=== PATIENT | female | born 1960 | race Caucasian/White ===

== ENCOUNTER 2019-05-01 23:54 | Emergency (ER) | payer OTHER, SELFPAY ==
[2019-05-02 00:03] VITALS: BP 135/71; PULSE 84; RESP 14; TEMP 37; O2SAT 99
--- NOTE | 2019-05-02 01:21 | ED.HA ---
HPI - Headache General Chief Complaint: Headache Stated Complaint: headache Time Seen by Provider: 05/02/19 01:19 Source: patient and RN notes reviewed Mode of arrival: other Limitations: no limitations History of Present Illness HPI Narrative: Pt is a 58 y/o female who presents to the ED with c/o a squeezing temporal headache that began at 4 PM yesterday, but has not improved. Pt states that she took her medication as prescribed today. Pt states that she lost her pet today. Pt states that she cried a lot. Pt notes that her temporal artery is popping out, but the artery feels the same on both sides. Pt reports a cough and chronic BLE weakness, but denies a fever, sore throat, congestion, rhinorrhea, and BLE numbness. 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: headache Onset (ago): hour(s) Location: right, left and temporal Quality & Timing: squeezing Relieving factors: nothing Context: other (recent pet loss) Associated symptoms: weakness (chronic BLE) and cough Treatments prior to arrival: other (ASA 81 mg) Related Data Home Medications Medication Instructions Recorded Confirmed cholecalciferol (vitamin D3) 4,000 4,000 unit PO DAILY 02/06/19 02/28/19 unit tablet diclofenac sodium 75 mg 75 mg PO BID 02/06/19 02/28/19 tablet,delayed release ezetimibe 10 mg tablet 10 mg PO DAILY 02/06/19 02/28/19 flu vacc qs 2018- (6 mos up) 60 vial IM 02/06/19 02/28/19 mcg (15 mcg x 4)/0.5 mL IM susp gabapentin 100 mg capsule 100 mg PO BID PRN 02/06/19 02/28/19 loratadine 10 mg capsule 10 mg PO DAILY 02/06/19 02/28/19 meclizine 25 mg tablet 25 mg PO QID PRN tablet 02/06/19 02/28/19 methocarbamol 750 mg tablet 750 mg PO DAILY tablet 02/06/19 02/28/19 pregabalin 50 mg capsule 50 mg PO DAILY cap 02/06/19 02/28/19 Allergies Allergy/AdvReac Type Severity Reaction Status Date / Time progesterone Allergy Unknown shortness Verified 02/28/19 13:24 of breath Review of Systems Review of Systems: All systems reviewed & are unremarkable except as noted in HPI and below Constitutional: Constitutional: Denies fever(s) ENT: Denies sore throat and Denies other (rhinorrhea, congestion) Respiratory: Respiratory: Reports cough Neurologic: Reports headache(s) (temporal), Denies numbness (BLE) and Reports weakness (chronic BLE) PMFSH Past Medical History Medical History Chronic midline low back pain with bilateral sciatica Fibromyalgia Mixed hyperlipidemia Osteoporosis Primary osteoarthritis, unspecified site Surgical History Surgical History History of back surgery Family History Family History (Updated 11/07/17 @ 09:02 by DOCTOR UNKNOWN) Father Hypertension Cerebrovascular accident Other Family history of coronary artery disease Family history of elevated blood lipids Social History Social History Smoking status: Never smoker Alcohol intake: never Exam Const: General: cooperative, no acute distress and alert Nutritional Appearance: well nourished Orientation/consciousness: patient oriented x3 Limitations: no limitations HENMT: Mouth: Yes lip normal and Yes moist mucous membranes Resp: Effort & Inspection: normal respiratory effort Auscultation: clear to auscultation bilaterally Cardio: Rate: regular rate Rhythm: regular rhythm GI: GI Palp: Yes Soft to palpation and No Tenderness to palpation present (GI) Auscultation: normal bowel sounds Skin: General skin exam: normal color Neuro: General: patient oriented x3 Cognition (Neuro): normal cognition Speech: normal speech Extrem: General: normal to inspection, full ROM and no clubbing, cyanosis or edema Psych: Mental Status: mental status grossly normal Affect: normal affect Attitude: cooperative Course Course Emergency Course: Patient with normal sed rate.
[2019-05-02 01:23] VITALS: BP 131/76; PULSE 63; RESP 16; TEMP 36.6; O2SAT 100
[2019-05-02] MEDS: KETOROLAC 30 MG/ML VIAL (*BKC) IV PUSH (01:46)
[2019-05-02 01:51] LABS: Basophils Absolute Auto 0.1 K/mm3 (0.0-0.1); Eosinophils Absolute Auto 0.1 K/mm3 (0-0.3); Eosinophils Percent Auto 1.5 % (0-4.4); Hematocrit 39.5 % (37.0-47.0); Immature Granulocyte Absolute 0.02 K/mm3 (0.00-0.031); Immature Granulocyte Percent A 0.3 % (0-0.5); Lymphocytes Absolute Auto 2.57 K/mm3 (0.9-3.2); Lymphocytes Percent Auto 42.4 % (18.3-44.2); Mean Corpuscular HGB Conc 32.9 g/dl (32-36); Mean Corpuscular Hemoglobin 31.3 pg (26-34); Mean Platelet Volume 9.5 fl (7.4-10.4); Monocytes Absolute Auto 0.5 K/mm3 (0.1-0.6); Monocytes Percent Auto 8.3 % (2.6-8.5); Neutrophils Absolute Auto 2.8 K/mm3 (1.3-6.7); Neutrophils Percent Auto 46.5 % (45.5-73.1); Platelet Count Result 279 k/mm3 (150-375); Red Blood Count 4.16 M/mm3 (4.2-5.4); Red Cell Distribution Width 11.6 % (11.5-14.5); White Blood Count 6.1 K/mm3 (4.5-10.0)
[2019-05-02 02:03] LABS: Blood Urea Nitrogen 11 mg/dL (7-17); Calcium 9.6 mg/dL (8.4-10.2); Carbon Dioxide 30 mmol/L (22-30); Chloride 99 mmol/L (98-107); Estimated CRCL calculation 66 ml/min; Estimated Glomerular Filt Rate > 60; Glucose 90 mg/dL (65-105); Potassium 3.9 mmol/L (3.4-5.0); Sodium 140 mmol/L (137-145)
[2019-05-02 02:16] VITALS: TEMP 36.6
[2019-05-02 02:19] LABS: Erythrocyte Sedimentation Rate 19 mm/hr (0-20)
[2019-05-02 03:14] VITALS: BP 118/83; PULSE 58; RESP 16; TEMP 36.4; O2SAT 100
== END 2019-05-02 03:18 | disposition home or self-care (01) ==
PROVIDERS: Emergency Provider Emergency Medicine; PCP Family Medicine
DX: G44.209 Tension-type headache, unspecified, not intractable (principal); M54.42 Lumbago with sciatica, left side; M54.41 Lumbago with sciatica, right side; M79.7 Fibromyalgia; E78.2 Mixed hyperlipidemia; M81.0 Age-related osteoporosis without current pathological fracture
CPT/HCPCS: 36415; 80048; 85025; 85652; 96374; 99284; J1885

== ENCOUNTER 2019-07-04 13:55 | Emergency (ER) | payer OTHER, SELFPAY ==
--- NOTE | ~2019-07-04 | XR_ITS ---
EXAMINATION: XR ankle LT min 3V DATE: 07/04/2019 14:20 INDICATION: Left ankle pain TECHNIQUE: Anteroposterior, lateral, mortise, and additional oblique view of the ankle were obtained. COMPARISON: None. FINDINGS: There is mild soft tissue swelling of the ankle near the lateral malleolus. No fracture, di slocation, or subluxation is present. IMPRESSION: 1. Soft tissue swelling without acute osseous abnormality. Reviewed, dictated and finalized at location A.
[2019-07-04 14:07] VITALS: BP 136/91; PULSE 74; RESP 16; TEMP 36.8; O2SAT 98
--- NOTE | 2019-07-04 14:07 | PC.NURSE ---
1407- pt taken from triage to xray
--- NOTE | 2019-07-04 14:13 | ED.LOWEXIN ---
HPI - Extremity Injury (Lower) General Chief Complaint: Extremity Injury, Lower Stated Complaint: Fall Left ankle pain Time Seen by Provider: 07/04/19 14:13 Source: patient and RN notes reviewed History of Present Illness HPI Narrative: Patient is a 58-year-old female that presents the urgent care with complaints of left ankle pain. Patient states that she was sitting crosslegged on the couch Monday and stood up on her foot in which fell asleep . Therefore patient states that she twisted the left ankle and fell. Patient denies hitting her head or any loss of consciousness. Denies any other acute complaints or injuries due to the fall. Patient does take chronic medication for chronic fibromyalgia pain. Patient states she has been taking her prescription medication as prescribed. No other acute complaints. Patient read the plan of care. Related Data Home Medications Medication Instructions Recorded Confirmed diclofenac potassium 75 mg PO DAILY 07/04/19 07/04/19 ergocalciferol (vitamin D2) 1 mcg WEEKLY 07/04/19 07/04/19 [Vitamin D2] fenofibrate nanocrystallized 145 mg PO DAILY 07/04/19 07/04/19 methocarbamol [Robaxin-750] 1,125 mg PO DAILY 07/04/19 07/04/19 omeprazole magnesium [Prilosec OTC] 40 mg PO DAILY 07/04/19 07/04/19 pregabalin [Lyrica] 50 mg PO DAILY 07/04/19 07/04/19 Allergies Allergy/AdvReac Type Severity Reaction Status Date / Time progesterone Allergy Unknown shortness Verified 02/28/19 13:24 of breath Review of Systems Review of Systems: Narrative: CONSTITUTIONAL: Denies fever, chills, or sweats. EYES: Denies visual changes, redness, or discharge. ENT: Denies rhinorrhea, congestion, sore throat, or otalgia. CARDIOVASCULAR: Denies chest pain, palpitations, or edema. RESPIRATORY: Denies cough or dyspnea. GASTROINTESTINAL: Denies abdominal pain, nausea, vomiting, or diarrhea. GENITOURINARY: Denies dysuria or hematuria. SKIN: Denies rash or itching. MUSCULOSKELETAL: Reports of left ankle pain radiating to the heel and lateral left foot NEUROLOGIC: Denies headache, numbness, or weakness. All other systems reviewed are negative, except as documented in HPI. [facility] Family History Family History (Updated 11/07/17 @ 09:02 by DOCTOR UNKNOWN) Father Hypertension Cerebrovascular accident Other Family history of coronary artery disease Family history of elevated blood lipids Social History Social History Smoking status: Never smoker Alcohol intake: never Gender identity (if verbalized by the patient): Female Comments At the time of my signature, I reviewed and agree with the nursing past medical, surgical, social, and family history. There is no relevant family history pertinent to the patient complaint. Exam Narrative: Exam Narrative: GENERAL: This is a well-nourished, well-developed patient, in no apparent distress. HEAD: normocephalic, atraumatic. EYES: PERRL. Sclera clear/white. Vision is grossly intact. EARS: External ears normal NOSE: External nose normal with no obvious nasal discharge THROAT: Mucous membranes moist NECK: Neck supple CARDIOVASCULAR: Regular rate and rhythm without murmurs, gallops, or rubs. RESPIRATORY: Clear to auscultation. Breath sounds equal bilaterally. No wheezes, rales, or rhonchi. SKIN: warm, intact with no suspicious lesions or rash, good texture and turgor. NEURO: awake, alert, and oriented to person, place and time. There were no obvious focal neurologic abnormalities. EXTREMITIES: mild to moderate edema to later left malleolous with moderate tenderness and eccoymosis; moderates tenderness with edema to the later left foot; postive strong left pedal pulse with capillary refill less than 2 seconds; ROM limited due to pain, difficultly with weight bearing Course Vital Signs Vital signs: Vital Signs Temperature 98.3 F 07/04/19 14:07 Pulse Rate 74 07/04/19 14:07 Respiratory Rate 16
== END 2019-07-04 14:43 | disposition home or self-care (01) ==
PROVIDERS: Emergency Provider Nurse Practitioner Family; PCP Nurse Practitioner Family
DX: S93.402A Sprain of unspecified ligament of left ankle, initial encounter (principal); S96.912A Strain of unspecified muscle and tendon at ankle and foot level, left foot, initial encounter; X50.9XXA Other and unspecified overexertion or strenuous movements or postures, initial encounter; M79.7 Fibromyalgia; I34.1 Nonrheumatic mitral (valve) prolapse; G62.9 Polyneuropathy, unspecified
CPT/HCPCS: 73610; 99213; G0463

== ENCOUNTER 2019-11-15 13:00 | Outpatient (CLI) | payer OTHER, SELFPAY ==
--- NOTE | ~2019-11-15 | US_ITS ---
EXAMINATION: US carotid duplex BI DATE: 11/15/2019 13:39 INDICATION: Other specified symptoms and signs involving the circulatory system. TECHNIQUE: Grayscale, color Doppler, and pulsed Doppler images of the cervical carotid arteries were obtained. The degree of vessel stenosis is placed in one of the following categories: normal, <50%, 5 0-69%, >=70% but less than near-occlusion, near-occlusion, or total occlusion. Note that percent sten osis relative to normal distal artery lumen diameter is indirectly measured from velocity measurement s as described by Diego, et al. Radiology 2003; [id number]. COMPARISON: None. FINDINGS: RIGHT: The right common carotid artery (CCA) peak systolic velocity (PSV) is 90 cm/s. The right internal car otid artery (ICA) PSV is 105 cm/s. The right ICA end-diastolic velocity (EDV) is 37 cm/s. The right I CA/CCA PSV ratio is 1.2. Grayscale and color Doppler images yield an estimate of <50% diameter reduct ion from plaque in the ICA. There is antegrade flow in the right vertebral artery. LEFT: The left CCA PSV is 96 cm/s. The left ICA PSV is 77 cm/s. The left ICA EDV is 38 cm/s. The left ICA/C CA PSV ratio is 0.8. Grayscale and color Doppler images yield an estimate of <50% diameter reduction from plaque in the ICA. There is antegrade flow in the left vertebral artery. IMPRESSION: 1. <50% stenosis in the right internal carotid artery. 2. <50% stenosis in the left internal carotid artery. Reviewed, dictated and finalized at location B.
== END 2019-11-15 13:01 | disposition home or self-care (01) ==
LOC: ANHIMG 13:07
PROVIDERS: PCP Nurse Practitioner Family; Visit Provider Internal Medicine Cardiovascular Disease
DX: I65.23 Occlusion and stenosis of bilateral carotid arteries (principal)
CPT/HCPCS: 93880

== ENCOUNTER 2020-05-19 14:36 | Outpatient (CLI) | payer OTHER, SELFPAY ==
[2020-05-19 15:35] LABS: Basophils Absolute Auto 0.1 K/mm3 (0.0-0.1); Basophils Percent Auto 1.3 % (0.2-1.2); Eosinophils Absolute Auto 0.1 K/mm3 (0-0.3); Eosinophils Percent Auto 1.3 % (0-4.4); Hematocrit 37.8 % (37.0-47.0); Hemoglobin 12.6 g/dL (12.0-15.0); Immature Granulocyte Absolute 0.01 K/mm3 (0.00-0.031); Immature Granulocyte Percent A 0.2 % (0-0.5); Lymphocytes Absolute Auto 1.95 K/mm3 (0.9-3.2); Lymphocytes Percent Auto 43.3 % (18.3-44.2); Mean Corpuscular HGB Conc 33.3 g/dl (32-36); Mean Corpuscular Volume 95.9 fl (80-100); Mean Platelet Volume 9.3 fl (7.4-10.4); Monocytes Absolute Auto 0.3 K/mm3 (0.1-0.6); Monocytes Percent Auto 6.7 % (2.6-8.5); Neutrophils Absolute Auto 2.1 K/mm3 (1.3-6.7); Neutrophils Percent Auto 47.2 % (45.5-73.1); Platelet Count Result 266 k/mm3 (150-375); Red Blood Count 3.94 M/mm3 (4.2-5.4); Red Cell Distribution Width 11.5 % (11.5-14.5); White Blood Count 4.5 K/mm3 (4.5-10.0)
[2020-05-19 15:38] LABS: Add Urine Microscopic? YES; Appearance Urine Clear (Clear); Bilirubin Urine Negative (Negative); Blood Urine Negative (Negative); Color Urine Yellow (Yellow); Glucose Urine UA Negative (Negative); Ketones Urine Negative (Negative); Leukocyte Esterase Ur Negative LEU/UL (Negative); Mucus Urine Rare /lpf; Nitrate Urine Negative (Negative); Protein Urine Negative (Negative); RBC Urine 0-2 /hpf (0-2); Specific Grav Ur 1.021 (1.001-1.035); Squamous Epithelial Cell Urine Rare /hpf (Few); Urobilinogen Urine Negative mg/dL (<2.0); WBC Urine 0-3 /hpf
[2020-05-19 15:49] LABS: Alanine Aminotransferase 15 U/L (4-35); Albumin Level 4.2 g/dL (3.5-5.1); Alkaline Phosphatase 43 U/L (38-126); Anion Gap 3 mmol/L (8-16); Aspartate Amino Transferase 26 U/L (14-36); Bilirubin,Total 0.4 mg/dL (0.2-1.3); Blood Urea Nitrogen 11 mg/dL (7-17); CRP < 0.5 mg/dL (<1.0); Calcium 9.2 mg/dL (8.4-10.2); Carbon Dioxide 30 mmol/L (22-30); Chloride 107 mmol/L (98-107); Creatine Kinase 56 U/L (30-135); Estimated Glomerular Filt Rate > 60; Glucose 91 mg/dL (65-105); Potassium 3.7 mmol/L (3.4-5.0); Sodium 140 mmol/L (137-145)
[2020-05-19 16:08] LABS: Erythrocyte Sedimentation Rate 17 mm/hr (0-20)
[2020-05-19 16:42] LABS: Vitamin D 25 Hydroxy 33.3 ng/mL
[2020-05-23 00:45] LABS: Aldolase 4.3 U/L (<=8.1)
== END 2020-05-19 14:37 | disposition home or self-care (01) ==
PROVIDERS: PCP Nurse Practitioner Family; Visit Provider Internal Medicine Rheumatology
DX: M25.571 Pain in right ankle and joints of right foot (principal); M25.572 Pain in left ankle and joints of left foot; Z51.81 Encounter for therapeutic drug level monitoring; R79.89 Other specified abnormal findings of blood chemistry; Z79.899 Other long term (current) drug therapy
CPT/HCPCS: 36415; 80053; 81001; 82085; 82306; 82550; 84182; 85025; 85652; 86140; 86235

== ENCOUNTER 2020-05-28 13:27 | Outpatient (CLI) | payer OTHER, SELFPAY | END 2020-05-28 13:28 | disposition home or self-care (01) | LOC: ANHCOVIDVC 13:27 | PROVIDERS: PCP Nurse Practitioner Family | DX: Z23 Encounter for immunization (principal) | CPT/HCPCS: 0001A; 91300 ==

== ENCOUNTER 2020-06-18 13:22 | Outpatient (CLI) | payer OTHER, SELFPAY | END 2020-06-18 13:23 | disposition home or self-care (01) | LOC: ANHCOVIDVC 13:22 | PROVIDERS: PCP Nurse Practitioner Family | DX: Z23 Encounter for immunization (principal) | CPT/HCPCS: 0002A; 91300 ==

== ENCOUNTER 2020-08-05 14:49 | Outpatient (CLI) | payer OTHER, SELFPAY ==
--- NOTE | ~2020-08-05 | XR_ITS ---
XR_CERV2-3V_CR DATE: 08/05/2020 15:38 INDICATION: Pain between scapulas. Left hand pain. Head tingling. TECHNIQUE: AP, open-mouth, lateral, swimmer views COMPARISON: 01/06/2017 cervical spine FINDINGS: Osteopenia. C1 and C2 are normally aligned and the odontoid process is intact. No fracture or dislocation or lock ed facet. There is anterior fusion at C5-6. There is severe degenerative disease at C6-7. There is levoscoliosis of the upper thoracic spine. IMPRESSION: Status post anterior fusion at C5-6 Severe degenerative disc disease at C6-7 Osteopenia Reviewed, dictated and finalized at Location A. Reviewed, dictated and finalized at location B.
--- NOTE | ~2020-08-05 | XR_ITS ---
XR lumbar spine 2-3V DATE: 08/05/2020 15:39 INDICATION: Bilateral leg pain, numbness, tingling TECHNIQUE: AP, lateral, coned lateral lumbosacral views COMPARISON: 12/2015 MRI lumbar spine FINDINGS: There is diffuse osteopenia. There is 22 degrees rotatory levoscoliosis of the lower thoracic and lumbar spine measured from T12 t o L3. There is severe degenerative disc disease at L1-2, particularly on the right and moderately prominent degenerative disease at L2-3. No fracture or bone destruction is evident. No spondylolisthesis. The included lower thoracic and lum bar pedicles appear intact. The sacroiliac joints appear normal. IMPRESSION: 22 degrees rotatory levoscoliosis from T12 to L3 Degenerative disc disease involving particularly L1-2 and L2-3 Osteopenia Reviewed, dictated and finalized at location B.
== END 2020-08-05 14:50 | disposition home or self-care (01) ==
PROVIDERS: PCP Family Medicine; Visit Provider Family Medicine
DX: M51.36 Other intervertebral disc degeneration, lumbar region (principal); M85.88 Other specified disorders of bone density and structure, other site; M50.323 Other cervical disc degeneration at C6-C7 level; Z98.1 Arthrodesis status
CPT/HCPCS: 72040; 72100

== ENCOUNTER 2020-08-11 09:04 | Outpatient (CLI) | payer OTHER, SELFPAY ==
--- NOTE | 2020-08-26 13:25 | WPDHOMESLEEP ---
Sleep Study - Home Unattended Date of Study: 08/11/20 Ordering Provider: Krishna Marino DO Interpreting Provider: Julissa Douglas MD Home Sleep Study Type: Apnea Link Air Height: 1.65 m Weight: 63.503 kg Body Mass Index: 23.3 Neck Circumference (inches): 11 [place]: 4 Reason for Sleep Study wakes up feeling tired, fatigued throughout the day Sleep History Sarah Quintana is a 59 year old female who has non refreshing sleep, wakes up feeling tired and she feels that she is dragging throughout the day. She has seen a shaft mechanic and a neurologist. She rarely awakens from sleep feeling short of breath. She occasionally awakens at night coughing. She occasionally snores loudly enough that others complain about it. She occasionally has trouble sleeping with a cold. She rarely wakes up gasping for breath at night. In the distant past she woke up gasping for breath and went to the emergency department. She does not have breathing problems at night observed by others. She does not sweat excessively at night. She frequently notices her heart pounding or beating irregularly night. She rarely falls asleep during the day after a big dinner. She does not fall asleep involuntarily or while driving. She does not have loss of muscle tone with strong emotion. She does not have daytime difficulties due to her excessive sleepiness. She does not feel paralyzed on waking or falling asleep. She rarely has vivid dreamlike scenes upon awakening or falling asleep. She frequently feels afraid to go to sleep. She rarely has nightmares. She rarely remembers her dreams. She does not have racing thoughts. She frequently has anxiety and muscular tension. She does not notice parts of her body jerking. She does not kick at night she does not have crawling or aching feelings in her legs. She constantly has leg pain at night. She does not have morning jaw pain. Her dentist tells her that she has evidence that she grinds her teeth or clenches her teeth at night. She constantly has bothered by pain during the day, constantly awakened by pain at night and constantly wakes up feeling stiff in the morning. She frequently wakes up with sore achy muscles as well as pain in the neck and spine. she has headaches and pain in her neck, palpitations at night, fatigue, and concentration difficulties. Normal bedtime is never the same, and she has not set bedtime. It takes her between 15 and 20 minutes to go to sleep. She typically wakes up 1 or 2 times at night, will read the Bible and do housework. She stays awake on average 30 minutes. Her weekend schedule is also variable. She estimates getting 6-7 hours of sleep some nights. She does not take naps in the afternoon or evening. Short naps are not refreshing. She is drowsy after waking for 3 hours or longer. She feels better in the evening compared other times of day. Habits: No significant smoking history. Caffeine 3 cups a day. No alcohol or recreational drugs. [facility] Past Medical History Medical History Chronic midline low back pain with bilateral sciatica Chronic neck and back pain Fibromyalgia Mixed hyperlipidemia Osteoporosis Primary osteoarthritis, unspecified site Surgical History Surgical History History of cervical spinal surgery 2004 Family History Family History Father Hypertension Cerebrovascular accident Other Family history of coronary artery disease Family history of elevated blood lipids Social History Social History Smoking status: Never smoker Alcohol intake: never Gender identity (if verbalized by the patient): Female Medications Home Medications Medication Instructions Recorded Confirmed Type pregabalin [Lyrica] 50 mg PO DAILY 07/04/19 05
[2020-08-26 13:27] VITALS: BMI 23.3
== END 2020-08-12 09:47 | disposition home or self-care (01) ==
LOC: ANHCSM 09:04
PROVIDERS: PCP Family Medicine; Visit Provider Internal Medicine Cardiovascular Disease
DX: G47.10 Hypersomnia, unspecified (principal); Z72.821 Inadequate sleep hygiene
CPT/HCPCS: 95806

== ENCOUNTER 2021-01-07 11:00 | Outpatient (RCR) | payer OTHER, SELFPAY ==
--- NOTE | 2020-10-09 16:33 | PTOPEVAL ---
Thank you for referring Sarah Quintana to [facility].? The patient is scheduled to be seen for therapy? 2 x/week for 8 weeks. Please review, sign, date and return this plan of care HERMELINDO. I agree with and certify that the following plan of care is medically necessary. Referring Physician Date Attending Provider: Yesica Bennett, RANGE MECHANIC-BC Diagnosis lumbar radiculopathy Onset chronic Additional Evaluation Detail She had prior aquatic therapy She performs HEP of stationary ball balancing, local pool at [facility], isometrics She had a left ankle injury . she walks on the grass and rocks then 1 step to enter house. x-ray 22 degrees rotatory levoscoliosis from T12 to L3 Degenerative disc disease involving particularly L1-2 and L2-3 Osteopenia Subjective Information She has been using her wc more Query Text:As Reported By Patient/ due to increased back pain. Family She was pushing her her manual wc on the sidewalks or using the wc as a walker. She is able to manually propel the wc 1 block. She is able to walk behind it for ~1 block. She uses a scooter in the stores. She had a progression of her symptoms, but is unsure of reason. She c/o leg and buttock pain, pain from rib cage to feet region. c/o dull pain posterior knee region. She is limited with riding in a car, performing daily task due to pain, standing, and sleeping. Denies incontentence or numbness of saddle region. C/o difficulty catching her breathing. Pain Assessment Leg(s) Reported Pain Level 6 Pain Description Aching,Numbness,Radiating, Tingling Pain Radiation Left Leg,Right Leg Pain Frequency Chronic,Continuous Lowest Pain Intensity
--- NOTE | 2021-01-07 11:56 | PCPTNOTE ---
Admitting Provider: Attending Provider: Yesica Bennett, BELT CUTTER-BC Patient:Sarah Quintana Date of :1960 Discharge Summary Patient had her initial visit was on 10/09/2020 she had a total of 13 visits consisting of land and aquatic therapy. She demonstrates improved tolerance with daily task, walking, and sitting ability. She has returned to the fitness center for indep performance of aquatic exercises. She is also indep with a land home program. She has achieved maximal potential with skilled therapy services with goals partially met. Will DC skilled therapy services at this time. Thank you for referring this patient to [facility]. Please review, sign, date and return this discharge summary HERMELINDO. I have been updated about the patient's current status and I agree with discharge from the above service at this time. Referring Physician Date
== END 2021-01-07 23:59 | disposition home or self-care (01) ==
LOC: ANHPT 11:00
PROVIDERS: PCP Family Medicine; Visit Provider Nurse Practitioner Family
DX: M54.16 Radiculopathy, lumbar region (principal); M54.5 Low back pain
CPT/HCPCS: 97110; 97113; 97116; 97163; 97530

== ENCOUNTER 2021-02-09 13:09 | Outpatient (CLI) | payer OTHER, SELFPAY ==
--- NOTE | ~2021-02-09 | XR_ITS ---
XR hip BI 2V w AP pelvis 02/09/2021 13:37 Indication: Bilateral hip pain Procedure: AP pelvis and 2 views each hip Comparison: No prior studies for comparison. Findings: The hips are symmetric. No significant degenerative change. No fracture or traumatic malali gnment. Sacral foramen are symmetric. Impression: 1: No significant bone or joint abnormality. Reviewed, dictated and finalized at location A. ANICAL TECHNOLOGIST Impression: 1: No significant bone or joint abnormality.
== END 2021-02-09 13:10 | disposition home or self-care (01) ==
LOC: ANHIMG 13:16
PROVIDERS: PCP Family Medicine; Visit Provider Family Medicine
DX: G89.29 Other chronic pain (principal); M25.551 Pain in right hip; M25.552 Pain in left hip
CPT/HCPCS: 73521

== ENCOUNTER 2021-06-14 13:23 | Outpatient (CLI) | payer OTHER, SELFPAY ==
--- NOTE | ~2021-06-14 | MR_ITS ---
. EXAMINATION: MR lumbar spine wo con DATE: 06/14/2021 14:54 INDICATION: Lumbago. Lumbar radiculopathy. TECHNIQUE: Magnetic resonance imaging (MRI) of the lumbar spine was performed without intravenous con trast. Sequences included sagittal T2-weighted FSE, sagittal and coronal T2-weighted FS FSE, sagittal T1-weighted FSE, and axial T2-weighted FSE. COMPARISON: Lumbar spine MRI 12/22/2015 FINDINGS: There is 23 degrees levoscoliosis of lumbar spine. There is 3 mm retrolisthesis of L1 on L2 . Vertebral body heights are normal. There is severely decreased disc height at L1-L2, moderately dec reased disc height at L2-L3, mildly decreased disc height at L3-L4 and L4-L5, and moderately decrease d disc height at L5-S1. The distal spinal cord signal intensity is normal. The conus medullaris is at L1. The following disc levels are specifically discussed: L1-L2: The disc is bulging. There is mild bilateral facet joint osteoarthritis. There is moderate rig ht and mild left neural foraminal stenosis. There is mild central canal stenosis. L2-L3: The disc is bulging. There is mild bilateral facet joint osteoarthritis. There is mild bilater al neural foraminal stenosis. There is mild central canal stenosis. L3-L4: The disc is bulging. There is moderate right and mild left facet joint osteoarthritis. There i s mild bilateral neural foraminal stenosis. There is mild central canal stenosis. L4-L5: The disc is bulging and has an annular fissure. There is moderate bilateral facet joint osteoa rthritis. There is mild bilateral neural foraminal stenosis. There is mild central canal stenosis. L5-S1: The disc is bulging and has an annular fissure. There is severe bilateral facet joint osteoart hritis. There is mild bilateral neural foraminal stenosis. There is mild central canal stenosis. IMPRESSION: 1. Severe lumbar spondylosis, worsened from 12/22/2015. 2. Lumbar levoscoliosis. Reviewed, dictated and finalized at location A.
--- NOTE | ~2021-06-14 | MR_ITS ---
EXAMINATION: MR cervical spine wo/w con DATE: 06/14/2021 14:54 INDICATION: Neck pain. TECHNIQUE: Magnetic resonance imaging (MRI) of the cervical spine was performed without and with 13 m L MultiHance intravenous contrast. Sequences included sagittal and axial T2-weighted FSE, sagittal T2 -weighted FS FSE, and sagittal and axial T1-weighted FSE. Postcontrast sequences included sagittal an d axial T1-weighted FS FSE. COMPARISON: Cervical spine MRI 12/22/2015 FINDINGS: Bone alignment is normal. There are changes of anterior fusion procedure at C5-C6 with disc ectomy and healed interbody bone graft. Vertebral body heights are normal. There is mildly decreased disc height at C4-C5 and severely decreased disc height at C6-C7 with endplate remodeling. The follow ing disc levels are specifically discussed: C2-C3: The disc does not extend beyond the endplate margin. There is mild right uncovertebral joint o steoarthritis. There is mild right facet joint osteoarthritis. There is mild right neural foraminal s tenosis. There is no central canal stenosis. C3-C4: The disc does not extend beyond the endplate margin. There is mild bilateral uncovertebral inocencio nt osteoarthritis. There is mild right and severe left facet joint osteoarthritis. There is mild left neural foraminal stenosis. There is no central canal stenosis. C4-C5: The disc does not extend beyond the endplate margin. There is mild bilateral uncovertebral inocencio nt osteoarthritis. There is severe bilateral facet joint osteoarthritis. There is mild bilateral neur al foraminal stenosis. There is no central canal stenosis. C5-C6: There is mild left uncovertebral joint hypertrophy. There is no facet joint osteoarthritis. Th ere is mild left neural foraminal stenosis. There is no central canal stenosis. C6-C7: The disc is bulging. There is severe bilateral uncovertebral joint osteoarthritis. There is mi ld bilateral facet joint osteoarthritis. There is mild right and moderate left neural foraminal steno sis. There is mild central canal stenosis. C7-T1: The disc does not extend beyond the endplate margin. There is no uncovertebral joint osteoarth ritis. There is mild right and severe left facet joint osteoarthritis. There is no neural foraminal s tenosis. There is no central canal stenosis. IMPRESSION: 1. Severe cervical spondylosis, stable from 12/22/2015. 2. Anterior fusion at C5-C6. Reviewed, dictated and finalized at location A.
== END 2021-06-14 13:24 | disposition home or self-care (01) ==
LOC: ANHIMG 13:26
PROVIDERS: PCP Family Medicine; Visit Provider Nurse Practitioner Family
DX: M47.22 Other spondylosis with radiculopathy, cervical region (principal); Z98.1 Arthrodesis status; M47.26 Other spondylosis with radiculopathy, lumbar region
CPT/HCPCS: 72148; 72156; A9577

== ENCOUNTER 2021-09-29 13:21 | Outpatient (CLI) | payer OTHER, SELFPAY ==
--- NOTE | ~2021-09-29 | CT_ITS ---
EXAMINATION: CT abdomen pelvis w con DATE: 09/29/2021 14:13 INDICATION: Abdominal pain and bloating. Lower back pain. TECHNIQUE: Computed tomography (CT) of the abdomen and pelvis was performed with 100 CC Omnipaque 300 intravenous contrast. Automated exposure control and iterative reconstruction technique were employe d. Exam dose: 325.11 mGy-cm total exam DLP. COMPARISON: 01/12/2018 complete abdominal ultrasound examination FINDINGS: Prominent left lower lobe calcified pulmonary granuloma. No infiltrate or consolidation or suspicious mass lesion is noted at the lung bases. Heart size is normal. No pericardial or pleural ef fusion. 5.7 mm left hepatic cyst. Gallbladder is present and appears unremarkable. No bile duct or pancreatic duct dilatation. No pancreatic mass lesion or calcification. Normal splenic size. Normal morphology of the adrenal glands. No renal mass lesion or urinary tract calculus or hydronephrosis. The urinary bladder is unremarkable . Retroverted uterus. Bilateral prominent adnexal vessels, left greater than right, suggesting pelvic congestion syndrome. Minimal sigmoid: Diverticulosis; no evidence of diverticulitis. No bowel obstruction or intraperitone al free air is detected. No evidence of appendicitis. Small fat-containing umbilical hernia. Scoliosis. Multilevel degenerative disc disease, most severe at L1-2 and L5-S1. No suspicious osteolytic or osteosclerotic lesions are noted. IMPRESSION: Small left hepatic cyst Bilateral pelvic congestion syndrome, left greater than right Minimal left colon diverticulosis; no evidence of diverticulitis Scoliosis and multilevel degenerative disc disease of the lumbar spine Reviewed, dictated and finalized at Location [facility]. Reviewed, dictated and finalized at location A.
== END 2021-09-29 13:22 | disposition home or self-care (01) ==
PROVIDERS: PCP Family Medicine; Visit Provider Nurse Practitioner
DX: R10.9 Unspecified abdominal pain (principal); K42.9 Umbilical hernia without obstruction or gangrene; M41.9 Scoliosis, unspecified; K76.89 Other specified diseases of liver; M47.817 Spondylosis without myelopathy or radiculopathy, lumbosacral region; K57.30 Diverticulosis of large intestine without perforation or abscess without bleeding; N85.4 Malposition of uterus
CPT/HCPCS: 74177; Q9967

== ENCOUNTER 2021-12-21 12:21 | Outpatient (CLI) | payer OTHER, SELFPAY ==
--- NOTE | ~2021-12-21 | US_ITS ---
EXAMINATION: US pelvic complete w TV DATE: 12/21/2021 13:11 INDICATION: Pelvic pain with pelvic fullness Comparison:Ultrasound dated 07/19/2005 TECHNIQUE: Multiple transabdominal and endovaginal sonographic images of the pelvis performed. FINDINGS: The uterus measures 6.3 x 5.2 x 3.5 cm. There is a uterine fibroid measuring 2.6 x 2.1 x 2. 1 cm. There is a nabothian cysts. The endometrial complex measures 1.4 mm. The ovaries are not visualized. There are prominent parametrial vessels, suspicious for pelvic conges tion syndrome. There is no free fluid in the pelvis. There are no abnormal masses seen on either side. IMPRESSION: 1. Uterine fibroid measuring 2.6 cm maximum dimension. 2: Prominent parametrial vessels, suspicious for pelvic congestion syndrome. Reviewed, dictated and finalized at location A.
== END 2021-12-21 12:22 | disposition home or self-care (01) ==
LOC: ANHIMG 12:25
PROVIDERS: PCP Family Medicine; Visit Provider Family Medicine
DX: N94.89 Other specified conditions associated with female genital organs and menstrual cycle (principal); R10.2 Pelvic and perineal pain; D25.9 Leiomyoma of uterus, unspecified
CPT/HCPCS: 76830; 76856

== ENCOUNTER 2022-01-26 00:55 | Day surgery (SDC) | payer OTHER, SELFPAY ==
[2022-01-20 14:11] VITALS: BMI 23.8
[2022-01-26 11:45] VITALS: BP 101/78; PULSE 65; RESP 18; TEMP 36.5; O2SAT 100; BMI 22.6
[2022-01-26] MEDS: LACTATED RINGERS 1,000 ML 150 ML IV CONT (12:17)
--- NOTE | 2022-01-26 12:38 | PM.HPGS ---
History of Present Illness History of Present Illness Consent: Risks, benefits, and alternatives have been discussed and questions answered. Patient agrees to proceed with procedure. Chief complaint: abd pain, bloating; francisco screen, hx of colon polyps Narrative: Sarah Quintana is a 61 year old female with bloating and abdominal discomfort, recent ultrasound showed Prominent parametrial vessels, suspicious for pelvic congestion syndrome. Last colonoscopy with polyp. Review of Systems Constitutional: Constitutional: Denies headache(s) and Denies weakness Eyes: Eyes: Denies blurry vision ENT: Reports Normal hearing present, Denies headache(s) and Denies neck pain Cardiovascular: Cardiovascular: Denies chest pain and Denies dyspnea Respiratory: Respiratory: Denies dyspnea Gastrointestinal: Gastrointestinal: Reports no additional gastrointestinal complaints Genitourinary: Genitourinary: Denies dysuria Musculoskeletal: Musculoskeletal: Denies neck pain Integumentary/Breasts: Skin/Breast: Denies dry skin Neurologic: Reports Normal hearing present, Denies headache(s) and Denies weakness Psychiatric: Psychiatric: Denies anxiety Endocrine: Endocrine: Denies change in body appearance Hematologic/Lymphatic: Hematologic/Lymphatic: Denies easy bleeding Allergic/Immunologic: Allergic/Immunologic: Denies urticaria PMFSH Past Medical History Medical History (Updated 01/26/22 @ 12:39 by Manny Ramirez MD) Adenomatous colon polyp Bloating Chronic hip pain, bilateral Chronic neck and back pain Fibromyalgia Mixed hyperlipidemia Osteoporosis Pelvic congestion syndrome Primary osteoarthritis, unspecified site Suprapubic discomfort Surgical History Surgical History History of cervical spinal surgery 2004 Family History Family History Father Hypertension Cerebrovascular accident Other Family history of coronary artery disease Family history of elevated blood lipids Social History Social History Smoking status: Never smoker Alcohol intake: never Substance use: never Substance use type: does not use Lack of Transportation: No Lack of Food: Never True Current Housing: I Have Housing Concerned About Future Housing: Decline to Answer Difficulty Paying Gas/Electric Bills: No Difficulty Paying for Meds: No Currently Unemployed: No Education: Decline to Answer Difficulty w/ Childcare or Family Care: No Living arrangements: with family Gender identity (if verbalized by the patient): Female Spiritual care concerns: No Meds Home Medications and Allergies Home Medications Medication Instructions Recorded Confirmed Type loratadine 10 mg tablet (Claritin) 10 mg PO DAILY 07/02/20 01/26/22 History pregabalin 50 mg capsule (Lyrica) 50 mg PO DAILY #90 caps 09/07/21 01/26/22 Rx gabapentin 100 mg capsule See Rx Instructions .Route 11/15/21 01/26/22 Rx .COMPLEX #30 caps methocarbamol 750 mg tablet 1,125 mg PO .QD #90 ea 11/15/21 01/26/22 Rx rosuvastatin 40 mg tablet 40 mg PO DAILY #90 tabs 12/17/21 01/26/22 Rx famotidine 40 mg tablet See Rx Instructions .Route 12/20/21 01/26/22 Rx .COMPLEX #60 tabs diclofenac sodium 75 mg 75 mg PO BID #60 ea 01/06/22 01/26/22 Rx tablet,delayed release Allergies Allergy/AdvReac Type Severity Reaction Status Date / Time progesterone Allergy Unknown shortness Verified 01/26/22 11:44 of breath Vital Signs Vital Signs - 24 hr 01/26/22 11:45 Temperature 97.7 F Pulse Rate 65 Respiratory Rate 18 Blood Pressure 101/78 Pulse Oximetry 100 Oxygen Delivery Room Air Exam Const: General: comfortable and no acute distress HENMT: Face/Nose/Sinus: Normal nares present Eyes: General: appearance normal, both eyes and all related structures Neck: Neck: no JVD Resp:
--- NOTE | 2022-01-26 12:39 | WPDANESEPPF ---
Anes - Initial Pre Proc Eval Procedure: Operation Date: 01/26/22 13:00 Proposed Procedures p Esophagogastroduodenoscopy & Screening Colonscopy - Manny Ramirez MD Date/Time: 01/26/22 12:39 Surgeon: Manny Ramirez MD Pre Op Diagnosis: abd pain, bloating; francisco screen, hx of colon polyps Patient Data Age: 61 Gender: F Height: 1.65 m Weight: 61.7 kg Last Vital Signs Temp 97.7 F 01/26/22 11:45 Pulse 65 01/26/22 11:45 Resp 18 01/26/22 11:45 BP 101/78 01/26/22 11:45 Pulse Ox 100 01/26/22 11:45 O2 Del Method Room Air 01/26/22 11:45 Allergies Allergy/AdvReac Type Severity Reaction Status Date / Time progesterone Allergy Unknown shortness Verified 01/26/22 11:44 of breath Home Medications Medication Instructions Recorded Confirmed Type loratadine 10 mg tablet (Claritin) 10 mg PO DAILY 07/02/20 01/26/22 History pregabalin 50 mg capsule (Lyrica) 50 mg PO DAILY #90 caps 09/07/21 01/26/22 Rx gabapentin 100 mg capsule See Rx Instructions .Route 11/15/21 01/26/22 Rx .COMPLEX #30 caps methocarbamol 750 mg tablet 1,125 mg PO .QD #90 ea 11/15/21 01/26/22 Rx rosuvastatin 40 mg tablet 40 mg PO DAILY #90 tabs 12/17/21 01/26/22 Rx famotidine 40 mg tablet See Rx Instructions .Route 12/20/21 01/26/22 Rx .COMPLEX #60 tabs diclofenac sodium 75 mg 75 mg PO BID #60 ea 01/06/22 01/26/22 Rx tablet,delayed release Patient hx anesthesia problems: none Family hx anesthesia problems: none Results Review: All pre-operative results and documents have been reviewed as part of the pre-operative evaluation. [facility] Past Medical History Medical History (Updated 01/26/22 @ 12:39 by Manny Ramirez MD) Adenomatous colon polyp Bloating Chronic hip pain, bilateral Chronic neck and back pain Fibromyalgia Mixed hyperlipidemia Osteoporosis Pelvic congestion syndrome Primary osteoarthritis, unspecified site Suprapubic discomfort Surgical History Surgical History History of cervical spinal surgery 2004 Family History Family History Father Hypertension Cerebrovascular accident Other Family history of coronary artery disease Family history of elevated blood lipids Social History Social History Smoking status: Never smoker Alcohol intake: never Substance use: never Substance use type: does not use Lack of Transportation: No Lack of Food: Never True Current Housing: I Have Housing Concerned About Future Housing: Decline to Answer Difficulty Paying Gas/Electric Bills: No Difficulty Paying for Meds: No Currently Unemployed: No Education: Decline to Answer Difficulty w/ Childcare or Family Care: No Living arrangements: with family Gender identity (if verbalized by the patient): Female Spiritual care concerns: No Anes - Eval Final PreProcedure Day of Procedure 01/26/22 12:39 Patient weight: normal Heart: regular rate and rhythm Lungs: clear to auscultation Airway: Mallampati scale class II Neurological: alert and oriented Last oral intake: >/= 8 hours ASA classification: III Emergent: no Anesthetic plan: proceed Anesthesia type and monitoring: general GIVS and standard monitoring Results Review: All pre-operative results and documents have been reviewed as part of the pre-operative evaluation. Informed Consent: The patient's anesthetic plan and its attendant risks and benefits were discussed with the patient/family/POA. Questions were solicited and answers provided to the satisfaction of the patient/family/POA.
[2022-01-26] MEDS: BENZOCAINE (*SP) 60 ML SPRAY CAN (HURRICAINE) 1 SPRAY MUCOUS MEM (12:42)
--- NOTE | 2022-01-26 13:08 | SUR.OPER ---
EGD START 1244, END 1251 COLONOSCOPY START 1256, END 1306
[2022-01-26 13:10] VITALS: BP 102/62; PULSE 78; RESP 15; O2SAT 98
[2022-01-26 13:20] VITALS: BP 103/70; PULSE 73; RESP 24; O2SAT 100
[2022-01-26 13:30] VITALS: BP 106/76; PULSE 68; RESP 21; O2SAT 100
== END 2022-01-26 13:50 | disposition home or self-care (01) ==
PROVIDERS: PCP Family Medicine; Visit Provider Internal Medicine Gastroenterology
PROC: 0DJ08ZZ Inspection of Upper Intestinal Tract, Via Natural or Artificial Opening Endoscopic (ICD-10-PCS; CPT 43235; principal; 2022-01-26 13:00)
DX: Z12.11 Encounter for screening for malignant neoplasm of colon (principal); K64.8 Other hemorrhoids; Z86.010 Personal history of colon polyps; K44.9 Diaphragmatic hernia without obstruction or gangrene; K22.2 Esophageal obstruction; K29.70 Gastritis, unspecified, without bleeding; E78.2 Mixed hyperlipidemia; M79.7 Fibromyalgia; N94.89 Other specified conditions associated with female genital organs and menstrual cycle; M81.0 Age-related osteoporosis without current pathological fracture; M54.9 Dorsalgia, unspecified; M54.2 Cervicalgia; G89.29 Other chronic pain
CPT/HCPCS: 45378; 43239; 43249; 88305; C1726; J2704; J7120

== ENCOUNTER 2022-08-09 14:23 | Outpatient (CLI) | payer OTHER, SELFPAY ==
--- NOTE | ~2022-08-09 | MM_ITS ---
EXAMINATION: MM screening [facility] BI w [facility] HISTORY: Screening mammogram TECHNIQUE: Craniocaudal and mediolateral oblique 3-D tomosynthesis images were obtained and synthetic 2-D images were generated. CAD analysis was submitted and interpreted. COMPARISON: 01/20/2016, 08/19/2014, 08/16/2013 BREAST PARENCHYMAL COMPOSITION: The breasts are heterogeneously dense, which may obscure small masses . FINDINGS: No suspicious mass, calcification, or architectural distortion are identified in either capo ast to suggest malignancy. There has been no suspicious interval change. IMPRESSION: 1. No mammographic evidence of malignancy. 2. Recommend routine screening mammography in one year. BI-RADS Category 1: Negative Reviewed, dictated and finalized at location A.
--- NOTE | ~2022-08-09 | DEXA_ITS ---
Bone Density Report Name: WILFRED PENDLETON Age: 61 Sex: Female Ethnicity: White Date of : 1960 Indication: osteopenia; height loss;postmenopausal Referring Provider: VALORIE GALLO Study: Bone densitometry was performed. Exam Date: August 09, 2022 Accession number: [id number] Bone Density: Region BMD T-score Z-score Classification AP Spine(L1-L4) 0.873 -1.6 -0.1 Osteopenia Femoral Neck (Left) 0.501 -3.1 -1.8 Osteoporosis Total Hip (Left) 0.556 -3.2 -2.2 Osteoporosis Femoral Neck (Right) 0.624 -2.0 -0.7 Osteopenia Total Hip (Right) 0.694 -2.0 -1.1 Osteopenia Total Hip Mean 0.625 -2.6 -1.7 Osteoporosis World Health Organization criteria for BMD impression classify patients as: Normal (T-score at or above -1.0), Osteopenia (T-score between -1.0 and -2.5), or Osteoporosis (T-score at or below -2.5). 10-year Fracture Risk: FRAX not reported because: Some T-score for Spine Total or Hip Total or Femoral Neck at or below -2.5 Previous Exams: Region Exam Age BMD T-score BMD Change BMD Change Date g/cm2 vs Baseline vs Previous AP Spine (L1-L4) 08/09/2022 61 0.873 -1.6 -0.023 (-2.5%) -0.023 (-2.5%) 01/20/2016 55 0.896 -1.4 Total Hip(Left) 08/09/2022 61 0.556 -3.2 -0.177 (-24.1% -0.177 (-24.1% 01/20/2016 55 0.734 -1.7 Total Hip(Right) 08/09/2022 61 0.694 -2.0 -0.042 (-5.7%) -0.042 (-5.7%) 01/20/2016 55 0.736 -1.7 *Denotes significance at 95% confidence level, LSC for AP Spine = 0.022 g/cm2, LSC for Total Hip = 0.027 g/cm2 # Denotes dissimilar scan types or analysis methods Clinical Information Provided by Patient: Has used the following medications: Vitamin D Patient maximum height was 66.5 Menopause Age: 54 No regular weight bearing exercise Drinks caffeinated beverages Onset of menses at age 16 Number of children 2 Impression: The patient has osteoporosis, based on the Left Total Hip T-score. The BMD for the Total Hip(Right) decreased, changing by -5.7% since the last DXA exam. Discussion: HIGH RISK OF FRACTURE. BONE DENSITY IS UNDESIRABLY LOW AT ONE OR MORE SKELETAL SITES, CONSISTENT WITH OSTEOPOROSIS. ALSO, BONE DENSITY IS LOWER THAN EXPECTED FOR AGE AND SEX AT ONE OR MORE SKELETAL SITES; RECOMMEND A DILIGENT SEARCH FOR SECONDARY CAUSES OF BONE LOSS. This patient's lowest T-score meets the World Health Organization's (WHO) criteria for osteoporosis at one or more sites (T-score -2.5 or below). In untreated patients,
== END 2022-08-09 14:24 | disposition home or self-care (01) ==
PROVIDERS: PCP Family Medicine; Visit Provider Nurse Practitioner
DX: Z12.31 Encounter for screening mammogram for malignant neoplasm of breast (principal); Z78.0 Asymptomatic menopausal state; M85.88 Other specified disorders of bone density and structure, other site; M81.0 Age-related osteoporosis without current pathological fracture; M85.851 Other specified disorders of bone density and structure, right thigh
CPT/HCPCS: 77063; 77067; 77080

== ENCOUNTER 2022-10-12 09:44 | Outpatient (CLI) | payer OTHER, SELFPAY ==
--- NOTE | 2022-10-12 09:54 | ECHO_ITS ---
Patient Info Name: Sarah Quintana Age: 61 years : 1960 Gender: Female Ht: 64 in Wt: 142 lbs BSA: 1.72 m2 HR: 72 bpm BP: 125 / 71 mmHg Heart Rhythm: Sinus Rhythm Technical Quality: Good Exam Date: 10/12/2022 10:01 AM Exam Location: [facility] Patient Status: Outpatient Admit Date: 10/12/2022 Staff Ordering Physician: Krishna Marino DO Vat Washer: Emilee Mendez RDCS Attending Provider: Krishna Marino DO Referring Physician: Ned EUBANKS; Exam Type: CA echo doppler color flow Study Info Indications R06.09 - Other forms of dyspnea Complete two-dimensional, color flow and Doppler transthoracic echocardiogram is performed. Summary 1. Complete two-dimensional, color flow and Doppler transthoracic echocardiogram is performed. 2. Left ventricular chamber dimension is normal. 3. Left ventricular systolic function is normal, estimated at 65-70%. 4. The left ventricular diastolic function is abnormal. 5. E/e' 10 is mildly elevated. 6. There is trace mitral valve regurgitation. 7. There is trace tricuspid valve regurgitation. 8. No pulmonary hypertension, estimated pulmonary arterial systolic pressure is 25 mmHg. 9. Normal inferior vena cava with >50% collapse upon inspiration consistent with elevated right atrial pressure, 10 mmHg. Left Ventricle E/e' 10 is mildly elevated. Left ventricular chamber dimension is normal. Left ventricular systolic function is normal, estimated at 65-70%. The left ventricular diastolic function is abnormal. Right Ventricle Right ventricular systolic function is normal and with normal TAPSE 2.4 cm. Right ventricular chamber dimension is normal. Left Atria Left atrial chamber dimension is normal. Right Atria Right atrial chamber dimension is normal. Aortic Valve The aortic valve is trileaflet. There is no aortic valve stenosis. There is no aortic valve regurgitation. Pulmonic Valve There is no pulmonic regurgitation. Mitral Valve There is no mitral valve stenosis. There is trace mitral valve regurgitation. Tricuspid Valve There is trace tricuspid valve regurgitation. No pulmonary hypertension, estimated pulmonary arterial systolic pressure is 25 mmHg. Pericardium/Pleural There is no pericardial effusion. Inferior Vena Cava Normal inferior vena cava with >50% collapse upon inspiration consistent with elevated right atrial pressure, 10 mmHg. Aorta The aortic root size at the sinus of Valsalva is normal. Left Ventricular Outflow Tract Name Value Normal LVOT 2D LVOT Diameter 2.0 cm LVOT Doppler LVOT Peak Gradient 2 mmHg LVOT Mean Gradient 1 mmHg LVOT VTI 18 cm LVOT VTI/AV VTI Ratio 0.7 LVOT Stroke Volume 57 ml LVOT CO 3.2 l/min LVOT CI 1.9 l/min/m2 Pulmonic Valve Name Value Normal RVOT Doppler
== END 2022-10-12 09:45 | disposition home or self-care (01) ==
LOC: ANHCARD 09:45
PROVIDERS: PCP Family Medicine; Visit Provider Internal Medicine Cardiovascular Disease
DX: R06.09 Other forms of dyspnea (principal); R93.1 Abnormal findings on diagnostic imaging of heart and coronary circulation
CPT/HCPCS: 93306

== ENCOUNTER 2023-01-19 17:11 | Outpatient (CLI) | payer OTHER, SELFPAY ==
--- NOTE | ~2023-01-19 | XR_ITS ---
XR wrist LT min 3V 01/19/2023 17:32 Indication: Chronic left wrist pain Procedure: 4 views left wrist Comparison: No prior studies for comparison. Findings: Mild osteoarthritis of the first carpal metacarpal and triscaphe joints. No fracture or tra umatic malalignment. No significant soft tissue abnormality. No foreign bodies. Impression: 1: Mild polyarticular osteoarthritis. Reviewed, dictated and finalized at location A. Impression: 1: Mild polyarticular osteoarthritis.
== END 2023-01-19 17:12 | disposition home or self-care (01) ==
PROVIDERS: PCP Family Medicine; Visit Provider Plastic Surgery
DX: M19.032 Primary osteoarthritis, left wrist (principal)
CPT/HCPCS: 73110

== ENCOUNTER 2023-03-08 12:31 | Outpatient (CLI) | payer OTHER, SELFPAY ==
[2023-03-08 19:52] LABS: Vitamin D 25 Hydroxy 38.8 ng/mL
[2023-03-08 19:58] LABS: Alanine Aminotransferase 22 U/L (6-35); Albumin Level 4.2 g/dL (3.5-5.1); Alkaline Phosphatase 55 U/L (38-126); Anion Gap 4 mmol/L (8-16); Aspartate Amino Transferase 39 U/L (14-36); Bilirubin,Total 0.4 mg/dL (0.2-1.3); Blood Urea Nitrogen 14 mg/dL (7-17); Calcium 9.7 mg/dL (8.4-10.2); Carbon Dioxide 33 mmol/L (22-30); Chloride 104 mmol/L (98-107); Estimated Glomerular Filt Rate > 60; Glucose 61 mg/dL (65-110); Potassium 3.9 mmol/L (3.4-5.0); Sodium 141 mmol/L (137-145)
== END 2023-03-08 12:32 | disposition home or self-care (01) ==
LOC: ANHGOSHLAB 12:33
PROVIDERS: PCP Family Medicine; Visit Provider Family Medicine
DX: E53.8 Deficiency of other specified B group vitamins (principal); E55.9 Vitamin D deficiency, unspecified
CPT/HCPCS: 36415; 80053; 82306; 82607

== ENCOUNTER 2023-03-28 12:22 | Outpatient (CLI) | payer OTHER, SELFPAY ==
--- NOTE | 2023-03-28 14:30 | NEURO_ITS ---
Impression: # Complains of numbness/tingling/pain in hands. # Normal Nerve Conduction Study # No Carpal Tunnel Syndrome or ulnar neuropathy. # Normal needle/EMG exam. Nerve Conduction Studies Anti Sensory Summary Table Stim Site NR Peak (ms) P-T Amp (?V) Site1 Site2 Delta-P (ms) Dist (cm) Chidi (m/s) Left Median Anti Sensory (2-3nd Digit) Wrist 3.1 45.3 Wrist 2-3nd Digit 3.1 14.0 45 Wrist 2.8 53.6 Wrist 2-3nd Digit 3.1 14.0 45 Right Median Anti Sensory (2-3nd Digit) Wrist 2.8 56.5 Wrist 2-3nd Digit 2.8 14.0 50 Wrist 2.8 68.5 Wrist 2-3nd Digit 2.8 14.0 50 Left Radial Anti Sensory (Base 1st Digit) Wrist 1.5 53.1 Wrist Base 1st Digit 1.5 0.0 Right Radial Anti Sensory (Base 1st Digit) Wrist 2.1 19.9 Wrist Base 1st Digit 2.1 0.0 Left Ulnar Anti Sensory (5th Digit) Wrist 2.5 54.4 Wrist 5th Digit 2.5 14.0 56 Right Ulnar Anti Sensory (5th Digit) Wrist 2.4 39.0 Wrist 5th Digit 2.4 14.0 58 Motor Summary Table Stim Site NR Onset (ms) O-P Amp (mV) Site1 Site2 Delta-0 (ms) Dist (cm) Chidi (m/s) Left Median Motor (Abd Poll Brev) Wrist 2.8 7.0 Elbow Wrist 4.7 30.0 64 Elbow 7.5 7.8 Right Median Motor (Abd Poll Brev) Wrist 2.7 9.4 Elbow Wrist 4.5 26.0 58 Elbow 7.2 7.3 Left Ulnar Motor (Abd Dig Minimi) Wrist 2.2 7.3 A Elbow Wrist 4.7 29.0 62 A Elbow 6.9 7.1 Right Ulnar Motor (Abd Dig Minimi) Wrist 2.3 7.8 A Elbow Wrist 4.7 30.0 64 A Elbow 7.0 6.9 F Wave Studies NR F-Lat (ms) L-R F-Lat (ms) Left Median (Mrkrs) (Abd Poll Brev) 24.05 0.86 Right Median (Mrkrs) (Abd Poll Brev) 24.91 0.86 Left Ulnar (Mrkrs) (Abd Dig Min) 24.02 0.53 Right Ulnar (Mrkrs) (Abd Dig Min) 24.55 0.53 EMG Side Muscle Nerve Root Ins Act Fibs Amp Dur Recrt Comment Right 1stDorInt Ulnar C8-T1 Nml Nml Nml Nml Nml Right Ext Indicis Radial (Post Int) C7-8 Nml Nml Nml Nml Nml Right Ext Digitorum Radial (Post Int) C7-8 Nml Nml Nml Nml Nml Right BrachioRad Radial C5-6 Nml Nml Nml Nml Nml Right PronatorTeres Median C6-7 Nml Nml Nml Nml Nml Right Abd Poll Brev Median C8-T1 Nml Nml Nml Nml Nml Left 1stDorInt Ulnar C8-T1 Nml Nml Nml Nml Nml Left Ext Indicis Radial (Post Int) C7-8 Nml Nml Nml Nml Nml Left Ext Digitorum Radial (Post Int) C7-8 Nml Nml Nml Nml Nml Left BrachioRad Radial C5-6 Nml Nml Nml Nml Nml Left PronatorTeres Median C6-7 Nml Nml Nml Nml Nml Left Abd Poll Brev Median C8-T1 Nml Nml Nml Nml Nml MTDD
== END 2023-03-28 12:23 | disposition home or self-care (01) ==
LOC: ANHNEURO 12:23
PROVIDERS: PCP Family Medicine; Visit Provider Plastic Surgery
DX: R20.2 Paresthesia of skin (principal)
CPT/HCPCS: 95886; 95911

== ENCOUNTER 2023-05-22 13:42 | Outpatient (CLI) | payer OTHER, SELFPAY ==
--- NOTE | ~2023-05-22 | MR_ITS ---
EXAMINATION: MR lumbar spine wo con DATE: 05/22/2023 15:16 INDICATION: Lumbar spondylosis. TECHNIQUE: Magnetic resonance imaging (MRI) of the lumbar spine was performed without intravenous con trast. Sequences included sagittal T2-weighted FSE, sagittal T2-weighted FS FSE, sagittal T1-weighted FSE, and axial T2-weighted FSE. COMPARISON: Lumbar spine MRI 06/14/2021 FINDINGS: There is 23 degrees levoscoliosis of lumbar spine. There is 3 mm retrolisthesis of L1 on L2 and 3 mm anterolisthesis of L5 on S1. Vertebral body heights are normal. There is severely decreased disc at L1-L2, moderately decreased disc height at L2-L3, mildly decreased disc height at L3-L4 and L4-L5, and moderately decreased disc height at L5-S1. The distal spinal cord signal intensity is norm al. The conus medullaris is at L1. The following disc levels are specifically discussed: L1-L2: The disc is bulging. There is severe bilateral facet joint osteoarthritis. There is moderate r ight and mild left neural foraminal stenosis. There is mild central canal stenosis. L2-L3: The disc is bulging. There is mild bilateral facet joint osteoarthritis. There is mild bilater al neural foraminal stenosis. There is mild central canal stenosis. L3-L4: The disc is bulging. There is severe right and moderate left facet joint osteoarthritis. There is mild bilateral neural foraminal stenosis. There is mild central canal stenosis. L4-L5: The disc is bulging. There is severe bilateral facet joint osteoarthritis. There is mild right and moderate left neural foraminal stenosis. There is mild central canal stenosis. L5-S1: The disc is bulging and has an annular fissure. There is severe bilateral facet joint osteoart hritis. There is mild bilateral neural foraminal stenosis. There is mild central canal stenosis. IMPRESSION: 1. Severe lumbar spondylosis, stable from 06/14/2021. 2. Lumbar levoscoliosis. Reviewed, dictated and finalized at location E. MANAGER
--- NOTE | ~2023-05-22 | MR_ITS ---
EXAMINATION: MR cervical spine wo con DATE: 05/22/2023 15:14 INDICATION: Cervical spondylosis. Neck pain. TECHNIQUE: Magnetic resonance imaging (MRI) of the cervical spine was performed without intravenous c ontrast. Sequences included sagittal T2-weighted FSE, sagittal T2-weighted FS FSE, sagittal T1-weight ed FSE, axial MERGE, and axial T2-weighted FSE. COMPARISON: Cervical spine MRI 06/14/2021 FINDINGS: Bone alignment is normal. Vertebral body heights are normal. There is interbody fusion at C 5-C6. There is mildly decreased disc height at C4-C5 and severely decreased disc height at C6-C7. The spinal cord signal intensity is normal. The following disc levels are specifically discussed: C2-C3: The disc does not extend beyond the endplate margin. There is mild right uncovertebral joint o steoarthritis. There is mild bilateral facet joint osteoarthritis. There is mild right neural foramin al stenosis. There is no central canal stenosis. C3-C4: There is a central extrusion. There is mild bilateral uncovertebral joint osteoarthritis. Ther e is moderate right and severe left facet joint osteoarthritis. There is mild left neural foraminal s tenosis. There is mild central canal stenosis. C4-C5: The disc is bulging. There is mild bilateral uncovertebral joint osteoarthritis. There is bruno re right and moderate left facet joint osteoarthritis. There is mild bilateral neural foraminal steno sis. There is mild central canal stenosis. C5-C6: There is mild bilateral uncovertebral joint hypertrophy. There is mild bilateral facet joint o steoarthritis. There is no neural foraminal stenosis. There is no central canal stenosis. C6-C7: The disc is bulging. There is severe bilateral uncovertebral joint osteoarthritis. There is se shabana bilateral facet joint osteoarthritis. There is moderate bilateral neural foraminal stenosis. The re is mild central canal stenosis. C7-T1: The disc does not extend beyond the endplate margin. There is no uncovertebral joint osteoarth ritis. There is mild right and severe left facet joint osteoarthritis. There is no neural foraminal s tenosis. There is no central canal stenosis. IMPRESSION: 1. Severe cervical spondylosis, stable from 06/14/21. 2. Anterior fusion at C5-C6. Reviewed, dictated and finalized at location E. CHUTE FOLDER
== END 2023-05-22 13:43 | disposition home or self-care (01) ==
PROVIDERS: PCP Family Medicine; Visit Provider Student in an Organized Health Care Education/Training Program
DX: M47.812 Spondylosis without myelopathy or radiculopathy, cervical region (principal); M47.816 Spondylosis without myelopathy or radiculopathy, lumbar region; Z98.1 Arthrodesis status
CPT/HCPCS: 72141; 72148

== ENCOUNTER 2023-07-28 09:27 | Outpatient (CLI) | payer OTHER, SELFPAY ==
--- NOTE | ~2023-07-28 | NM_ITS ---
EXAMINATION: NM padmaja stress w perfusion DATE: 07/28/2023 12:03 INDICATION: Chest pain TECHNIQUE: Rest images were obtained following intravenous administration of 10.7 mCi Tc99m tetrofosm in (Myoview). The patient was infused intravenously with Lexiscan (Regadenoson). Then, 33 mCi Tc99m t etrofosmin (Myoview) was administered intravenously, and stress images were obtained. Data was recons tructed into short axis and horizontal and vertical long axis SPECT images. Gated SPECT images were a lso obtained. COMPARISON: None. FINDINGS: There is no definite reversible or fixed perfusion abnormality to suggest ischemia or infar ction. There is normal left ventricular chamber size, wall motion and ejection fraction. Left ventr icular ejection fraction measures >70%. IMPRESSION: 1. Normal myocardial perfusion at rest and during stress. 2. Left ventricular ejection fraction measuring >70%. Reviewed, dictated and finalized at location A.
--- NOTE | 2023-07-28 09:48 | EST_ITS ---
Patient Info Name: Sarah Quintana Age: 62 years : 1960 Gender: Female Ht: 64 in Wt: 142 lbs BSA: 1.72 m2 HR: 53 bpm BP: 111 / 73 mmHg Exam Date: 07/28/2023 10:59 AM Exam Location: [facility] Patient Status: Outpatient Admit Date: 07/28/2023 Staff Ordering Physician: Krishna Marino DO Attending Provider: Krishna Marino DO Exercise Technologist: Emilee Mendez RDCS Exercise Physician: Krishna Marino DO Exam Type: CA stress padmaja w NM Study Info A regadenoson stress test was performed. Summary 1. 1. Negative lexiscan stress test for ischemic ST changes by ECG criteria. 2. 2. Stable hemodynamics throughout the test. 3. 3. Nuclear scan to follow and will be reported separately. Please correlate with it. 4. 4. Patient informed of the above results. Protocol: Lexiscan Stress ECG Details Stage: REST Duration (min): 1 min : 2 sec HR (bpm): 56 SBP (mmHg): 111 DBP (mmHg): 73 Stage: REST Duration (min): 6 min : 17 sec HR (bpm): 56 SBP (mmHg): 111 DBP (mmHg): 73 Stage: STAGE 1 Duration (min): 1 min : 0 sec HR (bpm): 86 SBP (mmHg): 114 DBP (mmHg): 73 Stage: RECOVERY Duration (min): 1 min : 0 sec HR (bpm): 90 SBP (mmHg): 114 DBP (mmHg): 73 Stage: RECOVERY Duration (min): 2 min : 0 sec HR (bpm): 81 SBP (mmHg): 114 DBP (mmHg): 73 Stage: RECOVERY Duration (min): 2 min : 54 sec HR (bpm): 79 SBP (mmHg): 102 DBP (mmHg): 71 Rest HR: 56 bpm Peak HR: 98 bpm Rest Sys BP: 111 mmHg Peak Sys BP: 114 mmHg Max Pred HR: 159 bpm % Max Pred HR: 62 % Target HR: 135 bpm Max RPP: 11,172 bpm*mmHg Termination Reason: Completed protocol Cardiac Symptoms: Shortness of breath Total Time: 1 min : 0 sec Rest Torrez BP: 73 mmHg Peak Torrez BP: 73 mmHg Total Dose: 0.4 mg Resting ECG Sinus bradycardia. Stress ECG No ST changes. Arrhythmias None. Report Signatures
== END 2023-07-28 09:28 | disposition home or self-care (01) ==
LOC: ANHCARD 09:29
PROVIDERS: PCP Family Medicine; Visit Provider Internal Medicine Cardiovascular Disease
DX: R07.9 Chest pain, unspecified (principal)
CPT/HCPCS: 78452; 93017; A9502; J2785

== ENCOUNTER 2023-09-26 09:49 | Outpatient (CLI) | payer OTHER, SELFPAY ==
--- NOTE | 2023-09-26 11:30 | NEURO_ITS ---
Impression: # Complains of paresthesia of upper extremities. # Normal Nerve Conduction Study. # No Carpal Tunnel Syndrome or ulnar neuropathy. # Normal needle/EMG exam. #Clinical correlation recommended. Nerve Conduction Studies Anti Sensory Summary Table Stim Site NR Peak (ms) P-T Amp (?V) Site1 Site2 Delta-P (ms) Dist (cm) Chidi (m/s) Left Median Anti Sensory (2-3nd Digit) Wrist 3.0 51.5 Wrist 2-3nd Digit 3.0 14.0 47 Wrist 3.1 57.1 Wrist 2-3nd Digit 3.0 14.0 47 Right Median Anti Sensory (2-3nd Digit) Wrist 2.8 53.4 Wrist 2-3nd Digit 2.8 14.0 50 Wrist 2.8 65.9 Wrist 2-3nd Digit 2.8 14.0 50 Left Radial Anti Sensory (Base 1st Digit) Wrist 2.0 42.1 Wrist Base 1st Digit 2.0 0.0 Right Radial Anti Sensory (Base 1st Digit) Wrist 2.3 16.5 Wrist Base 1st Digit 2.3 0.0 Left Ulnar Anti Sensory (5th Digit) Wrist 2.8 42.7 Wrist 5th Digit 2.8 14.0 50 Right Ulnar Anti Sensory (5th Digit) Wrist 2.8 22.0 Wrist 5th Digit 2.8 14.0 50 Motor Summary Table Stim Site NR Onset (ms) O-P Amp (mV) Site1 Site2 Delta-0 (ms) Dist (cm) Chidi (m/s) Left Median Motor (Abd Poll Brev) Wrist 3.0 7.5 Elbow Wrist 5.3 32.0 60 Elbow 8.3 7.5 Right Median Motor (Abd Poll Brev) Wrist 3.0 7.7 Elbow Wrist 4.3 27.0 63 Elbow 7.3 5.4 Left Ulnar Motor (Abd Dig Minimi) Wrist 2.3 7.0 A Elbow Wrist 4.9 30.0 61 A Elbow 7.2 6.9 Right Ulnar Motor (Abd Dig Minimi) Wrist 2.4 8.3 A Elbow Wrist 4.6 28.0 61 A Elbow 7.0 7.5 F Wave Studies NR F-Lat (ms) L-R F-Lat (ms) Left Median (Mrkrs) (Abd Poll Brev) 26.23 0.02 Right Median (Mrkrs) (Abd Poll Brev) 26.25 0.02 Left Ulnar (Mrkrs) (Abd Dig Min) 26.43 0.29 Right Ulnar (Mrkrs) (Abd Dig Min) 26.72 0.29 EMG Side Muscle Nerve Root Ins Act Fibs Amp Dur Recrt Comment Right 1stDorInt Ulnar C8-T1 Nml Nml Nml Nml Nml Right Ext Indicis Radial (Post Int) C7-8 Nml Nml Nml Nml Nml Right Ext Digitorum Radial (Post Int) C7-8 Nml Nml Nml Nml Nml Right BrachioRad Radial C5-6 Nml Nml Nml Nml Nml Right PronatorTeres Median C6-7 Nml Nml Nml Nml Nml Right Abd Poll Brev Median C8-T1 Nml Nml Nml Nml Nml Right ABD Dig Min Ulnar C8-T1 Nml Nml Nml Nml Nml Left 1stDorInt Ulnar C8-T1 Nml Nml Nml Nml Nml Left Ext Indicis Radial (Post Int) C7-8 Nml Nml Nml Nml Nml Left Ext Digitorum Radial (Post Int) C7-8 Nml Nml Nml Nml Nml Left BrachioRad Radial C5-6 Nml Nml Nml Nml Nml Left PronatorTeres Median C6-7 Nml Nml Nml Nml Nml Left Abd Poll Brev Median C8-T1 Nml Nml Nml Nml Nml Left ABD Dig Min Ulnar C8-T1 Nml Nml Nml Nml Nml Right Biceps Musculocut C5-6 Nml Nml Nml Nml Nml Right Triceps Radial C6-7-8 Nml Nml Nml Nml Nml Right Deltoid Axillary C5-6 Nml Nml Nml Nml Nml Left Biceps Musculocut C5-6 Nml Nml Nml Nml Nml Left Triceps Radial C6-7-8 Nml Nml Nml Nml Nml Left Deltoid Axillary C5-6 Nml Nml Nml Nml Nml MTDD
== END 2023-09-26 09:50 | disposition home or self-care (01) ==
LOC: ANHNEURO 09:51
PROVIDERS: PCP Family Medicine; Visit Provider Neurological Surgery
DX: R20.2 Paresthesia of skin (principal)
CPT/HCPCS: 95886; 95911

== ENCOUNTER 2023-09-27 10:59 | Emergency (ER) | payer OTHER, SELFPAY ==
--- NOTE | ~2023-09-27 | XR_ITS ---
XR chest 2V Ordering provider: Rosalind Odom APRN History: 62 years Female with . cough 2 weeks . Comparison: January 12, 2018 FINDINGS: MEDIASTINUM: The cardiac silhouette is not enlarged. LUNGS: No infiltrates, effusions or pneumothorax. OTHER: No free air under the diaphragm. Dextroscoliosis. Degenerative spine. IMPRESSION: No acute cardiopulmonary pathology. Reviewed, dictated and finalized at location A.
[2023-09-27 11:11] VITALS: BP 111/69; PULSE 75; RESP 16; TEMP 36.1
--- NOTE | 2023-09-27 11:11 | ED.URI ---
HPI - URI/Sore Throat General Chief Complaint: Upper Respiratory Infection Stated Complaint: L EARACHE/COUGH/SORE THROAT/RUNNY NOSE/JOHNSON Source: patient and RN notes reviewed Mode of arrival: ambulatory Limitations: no limitations History of Present Illness HPI Narrative: 62 y/o female presented for c/o left ear pain, 'terrible cough,' sore throat, post nasal drainage, neck pain (chronic), headache. Onset 2 weeks. State she was working with physical therapy for the neck pain, but had to stop due to the coughing. Cough is worse at night, causing loss of sleep. Endorses burning in chest with cough. Denies sob, wheezing, n/v/d/f/c. Pt provided list of concerns, stating she might have a coughing fit if she talks too much. Taking Flonase and tessalon perles. MD elicited complaint: cough Related Data Home Medications Medication Instructions Recorded Confirmed loratadine 10 mg tablet (Claritin) 10 mg PO DAILY 07/02/20 09/27/23 famotidine 40 mg tablet 40 mg PO DAILY 11/24/22 09/27/23 gabapentin 100 mg capsule 100 mg PO DAILY 08/22/23 09/27/23 Allergies Allergy/AdvReac Type Severity Reaction Status Date / Time progesterone Allergy Unknown shortness Verified 09/27/23 11:23 of breath alendronate sodium AdvReac Mild Itching Verified 09/27/23 11:23 prednisolone AdvReac Mild Anxiety Verified 09/27/23 11:23 Review of Systems Review of Systems: CONSTITUTIONAL: denies malaise, chills, sweats, fever EYES: Denies visual changes, redness, or discharge ENT: Reports rhinorrhea, otalgia, sore throat CARDIOVASCULAR: Denies chest pain, palpitations, edema RESPIRATORY: Reports cough, post nasal drainage. Denies dyspnea GASTROINTESTINAL: Denies abdominal pain, nausea, vomiting, diarrhea SKIN: Denies rash or itching MUSCULOSKELETAL: denies myalgia, reports neck pain NEUROLOGIC: reports headache PMFSH Past Medical History Medical History Adenomatous colon polyp Bloating Chronic hip pain, bilateral Chronic neck and back pain Fibromyalgia Mixed hyperlipidemia Osteoporosis Pelvic congestion syndrome Primary osteoarthritis, unspecified site Suprapubic discomfort Surgical History Surgical History History of cervical spinal surgery 2003 Family History Family History Father Hypertension Cerebrovascular accident Other Family history of coronary artery disease Family history of elevated blood lipids Social History Social History Social History: Caffeine- daily Smoking packs per day: 0 Smoking cigarettes per day: 0.0 Years smoked: 0 Smoking pack-years: 0.00 Smoking status: Never smoker Second hand tobacco smoke exposure: No Alcohol intake: never Substance use: never Substance use type: does not use Do You Feel Safe in your Home?: Yes Lack of Transportation: No Lack of Food: Sometimes True Current Housing: I Have Housing Concerned About Future Housing: Decline to Answer Difficulty Paying Gas/Electric Bills: No Difficulty Paying for Meds: Decline to Answer Currently Unemployed: Decline to Answer Education: Decline to Answer Difficulty w/ Childcare or Family Care: No Living arrangements: with family Gender identity (if verbalized by the patient): Female Spiritual care concerns: No Exam Narrative: GENERAL: well-appearing, no acute distress. EYES: PERRLA, conjunctivae clear ENT: Mucous membranes moist. TMs pearly june with normal light reflex bilaterally; no tragal tenderness. Oropharynx not erythematous without lesions or exudate, no drooling, no hoarseness, no trismus, uvula midline. No tripod positioning, muffled voice, soft palate or pharyngeal wall bulging NECK: Supple. No lymphadenopathy CHEST: Clear to auscultation, breath sounds equal. No wheezing, rh
== END 2023-09-27 12:10 | disposition home or self-care (01) ==
PROVIDERS: Emergency Provider Nurse Practitioner Family; PCP Family Medicine
DX: J40 Bronchitis, not specified as acute or chronic (principal); M79.7 Fibromyalgia; E78.2 Mixed hyperlipidemia; M81.0 Age-related osteoporosis without current pathological fracture; M19.90 Unspecified osteoarthritis, unspecified site
CPT/HCPCS: 71046; 99213; G0463

== ENCOUNTER 2023-10-18 12:30 | Outpatient (RCR) | payer OTHER, SELFPAY ==
--- NOTE | 2023-09-07 13:49 | PTOPEVAL1 ---
Assessment and note entered by Montrell Willson Evaluation Information Assessment Status Evaluation Diagnosis cervical spondylosis, neck pain Onset 09/07/23 Subjective Information Pt. reports that she has had neck pain for years. She has hx of undergoing cervical fusion. She describes pain in the area of the occipitals and along the cervical paraspinals. She states that she experiences daily headaches due to neck pain. she reports positioning herself to sleep is difficult due to neck pain. She states that she also gets a sensation that her throat is closing on occasion. She reports that her pain is increased with daily activities such as shopping and lifting small bags will increase her neck pain . She reports that several years ago she underwent PT for her neck. She states that she takes pain medication daily consisting of mm. relaxors, Gabapentin, and Lyrica. She reports that she has difficulty with dressing due to constant pain in her neck. She states that her goal for therapy is to decrease her neck pain. Reported Pain Level Pain Score 6: Self Report Assessment PT Clinical Summary Pt. is a 62 year old female who enters the clinic due to neck pain from severe cervical spondylosis at multiple levels. She presents with bilateral u .e. weakness, impaired postural awareness, impaired c-spine ROM and pain on this date. Continued skilled PT is indicated in order to improve these areas to allow the pt. to be able to improve ability to complete all IADL's with improved comfort and efficiency. Plan of Care Interventions Electrical Stimulation,Hot Pack/Cold Pack,Manual Therapy,Neuro Re-education,Patient/Caregiver Educati,Therapeutic Activities,Therapeutic Exercise PT Services Indicated Yes Treatment Frequency and 2x/week x 10 visits Duration These treatments will address the objective and functional deficits as defined above. The patient will be advanced safely and appropriately in order for the patient to progress towards his/her prior level of function. Additional exercises will be introduced and as well as a comprehensive home exercise program upon discharge, if needed, ?to ensure carryover of functional gains achieved in the clinic. This treatment plan has been reviewed and agreement upon by the patient.
--- NOTE | 2023-09-07 13:49 | OPREHPOC ---
Outpatient Therapy Plan of Care This is a Multidisciplinary Plan of Care that may contain components documented by all disciplines (PT, OT, and ST.) PT Problem 1 PT Problem #1 Knowledge Deficit PT Goal 1 Goal Pt. will be independent with a HEP addressing cervical mobility and postural awareness. Target Visit 2 PT Problem 2 PT Problem #2 Pain PT Goal 1 Goal Pt. will report reduction in pain levels to 5/10 at worst. Target Visit 10 PT Problem 3 PT Problem #3 Impaired Range of Motion PT Goal 1 Goal Pt. will demonstrate 75 degrees of active bilateral c-spine rotation in order to improve her visual field. PT Problem 4 PT Problem #4 Impaired Strength PT Goal 1 Goal Pt. will present with proximal u.e. strength at 4+ /5 or greater on both right and left to assist with improved ability to complete tasks such as lifting groceries. Target Visit 10 PT Problem 5 PT Problem #5 Impaired Functional Mobil PT Goal 1 Goal Pt. will present with less than 40% limitation on the NDI indicating significant overall functional improvement.
--- NOTE | 2023-09-27 10:06 | PCPTNOTE ---
Cancelled secondary to conflicting appointment.
--- NOTE | 2023-10-25 13:35 | PCPTNOTE ---
Pt called at 13:34, states her medical transport did not show up to brign her to therapy. Attempted to get another transport but was unable. Cancelled today's appt
--- NOTE | 2023-10-27 10:14 | PCPTNOTE ---
Patient Cancelled progress note secondary to in the family.
--- NOTE | 2023-11-24 13:14 | PCPTNOTE ---
Patient was a No Show for today's Progress note. Did not have a ride to therapy.
== END 2023-12-06 23:59 | disposition home or self-care (01) ==
LOC: ANHGOSHPT 12:30
PROVIDERS: PCP Family Medicine; Visit Provider Nurse Practitioner
DX: M47.812 Spondylosis without myelopathy or radiculopathy, cervical region (principal)
CPT/HCPCS: 97014; 97110; 97140; 97161; 97530; G0283

== ENCOUNTER 2023-12-08 11:15 | Outpatient (RCR) | payer OTHER, SELFPAY ==
--- NOTE | 2023-12-08 12:57 | PTOPDC ---
Assessment and note entered by Tod Morrow, PT Evaluation Information Assessment Status Discharge Diagnosis cervical spondylosis, neck pain Onset 09/07/23 Subjective Information Reports that some of her exercises have agitated her low back. She has had a lot of difficulty getting to therapy due to transportation issues. States that majority of band exercises for her shoulder have helped and don't make her sore but everything else seems to. Reported Pain Level Pain Score Moderate Pain: Berkowitz Holguin Assessment PT Clinical Summary Patient has had a lot of difficulty with arrival and attendance in therapy to this point. During sessions, decreased tolerance noted to manual intervention and direct spinal exercise. Exercise shifted to postural stabilization and shoulder strengthening with mixed results. Patient at this point is independent with periscapular strengthening for cervical posture training and will continue to work towards decreased postural strain through independent strengthening. Will be discharged to [facility] at this time. Plan of Care PT Services Indicated D/C to [facility]
== END 2023-12-14 10:39 | disposition home or self-care (01) ==
LOC: ANHGOSHPT 11:15
PROVIDERS: PCP Family Medicine; Visit Provider Nurse Practitioner
DX: M47.812 Spondylosis without myelopathy or radiculopathy, cervical region (principal)
CPT/HCPCS: 97110; 97140

== ENCOUNTER 2024-05-28 13:15 | Outpatient (RCR) | payer MEDICAID, OTHER, SELFPAY ==
--- NOTE | 2024-03-07 14:39 | PTOPEVAL1 ---
Assessment and note entered by Neal Donald, PT, DPT Evaluation Information Assessment Status Evaluation Subjective Information Pt states she is having sciatica, states it starts when the weather get cold. States her whole entire back hurts. Pt uses a walking stick when out in the community. She reports pain in the back of her buttocks into the back of her R leg. States the pain will made her nauseous. States the pain is the worse in the morning, she is very stiff, get progressively better throughout the day . Pt states she uses an electric scooter around stores, and pushes a wheelchair or wheels in a wheelchair when walking in her neighborhood. Pt lays on mat table as soon as evaluation starts. Reported Pain Level Pain Score 7: Self Report Assessment PT Clinical Summary Pt presents to therapy today for her initial evaluation with a diagnosis of low back pain. Today she demonstrates tenderness to palpation with severe activity restriction d/t reports of weakness, pain, and uncontrollable movements. Pt demonstrates jignesh LE weakness and it reportedly unable to hold testing positions. She ambulates with significant deviations, an antalgic pattern, and a significant decrease in gait speed, all placing her at an increased risk for falls. Skilled therapy services are indicated to address the deficits noted above, to manage pain, and to return to prior level of function. Plan of Care Interventions Electrical Stimulation,Gait Training,Hot Pack/Cold Pack,Manual Therapy,Neuro Re-education,Patient/ Caregiver Education,Therapeutic Activities, Therapeutic Exercise PT Services Indicated Yes Treatment Frequency and 2x/wk for 8 visits Duration These treatments will address the objective and functional deficits as defined above. The patient will be advanced safely and appropriately in order for the patient to progress towards his/her prior level of function. Additional exercises will be introduced and as well as a comprehensive home exercise program upon discharge, if needed, ?to ensure carryover of functional gains achieved in the clinic. This treatment plan has been reviewed and agreement upon by the patient.
--- NOTE | 2024-03-07 14:39 | OPREHPOC ---
Outpatient Therapy Plan of Care This is a Multidisciplinary Plan of Care that may contain components documented by all disciplines (PT, OT, and ST.) PT Problem 1 PT Problem #1 Knowledge Deficit PT Goal 1 Goal / Goal Update Pt to be IND with issued HEP Target Visit 8 PT Problem 2 PT Problem #2 Pain PT Goal 1 Goal / Goal Update 1. Pt to report back pain no greater than 4/10 in the last week PT Problem 3 PT Problem #3 Impaired Gait PT Goal 1 Goal / Goal Update 1. Pt to improve 2 min walk distance from 140ft to 250ft 2. Pt to demonstrate an equal stride length during ambulation PT Problem 4 PT Problem #4 Impaired Functional Mobility PT Goal 1 Goal / Goal Update 1. Pt to demonstrate a functional lift and carry of 10lb from ground level 2. Pt to improve hip flexion strength to 4+/5. Target Visit 10
--- NOTE | 2024-04-23 15:17 | OTOPEVAL1 ---
Assessment and note entered by Feng Haley, SAEID/Ike, CHT OT Evaluation Information 04/23/24 Assessment Status Evaluation Diagnosis Pain in left hand ICD-10 Condition Codes (OT) Pain in left hand M79.642 Subjective Information Patient has been experiencing pain in her left hand for years . She saw Dr. 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 He gave her injections to the 1st CMC joint, which provided relief, however the pain always returned. EMG has ruled out carpal tunnel syndrome. Patient reports she uses her hands a lot and has high amounts of thumb pain by the end of the day. She reports pain with cooking and dishes. She also hand washes her laundry and this is painful. Reported Pain Level Pain Score 5: Self Report Assessment OT Clinical Summary Patient referred to OT with left hand pain. 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 Today a hand based thumb spica orthosis was fabricated for the left thumb. She was instructed on active ROM exercises for the thumb as well. Continued follow up indicated for HEP progression, joint protection education, and progression of therapeutic exercise to improve functional strength of the left hand. Plan of Care Interventions Therapeutic Exercise,Manual Therapy,Neuro Re- education,Therapeutic Activities,Check Out for Orthotic/Prosthetic,Ultrasound,Paraffin OT Services Indicated Yes Treatment Frequency and 1-2x/week for 6 visits Duration These treatments will address the objective and functional deficits as defined above. The patient will be advanced safely and appropriately in order for the patient to progress towards his/her prior level of function. Additional exercises will be introduced and as well as a comprehensive home exercise program upon discharge, if needed, ?to ensure carryover of functional gains achieved in the clinic. This treatment plan has been reviewed and agreement upon by the patient.
--- NOTE | 2024-04-23 15:18 | OPREHPOC ---
Outpatient Therapy Plan of Care This is a Multidisciplinary Plan of Care that may contain components documented by all disciplines (PT, OT, and ST.) PT Problem 1 PT Problem #1 Knowledge Deficit PT Goal 1 Goal / Goal Update Pt to be IND with issued HEP Target Visit 8 PT Problem 2 PT Problem #2 Pain PT Goal 1 Goal / Goal Update 1. Pt to report back pain no greater than 4/10 in the last week PT Problem 3 PT Problem #3 Impaired Gait PT Goal 1 Goal / Goal Update 1. Pt to improve 2 min walk distance from 140ft to 250ft 2. Pt to demonstrate an equal stride length during ambulation PT Problem 4 PT Problem #4 Impaired Functional Mobility PT Goal 1 Goal / Goal Update 1. Pt to demonstrate a functional lift and carry of 10lb from ground level 2. Pt to improve hip flexion strength to 4+/5. Target Visit 10 OT Problem 1 OT Problem #1 Knowledge Deficit OT Goal 1 Goal / Goal Update Patient to be independent with instructed materials and splint wearing schedule. Target Visit 6 OT Problem 2 OT Problem #2 Pain OT Goal 1 Goal / Goal Update Patient to report reduced left thumb pain to less than 5/10 at worst . Target Visit 6 OT Problem 3 OT Problem #3 Impaired Strength OT Goal 1 Goal / Goal Update Patient to be able to progress functional strengthening of the left hand for ADLs: - Pt to be able to tolerate left job counselor/pinch strengthening with patterson putty x5 minutes without pain. Target Visit 6
--- NOTE | 2024-05-15 10:01 | PTOPDC ---
Assessment and note entered by Neal Donald, PT, DPT Evaluation Information Assessment Status Discharge - Pt Not Present Subjective Information Followed up with pt, states she does not want to continue with therapy services at this time. Assessment PT Clinical Summary Pt was evaluated on 03/07/24 and did not complete any follow up appointments. Will be discharged at this time per her request.
--- NOTE | 2024-05-28 14:09 | OTOPPROG ---
Assessment and note entered by Feng Haley, SAEID/Ike, CHT OT Progress Update 05/28/24 Diagnosis Pain in left hand ICD-10 Condition Codes (OT) Pain in left hand M79.642 Subjective Information Patient reports progress in the left hand/thumb since starting therapy. She reports improvements with her mobility/flexibility. She has been compliant with wearing her thumb spica brace with hand use and she reports it's helpful to support her thumb. She reports she is no longer having aching pain when she lays down at night. She reports improvements with being able to do the dishes and cooking. Patient reports her pain does get to 0/10 at times now. Reporting 6/10 at worst , which as improved from 9/10. Assessment OT Clinical Summary Patient referred to OT with left hand pain. 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 She has been utilizing a custom thumb spica orthotic for support and to help rest the CMC. Thumb mechanics and joint protection techniques have been reviewed. She has been working on ROM and strengthening HEP. She is making progress with reduced pain and improved functional use. She continues to have moderate amounts of pain on a daily basis, however. Continued skilled OT indicated for HEP progression , joint protection education, and progression of therapeutic exercise to improve functional strength of the left hand. Plan of Care Interventions Therapeutic Exercise,Manual Therapy,Neuro Re- education,Therapeutic Activities,Check Out for Orthotic/Prosthetic,Ultrasound,Paraffin OT Services Indicated Yes Treatment Frequency and 1-2x/week for 6 visits Duration These treatments will address the objective and functional deficits as defined above. The patient will be advanced safely and appropriately in order for the patient to progress towards his/her prior level of function. Additional exercises will be introduced and as well as a comprehensive home exercise program upon discharge, if needed, ?to ensure carryover of functional gains achieved in the clinic. This treatment plan has been reviewed and agreement upon by the patient.
--- NOTE | 2024-05-28 14:10 | OPREHPOC ---
Outpatient Therapy Plan of Care This is a Multidisciplinary Plan of Care that may contain components documented by all disciplines (PT, OT, and ST.) PT Problem 1 PT Problem #1 Knowledge Deficit PT Goal 1 Goal / Goal Update Pt to be IND with issued HEP Target Visit 8 PT Problem 2 PT Problem #2 Pain PT Goal 1 Goal / Goal Update 1. Pt to report back pain no greater than 4/10 in the last week PT Problem 3 PT Problem #3 Impaired Gait PT Goal 1 Goal / Goal Update 1. Pt to improve 2 min walk distance from 140ft to 250ft 2. Pt to demonstrate an equal stride length during ambulation PT Problem 4 PT Problem #4 Impaired Functional Mobility PT Goal 1 Goal / Goal Update 1. Pt to demonstrate a functional lift and carry of 10lb from ground level 2. Pt to improve hip flexion strength to 4+/5. Target Visit 10 OT Problem 1 OT Problem #1 Knowledge Deficit OT Goal 1 Goal / Goal Update Patient to be independent with instructed materials and splint wearing schedule. ---OT POC UPDATE 05/28/24--- Met Target Visit 6 Progress Met OT Problem 2 OT Problem #2 Pain OT Goal 1 Goal / Goal Update Patient to report reduced left thumb pain to less than 5/10 at worst . ---OT POC UPDATE 05/28/24--- progressing, reports 6/10, continue to treat pain Target Visit 12 OT Problem 3 OT Problem #3 Impaired Strength OT Goal 1 Goal / Goal Update Patient to be able to progress functional strengthening of the left hand for ADLs: - Pt to be able to tolerate left metal furniture panel coverer/pinch strengthening with patterson putty x5 minutes without pain. ---OT POC UPDATE 05/28/24--- Progressing, never has no pain; today with yellow putty she had 3/10 pain afterwards Target Visit 12
--- NOTE | 2024-06-06 13:41 | PCOTNOTE ---
This treatment is being continued on visit number [id number]. Please see documentation on both accounts to view progress. Completed interventions, outcomes, and problems have been marked as Inactive to facilitate the copying of the Care plan routine for recurring accounts.
== END 2024-06-05 23:59 | disposition home or self-care (01) ==
LOC: ANHGOSHOT 13:15
PROVIDERS: PCP Family Medicine; Visit Provider Family Medicine
DX: M54.2 Cervicalgia (principal); M54.9 Dorsalgia, unspecified; G89.29 Other chronic pain
CPT/HCPCS: 97018; 97110; 97140; 97161; 97165; L3913

== ENCOUNTER 2024-07-09 13:45 | Outpatient (RCR) | payer OTHER, SELFPAY ==
--- NOTE | 2024-06-06 13:39 | PCOTNOTE ---
The treatment documented on this account is a continuation of the treatment documented on visit number [id number]. Please see documentation on both accounts to view progress. The Plan of Care has been transitioned and updated within the new V#. I have addressed and agree with the discipline specific Problems, Interventions, and Goals for the current certification period. Completed interventions, outcomes, and problems have been marked as Inactive to facilitate the copying of the Care plan routine for recurring accounts.
--- NOTE | 2024-07-09 14:45 | OTOPDC ---
Assessment and note entered by Feng Haley, OTR/Ike, CHRIS OT D/C 07/09/24 Assessment Status Discharge Diagnosis Pain in left hand ICD-10 Condition Codes (OT) Pain in left hand M79.642 Subjective Information Patient reports progress in the left hand/thumb since starting therapy. She reports improvements with her flexibility and strength. She has been compliant with wearing her thumb spica brace with hand use and she reports it's helpful to support her thumb. She reports she is no longer having aching pain when she lays down at night that keeps her up. She reports she feels stronger when using her hand while cooking and doing the dishes. Patient reports her pain does get to 0/10 at times now. Reporting 4/10 at worst , which as improved from 9/10. Reported Pain Level Pain Score 2: Self Report Assessment OT Clinical Summary Patient referred to OT with left hand pain. 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 She has been utilizing a custom thumb spica orthotic for support and to help rest the CMC. Thumb mechanics and joint protection techniques have been reviewed. She has been working on ROM and strengthening HEP. She is making progress with reduced pain and improved functional use. Her pain has reduced to 2/10 on a regular basis with times of 0-1/10 pain. At this time OT is discharging with patient independent with all materials. Plan of Care OT Services Indicated No
== END 2024-07-09 15:47 | disposition home or self-care (01) ==
LOC: ANHGOSHOT 13:45
PROVIDERS: PCP Family Medicine; Visit Provider Family Medicine
DX: M54.2 Cervicalgia (principal); M54.9 Dorsalgia, unspecified; M79.642 Pain in left hand; G89.29 Other chronic pain
CPT/HCPCS: 97018; 97035; 97110

== ENCOUNTER 2024-08-14 16:15 | Emergency (ER) | payer OTHER, SELFPAY ==
--- OUTSIDE RECORDS SUMMARY | 2024-08-14 16:18 | XMS_ITS | Clinical Summary ---
Author Organization [facility] Address [address] [place] [address] Care Team Providers Care Stripper [employer] Boards Name Role Phone Tequila Rodriguez MD Primary Care Provider Source Comments [facility],non-owned Affiliates and Associated Physician Practices is amultiple site organization consisting of ambulatory clinics and hospital sitesin [place], [place], [place] and [place]. This disclosure is being madepursuant to the Care Everywhere program and may not contain all information available regarding this patient. Last updated 17.[facility] [employer] Allergies Active Allergy Reactions Criticality Noted Date Comments Atorvastatin Myalgias Low 01/15/2018 Progesterone 02/14/2011 Medications * Be aware that medications may not be up to date on this document. Alwaysverify current medications with the patient. diclofenac sodium (VOLTAREN) 75 MG tablet Take 1 Tab by mouth 2 times daily. 60 Tab 4 2 Active pregabalin (LYRICA) 50 MG capsule Take 1 (one) capsule by mouth Active Nerve Stimulator (TENS THERAPY PAIN RELIEF) DEVIIndications:Fib romyalgia,Degenerat ion of lumbar or lumbosacral intervertebral disc Use 1 device once daily 1 device 1 8 Active Ascorbic Acid (VITAMIN C CR) 1000 MG Take 1,000 mg by mouth once daily Active BLACK COHOSH EXTRACT PO Take by mouth once daily Active gabapentin (NEURONTIN) 100 MG capsule TAKE 1 OR 2 CAPSULES BY MOUTH DAILY DIRECTED 60 capsule 3 9 Active fenofibrate (TRICOR) 145 MG tablet Take 1 (one) tablet by mouth once daily 9 Active vitamin D, ergocalciferol, (DRISDOL) 1.25 MG (47192 UT) capsule TAKE 1 CAPSULE BY MOUTH once weekly DIRECTED 12 capsule 2 Active famotidine (PEPCID) 40 MG tablet Take 1 (one) tablet by mouth 2 times daily 2 Active methocarbamol (ROBAXIN) 750 MG tablet Take 1 (one) tablet by mouth once daily 2 Active rosuvastatin (Crestor) 40 MG tablet Take 1 (one) tablet by mouth once daily 2 Active ezetimibe (Zetia) 10 MG tablet 3 Active fluticasone propionate (Flonase) 50 MCG/ACT nasal spray SPRAY 1 SPRAY INTO EACH NOSTRIL EVERY DAY 3 Active benzonatate (Tessalon) 100 MG capsule Take 1 (one) capsule by mouth 3 times daily as needed 4 Active Magnesium Oxide -Mg Supplement 400 (240 Mg) MG 4 Active Active Problems Problem Noted Date Diagnosed Date Fibromyalgia 06/26/2017 Medication monitoring encounter 06/26/2017 Encounter for long-term (cur rent) use of high-risk medication 06/26/2017 Degeneration of lumbar or lumbosacral interverte bral disc 02/14/2011 Encounters Date Type Department Care Team Description 08/08/2024 Orders Only [facility] - Rheumatology [address] [place] [address] Reynaldo Carlos, DO from Last 3 Months Immunizations Immunization Administration Dates Next Due FLU VACCINE TRI IIV3 SPLIT IM (FLUVIRIN) 019,02/27/2015 FLU VACCINE TRI IIV3 SPLIT PF IM (FLUVIRIN) 11/2016 INFLUENZA VACCINE, QUADR. (A FLURIA, FLUZONE QUADRIVALENT; 6MO+) (IIV4) 11/12/2019,11/09/2018,02/08/2016 INFLUENZA VACCINE, QUADR. 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 Gender Identity Not on file Sexual Orientation Not on file Last Filed Vital Signs Vital Sign Reading Time Taken Comments Blood Pressure 115/76 01/30/2024 2:13 PM WARP DRESSER Pulse 60 01/30/2024 2:13 PM WARP DRESSER Temperature 36.5 C (97.7 F) 01/30/2024 2:13 PM WARP DRESSER Respiratory Rate 16 12/26/2016 1:10 PM CDT Oxygen Saturation 97% 01/30/2024 2:13 PM WARP DRESSER Inhaled Oxygen Concentration - - Weight 66.2 kg (146 lb) 01/30/2024 2:13 PM WARP DRESSER Height 163.8 cm (5' 4.5) 01/30/2024 2:13 PM WARP DRESSER Body Mass Index 24.67 01/30/2024 2:13 PM WARP DRESSER Plan of Treatment Health Maintenance Due Date Last Done Comments COLOGUARD (AGES 45-75) - COLON CA SCREENING 1961 COLON MONITORING 1961 COLONOSCOPY - COLON CA SCREENING 1961 CT COLONOGRAPHY - COLON CA SCREENING 1961 Colorectal Cancer Screening 1961 FIT - COLON CA SCREENING 1961 FLEX SIG - COLON CA SCREENING 1961 MAMMOGRAM 1961 PAP SMEAR 1961 HIV SCREENING 1976 DTAP/TDAP/TD VACCINES (1 - Tdap) 1980 PNEUMOCOCCAL VACCINE 50+ (1 of 1 - PCV) 12/09/2011 ZOSTER VACCINE (1 of 2) 12/09/2011 COVID-19 VACCINE (4 - season) 2023 05/18/2021, 06/18/2020, 05/28/2020 DEPRESSION SCREENING 03/20/2024 10/04/2022, 10/06/19 INFLUENZA VACCINE (Season Ended) 2024 11/16/2021, 11/12/2019, 11/09/2018, Additional history exists Respiratory Syncytial Virus (RSV) Vaccine Pt: or over 60 yrs (1 - 1-dose 75+ series) 2036 HEPATITIS C SCREENING Completed 06/26/2014 HEPATITIS B VACCINE Aged Out No longe r eligible based on patient's age to complete this topic HIB VACCINE Aged Out No longer eligi ble based on patient's age to complete this topic HPV VACCINE Aged Out No longer eligi ble based on patient's age to complete this topic MENINGOCOCCAL (Group B) VACCINE SHARED DECISION-MAKING Aged Out No longer eligible based on patient's age to complete this topic MENINGOCOCCAL GROUPS A/C/Y/W VACCINE Aged Out No longer eligible based on patient's age to complete this topic Procedures Procedure Name Priority Date/Time Associated Diagnosis Comments CBC W/O DIFFERENTIAL 08/08/2024 12:49 PM CDT CK BLOOD 08/08/2024 12:49 PM CDT URINALYSIS W/MICROSCOPIC NO CULTURE 08/08/2024 12:49 PM CDT ERYTHROCYTE SEDIMENTATION RATE 08/08/2024 12:49 PM CDT C-REACTIVE PROTEIN 08/08/2024 12 :49 PM CDT HEPATITIS C ANTIBODY Routine 06/26/2014 3:02 PM CDT from Last 3 Months or Most Recently Relevant to Health Maintenance Results * URINALYSIS W/MICROSCOPIC NO CULTURE (08/08/2024 12:49 PM CDT) Color UA YELLOW YELLOW [facility] Appearance CLEAR CLEAR [facility] Specific [place] UA 1.006 1.001 - 1.035 [facility] pH UA 6.0 5.0 - 8.0 [facility] Glucose UA NEGATIVE NEGATIVE [facility] Bilirubin UA NEGATIVE NEGATIVE [facility] Ketone UA NEGATIVE NEGATIVE [facility] Blood UA NEGATIVE NEGATIVE [facility] Protein UA NEGATIVE NEGATIVE [facility] Nitrite UA NEGATIVE NEGATIVE [facility] Leukocyte UA NEGATIVE NEGATIVE [facility] WBC UA NONE SEEN < OR = 5 /HPF [facility] RBC UA NONE SEEN < OR = 2 /HPF [facility] Epithelial Cell UA NONE SEEN < OR = 5 /HPF [facility] Bacteria UA NONE SEEN NONE SEEN /HPF [facility] Hyaline Casts NONE SEEN NONE SEEN /LPF [facility] Note See Below [facility] Comment: This urine was analyzed for the presence of WBC, RBC, bacteria, casts, and other formed elements. Only those elements seen were reported. Test Performed at: [email or web address] [address] RYAN SHANE MD 08/08/2024 12:4 9 PM CDT 08/08/2024 12:50 PM CDT us Reynaldo Carlos DO LAB - URINALYSIS ORDERABLES Final Result Performing Organization Address [facility] Co de Phone Number [address] [address] * C-REACTIVE PROTEIN (08/08/2024 12:49 PM CDT) C-Reactive Protein <5.0 <8.0 mg/L [facility] Comment: Test Performed at: [facility] [address] RYAN SHANE MD 08/08/2024 12:4 9 PM CDT 08/08/2024 12:50 PM CDT us Reynaldo Carlos DO LAB - CHEMISTRY ORDERABLES F inal Result Performing Organization Address [facility] Co de Phone Number [address] [address] * ERYTHROCYTE SEDIMENTATION RATE (08/08/2024 12:49 PM CDT) Erythrocyte Sedimentation Rate Westergren 5 < OR = 30 mm/h [facility] Comment: Test Performed at: [facility] [address] RYAN SHANE MD 08/08/2024 12:4 9 PM CDT 08/08/2024 12:50 PM CDT us Reynaldo Carlos DO LAB - HEMATOLOGY ORDERABLES Final Result Performing Organization Address [facility] Co de Phone Number [address] [address] * (ABNORMAL) CBC W/O DIFFERENTIAL (08/08/2024 12:49 PM CDT) Pathologist [facility] White Blood Cell Count 3.1(L) 3.8 - 10.8 Thousand/ uL [facility] RBC 4.05 3.80 - 5.10 Million/u L [facility] Hemoglobin 12.9 11.7 - 15.5 g/dL [facility] Hematocrit 40.2 35.0 - 45.0 % [facility] MCV 99.3 80.0 - 100.0 fL [facility] MCH 31.9 27.0 - 33.0 pg [facility] MCHC 32.1 32.0 - 36.0 g/dL [facility] Comment: For adults, a slight decrease in the calculated MCHC value (in the range of 30 to 32 g/dL) is most likely not clinically significant; however, it should be interpreted with caution in correlation with other red cell parameters and the patient's clinical condition. RDW 11.7 11.0 - 15.0 % [facility] Platelet Count 262 140 - 400 Thousand/ uL [facility] MPV 10.0 7.5 - 12.5 fL [facility] Comment: Test Performed at: [facility] [address] RYAN SHANE MD 08/08/2024 12:4 9 PM CDT 08/08/2024 12:50 PM CDT Reynaldo Carlos DO LAB - HEMATOLOGY ORDERABLES Final Result Performing Organization Address [facility] de Phone Number [address] [address] * CK BLOOD (08/08/2024 12:49 PM CDT) Pathologist [facility] CK 91 20 - 243 U/L [facility] Comment: Test Performed at: [facility] [address] RYAN SHANE MD 08/08/2024 12:4 9 PM CDT 08/08/2024 12:50 PM CDT Reynaldo Carlos DO LAB - CHEMISTRY ORDERABLES F inal Result Performing Organization Address City/[facility]/ZIP Co de Phone Number [address] [place] [address] * HEPATITIS C ANTIBODY (06/26/2014 3:02 PM CDT) Hepatitis C Antibody NON-REACTI VE NON-REACT MEGHNA [facility] ([facility]) Signal/Cutoff 0.01 <1.00 [facility] ([facility]) Comment: Test Performed at: [facility] [address] [place] [address] WALLACE TAYLOR DO,MPH Blood specimen (specimen) BLOOD SPECIMEN / Unknown 06/26/2014 3:02 PM CDT 06/26/2014 3:03 PM CDT Narrative [facility] ([facility]) - 06/30/2014 12:00 PM CDT Copy to patient Copy to PCP, Amy Sky, fax:[phone] us [facility] LAB - CHEMISTRY ORDERABLES Ed ited Result - Final [facility] (U) [id number] from Last 3 Months or Most Recently Relevant to Health Maintenance Insurance [facility] Care Teams [employer] Boards Relationship Specialty Start Date End Date Tequila Rodriguez MD [address] [place] [address] PCP - General 02/08/22
--- OUTSIDE RECORDS SUMMARY | 2024-08-14 16:18 | XMS_ITS | Clinical Summary ---
Author Organization [facility] Address [address] [place] [address] Care Team Providers Care Avp Name Role Phone Tequila Rodriguez MD Primary Care Provider Allergies Active Allergy Reactions Criticality Noted Date Comments Atorvastatin Other (See comments) Low 01/15/2018 Progesterone Shortness of breath High 12/23/2021 Medications loratadine 10 mg capsule Take by mouth Active famotidine (PEPCID) 40 mg tablet Take 40 mg by mouth daily Active diclofenac DR (VOLTAREN) 75 mg EC tablet Take 75 mg by mouth 2 (two) times a day Active pregabalin (LYRICA) 50 mg capsule Take 50 mg by mouth 3 (three) times a day Active hyoscyamine (LEVSIN) 0.125 mg tablet Take 0.125 mg by mouth every 4 (four) hours as needed Active rosuvastatin (CRESTOR) 40 mg tablet Take 40 mg by mouth daily Active gabapentin (NEURONTIN) 100 mg capsule Take by mouth 3 (three) times a day Active methocarbamoL (ROBAXIN) 750 mg tablet Take 750 mg by mouth 4 (four) times a day Active dicyclomine (BENTYL) 10 mg capsule Take 10 mg by mouth 4 (four) times a day before meals and nightly Active fenofibrate nanocrystallized (TRIGLIDE) 160 mg tablet Take 145 mg by mouth daily 9 Active ergocalciferol (VITAMIN D) 50,000 unit capsule TAKE 1 CAPSULE BY MOUTH once weekly DIRECTED 2 Active acetaminophen-codein e (TYLENOL with CODEINE #3) 300-30 mg per tablet TAKE 1 TABLET BY MOUTH FOUR TIMES A DAY NEEDED FOR PAIN 2 Active Active Problems Problem Noted Date Diagnosed Date Pure hypercholesterolemia 08/06/2023 Pelvic congestion 01/05/2022 Assessment & Plan (01/05/2022 3:10 PM CDT): Patient has symptoms consistent with pelvic congestion syndrome with prominent adnexal and pelvic varicosities on recent CT scan. Had a long discussion with the patient about symptoms and treatment options. Had recommended venogram with possible coil embolization. Patient wishes to discuss further with family and will call me to schedule. Chest pain 07/04/2012 Osteoarthritis 07/04/2012 Fibromyalgia 07/04/2012 Chronic pain 07/04/2012 Degeneration of lumbar or lumbosacral interverte bral disc 02/14/2011 Assessment & Plan (01/05/2022 3:09 PM CDT): Patient has chronic low back pain with radicular symptoms lower extremity that she states is noticeably different from the discomfort in the pelvis. Recommended continue compliance with current treatment plan in regards to degenerative disc disease. Immunizations Immunization Administration Dates Next Due Influenza, Quadrivalent, Spl it, Intramuscular 11/12/2019,11/09/2018,02/08/2016 Influenza, Quadrivalent, Spl it, Preservative Free, Intramuscular 11/16/2021,01/15/2018 Influenza, Trivalent, IM (MDV) 02/27/2015 Influenza, Trivalent, Preser vative Free, Intramuscular 12/26/2016 Medical History Medical History Date Comments Fibromyalgia Hyperlipidemia Osteoporosis Family History Medical History Relation Name Comments Heart attack Father Hypertension Father No Known Problems Mother Relation Name Status Comments Father Mother Social History Tobacco Use Types Packs/Day Years Used Date Smoking Tobacco: Former Personal Safety Answer Date Recorded Getting School Help Needed Not on file 02/28 Comments Unknown Sex and Gender Information Value Date Recorded Sex Assigned at Not on file 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 Gender Identity Not on file Sexual Orientation Not on file Obstetrics History Last Filed Vital Signs Vital Sign Reading Time Taken Comments Blood Pressure 126/72 12/29/2021 1:59 PM CDT Pulse 81 12/29/2021 1:59 PM CDT Temperature - - Respiratory Rate - - Oxygen Saturation 97% 07/04/2012 3:03 PM CDT Inhaled Oxygen Concentration - - Weight 63 kg (139 lb) 12/29/2021 1:59 PM CDT Height 168.9 cm (5' 6.5) 12/29/2021 1:59 PM CDT Body Mass Index 22.1 12/29/2021 1:59 PM CDT Plan of Treatment Health Maintenance Due Date Last Done Comments Breast Cancer Screening-Mammogram 1961 Cervical Cancer Screening 1961 Colon Cancer Screening-Colonoscopy 1961 Depression Screening 1961 Hepatitis C Screening 1961 DTaP/Tdap/Td Vaccine (1 - Tdap) 1972 Hepatitis B Screening 12/09/1979 Regular Well Visit/Exam 18-64 12/09/1979 Zoster Vaccine (1 of 2) 12/09/2011 Covid-19 Vaccine ( - season) 2023 05/18/2021, 06/18/2020, 05/28/2020 Influenza Vaccine (Season Ended) 2024 11/16/2021, 11/12/2019, 11/09/2018, Additional history exists Pneumococcal vaccine <65 Aged Out No longer eligible based on patient's age to complete this topic Insurance [facility] Care Teams Avp Relationship Specialty Start Date End Date Tequila Rodriguez MD PCP - General Family Practice 12/14/21
--- OUTSIDE RECORDS SUMMARY | 2024-08-14 16:18 | XMS_ITS | Referral Summary ---
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
--- OUTSIDE RECORDS SUMMARY | 2024-08-14 16:18 | XMS_ITS | Clinical Summary ---
Author Organization [facility] Address [address], [address] [address] Phone Care Team Providers Care Bag Valver Name Role Phone Pedro Byrnes MD Primary Care Provider [phone] Medications polyethylene glycol (MIRALAX) Powder Mix the entire bottle with 64 oz of a clear liquid. Use as directed by the office for colonoscopy prep. 255 g 8 Active Social History Tobacco Use Types Packs/Day Years Used Date Smoking Tobacco: Never Assessed Comments Unknown Sex and Gender Information Value Date Recorded Sex Assigned at Not on file Legal Sex Female 2:30 PM RENTAL REPRESENTATIVE Gender Identity Not on file Sexual Orientation Not on file Plan of Treatment Health Maintenance Due Date Last Done Comments Hepatitis C Virus (HCV) Screening 1961 TdaP Immunization 1961 Pap Smear 1982 Cervical Cancer Screening (CCS) 12/09/1991 HPV/Cotest 12/09/1991 Cologuard 12/09/2011 Immunochemical Fecal Occult Blood 12/09/2011 Mammogram 12/09/2011 Pneumococcal Immunization (5 0+ years) (1 of 1 - PCV) 12/09/2011 Zoster Immunization (1 of 2) 12/09/2011 Colonoscopy 08/09/2022 08/09/2017 Colorectal Cancer Screening 08/09/2022 Influenza Immunization (#1) 2023 SARS-COV-2 Immunization (1 - 2023- season) 2023 Respiratory Syncytial Virus (RSV) Immunization (Adult) (1 - 1-dose 75+ series) 2036 08/09/2017 Hepatitis B Immunization Aged Out No longer eligible based on patient's age to complete this topic Meningococcal Immunization (ACWY) Aged Out No longer eligible based on patient's age to complete this topic Pneumococcal Immunization Combined Aged Out No longer eligible based on patient's age to complete this topic Rotavirus Immunization Aged Out No lo nger eligible based on patient's age to complete this topic Procedures Procedure Name Priority Date/Time Associated Diagnosis Comments HM COLONOSCOPY Routine 08/09/2017 from Last 3 Months or Most Recently Relevant to Health Maintenance Results * HM COLONOSCOPY (08/09/2017) Nate Vargas DO PROCEDURE/MINOR SURGICAL ORDERA BLES Final Result from Last 3 Months or Most Recently Relevant to Health Maintenance Insurance MEDICA[employer] Care Teams Bag Valver Relationship Specialty Start Date End Date Pedro Byrnes MD [address] [place] [address] PCP - General Family Medicine 05/03/17
[2024-08-14 16:36] VITALS: BP 151/86; PULSE 64; RESP 16; TEMP 36.8; O2SAT 100
--- NOTE | 2024-08-14 17:35 | ED.ABDPAIN ---
HPI - Abdominal Pain General Chief Complaint: Abdominal Pain <MICAH Smith Last Filed: 08/15/24 09:35> Stated Complaint: Abdominal pain-radiates to left side of back <MICAH Smith Last Filed: 08/15/24 09:35> Time Seen by Provider: 08/14/24 17:35 <Yas Santos PA-C - Last Filed: 08/15/24 09:35> Focused HPI: This is a 63 year old female that presents to the ER for abdominal pain, back pain. Reports associated nausea. This has been ongoing over the last several weeks. She has been taking her prescribed pain medication with little relief. Reports urinary frequency. Denies fevers, vomiting, dysuria, hematuria. GENERAL: Well-appearing, well-nourished, and in no acute distress. HEAD: Normocephalic, atraumatic. CHEST: Clear to auscultation. ?No respiratory distress. HEART: Regular rate and rhythm.? NEURO: ?Alert and oriented x3. Patient screened in triage and initial orders placed.? ?Additional care and disposition to be based upon?diagnostic testing and treatment. <MICAH Smith Last Filed: 08/15/24 09:35> Related Data Home Medications: Home Medications ?Medication ?Instructions ?Recorded ?Confirmed ?Last Taken ?Type loratadine 10 mg tablet (Claritin) 10 mg PO DAILY 07/02/20 08/02/24 Unknown History famotidine 40 mg tablet 40 mg PO DAILY 12/26/23 08/02/24 Unknown History <MICAH Smith Last Filed: 08/15/24 09:35> Allergies/Adverse Reactions: Allergies Allergy/AdvReac Type Severity Reaction Status Date / Time progesterone Allergy Unknown shortness Verified 08/14/24 16:16 of breath alendronate sodium AdvReac Mild Itching Verified 08/14/24 16:16 prednisolone AdvReac Mild Anxiety Verified 08/14/24 16:16 <MICAH Smith Last Filed: 08/15/24 09:35> Review of Systems Review of Systems: All systems reviewed & are unremarkable except as noted in HPI and below <Yas Santos PA-C - Last Filed: 08/15/24 09:35> [facility] Past Medical History Medical History: Medical History (Updated 08/15/24 @ 09:35 by Yas Santos PA-C) Peripheral neuropathy GERD without esophagitis Seasonal allergies Adenomatous colon polyp Pelvic congestion syndrome Chronic hip pain, bilateral Chronic neck and back pain Fibromyalgia Mixed hyperlipidemia Osteoporosis Primary osteoarthritis, unspecified site <Yas Santos PA-C - Last Filed: 08/15/24 09:35> Surgical History Surgical History: Surgical History History of cervical spinal surgery 2003 <Yas Santos PA-C - Last Filed: 08/15/24 09:35> Family History Family History: Family History Father Hypertension Cerebrovascular accident Other Family history of coronary artery disease Family history of elevated blood lipids <Yas Santos PA-C - Last Filed: 08/15/24 09:35> Social History Social History: Social History Social History: Caffeine- daily Smoking packs per day: 0 Smoking cigarettes per day: 0.0 Years smoked: 0 Smoking pack-years: 0.00 Smoking status: Never smoker Second hand tobacco smoke exposure: No Alcohol intake: never Substance use: never Substance use type: does not use Do You Feel Safe in your Home?: Yes Lack of Transportation: No Lack of Food: Sometimes True Current Housing: I Have Housing Concerned About Future Housing: Decline to Answer Difficulty Paying Gas/Electric Bills: No Difficulty Paying for Meds: Decline to Answer Currently Unemployed: Decline to Answer Education: Decline to Answer Difficulty w/ Childcare or Family Care: No Living arrangements: with family Gender identity (if verbalized by the patient): Female Spiritual care concerns: No <Yas Santos PA-C - Last Filed: 08/15/24 09:35> Exam Narrative: APPEARANCE: No apparent distress. Head: atraumatic. EYES: EOMI, NOSE: Atraumatic NECK: Trachea midline RESPIRATORY: No increased rate of breathing clear to auscultation CARDIOVASCULAR: RRR, ABDOMINAL: Non-distended soft nontender no guarding rebound, no CVA tenderness MUSCULOSKELETAl: No obvious deformities NEURO: Alert. Moving 4/4 extremities SKIN:: Warm, dry. Normal color PSYCHIATRIC: Normal affect <Red Cordon MD - Last Filed: 08/14/24 22:09> Course Vital Signs Vital signs: Vital Signs Temperature 98.2 F 08/14/24 16:36 Pulse Rate 64 08/14/24 16:36 Respiratory Rate 16 08/14/24 16:36 Blood Pressure 151/86 H 08/14/24 16:36 Pulse Oximetry 100 08/14/24 16:36 Temperature 98.2 F 08/14/24 16:36 Pulse Rate 64 08/14/24 16:36 Respiratory Rate 16 08/14/24 16:36 Blood Pressure 151/86 H 08/14/24 16:36 Pulse Oximetry 100 08/14/24 16:36 <Yas Santos PA-C - Last Filed: 08/15/24 09:35> Vital Signs Temperature 98.2 F 08/14/24 16:36 Pulse Rate 64 08/14/24 16:36 Respiratory Rate 16 08/14/24 16:36 Blood Pressure 151/86 H 08/14/24 16:36 Pulse Oximetry 100 08/14/24 16:36 Temperature 98.2 F 08/14/24 16:36 Pulse Rate 64 08/14/24 16:36 Respiratory Rate 16 08/14/24 16:36 Blood Pressure 151/86 H 08/14/24 16:36 Pulse Oximetry 100 08/14/24 16:36 <Red Cordon MD - Last Filed: 08/14/24 22:09> MDM - Abdominal Pain MDM Narrative Medical decision making narrative: -Course: 63-year-old female presenting with 1 month of abdominal discomfort. Vital signs are stable. Her abdominal exam is benign. Laboratory studies ordered in triage were within normal limits. After evaluating the patient I offered to obtain a CT abdomen pelvis, however the patient declined stating she did not have a ride and could not wait for the results. She will follow-up with Dr. Cadet she is seen in the past for GI issues. Given return precautions Differential diagnosis: IBS, constipation, gastroenteritis, diverticulitis, appendicitis <Red Cordon MD - Last Filed: 08/14/24 22:09> Lab Data Result diagrams: 08/14/24 18:31 08/14/24 18:31 <Yas Santos PA-C - Last Filed: 08/15/24 09:35> Labs: Lab Results 08/14/24 08/14/24 Range/Units 18:27 18:31 WBC 4.3 L (4.5-10.0) K/mm3 RBC 4.17 L (4.2-5.4) M/mm3 Hgb 13.2 (12.0-15.0) g/dL Hct 39.9 (37.0-47.0) % MCV 95.7 (80-100) fl MCH 31.7 (26-34) pg MCHC 33.1 (32-36) g/dl RDW 11.8 (11.5-14.5) % Plt Count 261 (150-375) k/mm3 MPV 9.3 (7.4-10.4) fl Immature Gran % (Auto) 0.2 (0-0.5) % Neut % (Auto) 39.3 L (45.5-73.1) % Lymph % (Auto) 49.5 H (18.3-44.2) % [place] % (Auto) 8.5 (2.6-8.5) % Eos % (Auto) 1.6 (0-4.4) % Baso % (Auto) 0.9 (0.2-1.2) % Lymph # (Auto) 2.15 (0.9-3.2) K/mm3 [place] # (Auto) 0.4 (0.1-0.6) K/mm3 Eos # (Auto) 0.1 (0-0.3) K/mm3 Baso # (Auto) 0.0 (0.0-0.1) K/mm3 Abs Immat Gran (auto) 0.01 (0.00-0.031) K/mm3 Absolute Neuts (auto) 1.7 (1.3-6.7) K/mm3 Absolute Nucleated RBC 0.000 (0.0-0.012) K/mm3 Nucleated RBC % 0.0 (0.0-0.2) % Sodium 138 (137-145) mmol/L Potassium 4.7 (3.4-5.0) mmol/L Chloride 103 (98-107) mmol/L Carbon Dioxide 31 H (22-30) mmol/L Anion Gap 4 (4-12) mmol/L BUN 13 (7-17) mg/dL Creatinine 0.68 L (0.7-1.0) mg/dL Estim Creat Clear Calc 64 ml/min Estimated GFR > 60 (59 - ) Glucose 92 (65-110) mg/dL Calcium 9.9 (8.4-10.2) mg/dL Total Bilirubin 0.3 (0.2-1.3) mg/dL AST 33 (14-36) U/L ALT 22 (6-35) U/L Alkaline Phosphatase 49 (38-126) U/L Total Protein 8.0 (6.3-8.2) g/dL Albumin 4.6 (3.5-5.1) g/dL Lipase 81 (23-300) U/L Urine Color Yellow (Yellow) Urine Appearance Clear (Clear) Urine pH 7.0 (5.0-9.0) Ur Specific [place] 1.007 (1.001-1.035) Urine Protein Negative (Negative) mg/dL Urine Glucose (UA) Negative (Negative) mg/dL Urine Ketones Negative (Negative) mg/dL Ur Blood (Man) Negative (Negative) Urine Nitrate Negative (Negative) Urine Bilirubin Negative (Negative) Urine Urobilinogen 0.2 (<2.0) mg/dL Leukocyte Esterase Rfl Trace H (Negative) TAYLOR/UL Urine RBC 0-2 (0-2) /hpf Urine WBC 0-5 (0-3) /hpf Ur Squamous Epith Cells None seen (Few) /hpf Urine Bacteria None seen /hpf Urine Casts 0-2 <Yas Santos PA-C - Last Filed: 08/15/24 09:35> Lab Results 08/14/24 08/14/24 Range/Units 18:27 18:31 WBC 4.3 L (4.5-10.0) K/mm3 RBC 4.17 L (4.2-5.4) M/mm3 Hgb 13.2 (12.0-15.0) g/dL Hct 39.9 (37.0-47.0) % MCV 95.7 (80-100) fl MCH 31.7 (26-34) pg MCHC 33.1 (32-36) g/dl RDW 11.8 (11.5-14.5) % Plt Count 261 (150-375) k/mm3 MPV 9.3 (7.4-10.4) fl Immature Gran % (Auto) 0.2 (0-0.5) % Neut % (Auto) 39.3 L (45.5-73.1) % Lymph % (Auto) 49.5 H (18.3-44.2) % [place] % (Auto) 8.5 (2.6-8.5) % Eos % (Auto) 1.6 (0-4.4) % Baso % (Auto) 0.9 (0.2-1.2) % Lymph # (Auto) 2.15 (0.9-3.2) K/mm3 [place] # (Auto) 0.4 (0.1-0.6) K/mm3 Eos # (Auto) 0.1 (0-0.3) K/mm3 Baso # (Auto) 0.0 (0.0-0.1) K/mm3 Abs Immat Gran (auto) 0.01 (0.00-0.031) K/mm3 Absolute Neuts (auto) 1.7 (1.3-6.7) K/mm3 Absolute Nucleated RBC 0.000 (0.0-0.012) K/mm3 Nucleated RBC % 0.0 (0.0-0.2) % Sodium 138 (137-145) mmol/L Potassium 4.7 (3.4-5.0) mmol/L Chloride 103 (98-107) mmol/L Carbon Dioxide 31 H (22-30) mmol/L Anion Gap 4 (4-12) mmol/L BUN 13 (7-17) mg/dL Creatinine 0.68 L (0.7-1.0) mg/dL Estim Creat Clear Calc 64 ml/min Estimated GFR > 60 (59 - ) Glucose 92 (65-110) mg/dL Calcium 9.9 (8.4-10.2) mg/dL Total Bilirubin 0.3 (0.2-1.3) mg/dL AST 33 (14-36) U/L ALT 22 (6-35) U/L Alkaline Phosphatase 49 (38-126) U/L Total Protein 8.0 (6.3-8.2) g/dL Albumin 4.6 (3.5-5.1) g/dL Lipase 81 (23-300) U/L Urine Color Yellow (Yellow) Urine Appearance Clear (Clear) Urine pH 7.0 (5.0-9.0) Ur Specific [place] 1.007 (1.001-1.035) Urine Protein Negative (Negative) mg/dL Urine Glucose (UA) Negative (Negative) mg/dL Urine Ketones Negative (Negative) mg/dL Ur Blood (Man) Negative (Negative) Urine Nitrate Negative (Negative) Urine Bilirubin Negative (Negative) Urine Urobilinogen 0.2 (<2.0) mg/dL Leukocyte Esterase Rfl Trace H (Negative) TAYLOR/UL Urine RBC 0-2 (0-2) /hpf Urine WBC 0-5 (0-3) /hpf Ur Squamous Epith Cells None seen (Few) /hpf Urine Bacteria None seen /hpf Urine Casts 0-2 <Red Cordon MD - Last Filed: 08/14/24 22:09> Critical Care Time Critical Care Time Critical Care Time: No <Yas Santos PA-C - Last Filed: 08/15/24 09:35> Discharge Plan Discharge Clinical Impression: Abdominal pain Qualifiers: Abdominal location: unspecified location Qualified Code(s): R10.9 - Unspecified abdominal pain <Yas Santos PA-C - Last Filed: 08/15/24 09:35> Patient Disposition: Home <Yas Santos PA-C - Last Filed: 08/15/24 09:35> Condition: Stable <Yas Santos PA-C - Last Filed: 08/15/24 09:35> Instructions: Antibiotic Form, Abdominal Pain (ED) <Yas Santos PA-C - Last Filed: 08/15/24 09:35> Additional Instructions: You were seen in emergency department for abdominal pain. Please follow-up with Dr. Cadet for further management. If you develop any symptoms of his fevers severe abdominal pain or intractable nausea vomiting please return to the ED for re-evaluation. <Yas Santos PA-C - Last Filed: 08/15/24 09:35> Patient Language: Nepalese <Yas Santos PA-C - Last Filed: 08/15/24 09:35> Prescriptions: No Action loratadine [Claritin] 10 mg tablet 10 mg PO DAILY Caltrate 600 plus D 600 mg-20 mcg (800 unit) tablet,chewable 1 tablet PO BID Qty: 180 1RF famotidine 40 mg tablet 40 mg PO DAILY (DME) shower chair See Rx Instructions .Route .MEDSUPPLY Qty: 1 0RF Rx Instructions: As directed benzonatate 100 mg capsule 100 mg PO BID PRN (Reason: cough) Qty: 90 0RF venlafaxine [Effexor XR] 37.5 mg capsule,extended release 24hr 37.5 mg PO DAILY Qty: 60 5RF Rx Instructions: increase to 2 capsules after 2 weeks should be taken in the morning amitriptyline 25 mg tablet 25 mg PO QHS Qty: 60 6RF Rx Instructions: after 2 weeks increase to 2 tablets at bedtime pregabalin 75 mg capsule 75 mg PO TID Qty: 90 5RF Rx Instructions: 1 capsule twice a day for 2 weeks and thereafter 1 capsule in the morning and 2 capsules at bedtime rosuvastatin 40 mg tablet 40 mg PO DAILY Qty: 90 2RF ezetimibe 10 mg tablet 10 mg PO DAILY Qty: 90 2RF methocarbamol 750 mg tablet See Rx Instructions .ROUTE .COMPLEX Qty: 90 5RF Dose Instruction: TAKE ONE TABLET (750MG) BY MOUTH UP TO THREE TIMES A DAY NEEDED Rx Instructions: TAKE ONE TABLET (750MG) BY MOUTH UP TO THREE TIMES A DAY NEEDED diclofenac sodium 75 mg tablet,delayed release (DR/EC) See Rx Instructions .ROUTE .COMPLEX Qty: 60 5RF Dose Instruction: TAKE ONE TABLET (75MG) BY MOUTH TWICE A DAY Rx Instructions: TAKE ONE TABLET (75MG) BY MOUTH TWICE A DAY magnesium oxide 400 mg (241.3 mg magnesium) tablet See Rx Instructions .ROUTE .COMPLEX Qty: 90 1RF Dose Instruction: TAKE ONE TABLET (400 MG) ORALLY DAILY WITH A MEAL DIRECTED Rx Instructions: TAKE ONE TABLET (400 MG) ORALLY DAILY WITH A MEAL DIRECTED fluticasone propionate [Flonase Allergy Relief] 50 mcg/actuation spray,suspension 1 spray intranasal DAILY PRN (Reason: allergy symptoms) Qty: 16 2RF Rx Instructions: administer into each nostril <Yas Santos PA-C - Last Filed: 08/15/24 09:35> Follow-up/Referrals: Shital Rodriguez MD [Primary Care Provider] - Manny Ramirez MD [Physician] - 1 Week (Abdominal discomfort ) <Yas Santos PA-C - Last Filed: 08/15/24 09:35>
[2024-08-14 18:40] LABS: Basophils Percent Auto 0.9 % (0.2-1.2); Eosinophils Absolute Auto 0.1 K/mm3 (0-0.3); Eosinophils Percent Auto 1.6 % (0-4.4); Hematocrit 39.9 % (37.0-47.0); Hemoglobin 13.2 g/dL (12.0-15.0); Immature Granulocyte Absolute 0.01 K/mm3 (0.00-0.031); Immature Granulocyte Percent A 0.2 % (0-0.5); Lymphocytes Absolute Auto 2.15 K/mm3 (0.9-3.2); Lymphocytes Percent Auto 49.5 % (18.3-44.2); Mean Corpuscular HGB Conc 33.1 g/dl (32-36); Mean Corpuscular Hemoglobin 31.7 pg (26-34); Mean Corpuscular Volume 95.7 fl (80-100); Mean Platelet Volume 9.3 fl (7.4-10.4); Monocytes Absolute Auto 0.4 K/mm3 (0.1-0.6); Monocytes Percent Auto 8.5 % (2.6-8.5); Neutrophils Absolute Auto 1.7 K/mm3 (1.3-6.7); Neutrophils Percent Auto 39.3 % (45.5-73.1); Platelet Count Result 261 k/mm3 (150-375); Red Blood Count 4.17 M/mm3 (4.2-5.4); Red Cell Distribution Width 11.8 % (11.5-14.5); White Blood Count 4.3 K/mm3 (4.5-10.0)
[2024-08-14 18:46] LABS: Add Urine Microscopic? YES; Appearance Urine Clear (Clear); Bacteria Urine None Seen /hpf; Bilirubin Urine Negative (Negative); Blood Urine Negative (Negative); Color Urine Yellow (Yellow); Glucose Urine UA Negative (Negative); Ketones Urine Negative (Negative); Leukocyte Esterase Ur Trace LEU/UL (Negative); Nitrate Urine Negative (Negative); Non Pathogenic Casts 0-2; Protein Urine Negative (Negative); RBC Urine 0-2 /hpf (0-2); Specific Grav Ur 1.007 (1.001-1.035); Squamous Epithelial Cell Urine None Seen /hpf (Few); Urobilinogen Urine 0.2 mg/dL (<2.0); WBC Urine 0-5 /hpf (0-3)
[2024-08-14 18:49] LABS: Alanine Aminotransferase 22 U/L (6-35); Albumin Level 4.6 g/dL (3.5-5.1); Alkaline Phosphatase 49 U/L (38-126); Anion Gap 4 mmol/L (4-12); Aspartate Amino Transferase 33 U/L (14-36); Bilirubin,Total 0.3 mg/dL (0.2-1.3); Blood Urea Nitrogen 13 mg/dL (7-17); Calcium 9.9 mg/dL (8.4-10.2); Carbon Dioxide 31 mmol/L (22-30); Chloride 103 mmol/L (98-107); Estimated CRCL calculation 64 ml/min; Estimated Glomerular Filt Rate > 60; Glucose 92 mg/dL (65-110); Lipase 81 U/L (23-300); Potassium 4.7 mmol/L (3.4-5.0); Sodium 138 mmol/L (137-145)
--- OUTSIDE RECORDS SUMMARY | 2024-08-14 21:24 | XMS_ITS | Clinical Summary ---
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
--- OUTSIDE RECORDS SUMMARY | 2024-08-14 21:24 | XMS_ITS | Clinical Summary ---
Author Organization [facility] Address [address] [place] [address] Care Team Providers Care Motion Graphics Artist Name Role Phone Tequila Rodriguez MD Primary Care Provider Source Comments [facility],non-owned Affiliates and Associated Physician Practices is amultiple site organization consisting of ambulatory clinics and hospital sitesin [place], [place], [place] and [place]. This disclosure is being madepursuant to the Care Everywhere program and may not contain all information available regarding this patient. 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 Gender Identity Not on file Sexual Orientation Not on file Last Filed Vital Signs Vital Sign Reading Time Taken Comments Blood Pressure 115/76 01/30/2024 2:13 PM PROCESSING INSPECTOR Pulse 60 01/30/2024 2:13 PM PROCESSING INSPECTOR Temperature 36.5 C (97.7 F) 01/30/2024 2:13 PM PROCESSING INSPECTOR Respiratory Rate 16 12/26/2016 1:10 PM CDT Oxygen Saturation 97% 01/30/2024 2:13 PM PROCESSING INSPECTOR Inhaled Oxygen Concentration - - Weight 66.2 kg (146 lb) 01/30/2024 2:13 PM PROCESSING INSPECTOR Height 163.8 cm (5' 4.5) 01/30/2024 2:13 PM PROCESSING INSPECTOR Body Mass Index 24.67 01/30/2024 2:13 PM PROCESSING INSPECTOR Plan of Treatment Health Maintenance Due Date [...] YELLOW [facility] Appearance CLEAR CLEAR [facility] Specific [place] UA 1.006 1.001 - 1.035 [facility] pH [...] elements seen were reported. Test Performed at: [id number] [address] RYAN SHANE MD 08/08/2024 12:4 9 PM CDT 08/08/2024 12:50 PM CDT us Reynaldo Carlos DO LAB - URINALYSIS ORDERABLES Final Result Performing Organization Address [facility] Co de Phone Number [address] [address] * C-REACTIVE PROTEIN (08/08/2024 12:49 PM CDT) C-Reactive Protein <5.0 <8.0 mg/L [facility] Comment: Test Performed at: [id number] [address] RYAN SHANE MD 08/08/2024 12:4 9 PM CDT 08/08/2024 12:50 PM CDT us Reynaldo Carlos DO LAB - CHEMISTRY ORDERABLES F inal Result Performing Organization Address [facility] Co de Phone Number [address] [address] * ERYTHROCYTE SEDIMENTATION RATE (08/08/2024 12:49 PM CDT) Erythrocyte Sedimentation Rate Westergren 5 < OR = 30 mm/h [facility] Comment: Test Performed at: [id number] [address] RYAN SHANE MD 08/08/2024 12:4 9 PM CDT 08/08/2024 12:50 PM CDT us Reynaldo Carlos DO LAB - HEMATOLOGY ORDERABLES Final Result Performing Organization Address [facility] Co de Phone Number [address] [address] * (ABNORMAL) CBC W/O DIFFERENTIAL (08/08/2024 12:49 PM CDT) Pathologist [facility] White Blood Cell Count 3.1(L) 3.8 - [...] 12.5 fL [facility] Comment: Test Performed at: [id number] [address] RYAN SHANE MD 08/08/2024 12:4 9 PM CDT 08/08/2024 12:50 PM CDT Reynaldo Carlos DO LAB - HEMATOLOGY ORDERABLES Final Result Performing Organization Address [facility] de Phone Number [address] [address] * CK BLOOD (08/08/2024 12:49 PM CDT) Pathologist [facility] CK 91 20 - 243 U/L [facility] Comment: Test Performed at: [email or web address] [address] RYAN SHANE MD 08/08/2024 12:4 9 PM CDT 08/08/2024 12:50 PM CDT Reynaldo Carlos DO LAB - CHEMISTRY ORDERABLES F inal Result Performing Organization Address City/[facility]/ZIP Co de Phone Number [address] [place] [address] * HEPATITIS C ANTIBODY (06/26/2014 3:02 PM CDT) Hepatitis C Antibody NON-REACTI VE NON-REACT MEGHNA [facility] ([facility]) Signal/Cutoff 0.01 <1.00 [facility] ([facility]) Comment: Test Performed at: [facility] [address] [place] [address] WALLACE TAYLOR DO,MPH Blood specimen (specimen) BLOOD SPECIMEN / Unknown 06/26/2014 3:02 PM CDT 06/26/2014 3:03 PM CDT Narrative [facility] ([facility]) - 06/30/2014 12:00 PM CDT Copy to patient Copy to PCP, Amy Sky, fax:[phone] us [facility] LAB - CHEMISTRY ORDERABLES Ed ited Result - Final [facility] (U) [id number] from Last 3 Months or Most Recently Relevant to Health Maintenance Insurance [facility] Care Teams Motion Graphics Artist Relationship Specialty Start Date End Date Tequila Rodriguez MD [address] [place] [address] PCP - General 02/08/22
--- OUTSIDE RECORDS SUMMARY | 2024-08-14 21:24 | XMS_ITS | Referral Summary ---
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
--- OUTSIDE RECORDS SUMMARY | 2024-08-14 21:24 | XMS_ITS | Clinical Summary ---
Author Organization [facility] Address [address], [address] [address] Phone Care Team Providers Care Trial Paralegal Name Role Phone Pedro Byrnes MD Primary Care Provider [phone] Medications polyethylene glycol (MIRALAX) Powder Mix the entire bottle with 64 oz of a clear liquid. Use as directed by the office for colonoscopy prep. 255 g 8 Active Social History Tobacco Use Types Packs/Day Years Used Date Smoking Tobacco: Never Assessed Comments Unknown Sex and Gender Information Value Date Recorded Sex Assigned at Not on file Legal Sex Female 2:30 PM EXTERMINATION SUPERVISOR Gender Identity Not on file Sexual Orientation [...] Insurance [employer] [facility] [employer] Care Teams Trial Paralegal Relationship Specialty Start Date End Date Pedro Byrnes MD [address] [place] [address] PCP - General Family Medicine 05/03/17
== END 2024-08-14 22:12 | disposition home or self-care (01) ==
PROVIDERS: Physician Assistant; Emergency Provider Emergency Medicine; PCP Family Medicine
DX: R10.9 Unspecified abdominal pain (principal); K21.9 Gastro-esophageal reflux disease without esophagitis; E78.2 Mixed hyperlipidemia; M81.0 Age-related osteoporosis without current pathological fracture
CPT/HCPCS: 36415; 80053; 81001; 83690; 85025; 99283

== ENCOUNTER 2024-08-29 12:55 | Outpatient (CLI) | payer OTHER, SELFPAY ==
--- NOTE | ~2024-08-29 | CT_ITS ---
CT of the Abdomen and Pelvis: Indication: Abdominal distention Technique: 2.5 mm axial scans were obtained through the abdomen and pelvis following intravenous adm inistration of 100 cc of Omnipaque 350. Dose reduction technique was used on this scan by utilizing a utomated exposure control and iterative reconstruction technique. The dose-length product (DLP) was 3 76.74 mGy-cm. COMPARISON: 09/29/2021 Findings: Scans through the lung bases are clear. Moderate to large hiatal hernia present. The liver, spleen, pancreas, gallbladder, adrenals and kidneys are within normal limits. No evidence of aortic aneurysm. No lymphadenopathy. Suggestion of mild diffuse large bowel wall thickening. No bowel obstruction. No abscess or free air. Images through the pelvis were performed. Urinary bladder unremarkable. No pelvic mass seen. Prominen t parametrial veins are present bilaterally. No ascites. Impression: Possible diffuse infectious/inflammatory colitis. Correlate clinically. Prominent parametrial veins bilaterally raise the possibility of pelvic congestion syndrome. Correlat e clinically. Moderate to large hiatal hernia. Reviewed, dictated and finalized at [facility]. Impression: Possible diffuse infectious/inflammatory colitis. Correlate clinically. Prominent parametrial veins bilaterally raise the possibility of pelvic congest ion syndrome. Correlate clinically. Moderate to large hiatal hernia.
--- OUTSIDE RECORDS SUMMARY | 2024-08-29 13:33 | XMS_ITS | Referral Summary ---
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
--- OUTSIDE RECORDS SUMMARY | 2024-08-29 13:33 | XMS_ITS | Clinical Summary ---
Author Organization [facility] Address [address], [address] [address] Phone Care Team Providers Care Nut Sorter Name Role Phone Pedro Byrnes MD Primary Care Provider [phone] Medications polyethylene glycol (MIRALAX) Powder Mix the entire bottle with 64 oz of a clear liquid. Use as directed by the office for colonoscopy prep. 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
--- OUTSIDE RECORDS SUMMARY | 2024-08-29 13:33 | XMS_ITS | Clinical Summary ---
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
--- OUTSIDE RECORDS SUMMARY | 2024-08-29 13:34 | XMS_ITS | Clinical Summary ---
Author Organization [facility] Address [address] [place] [address] Care Team Providers Care Osha Inspector Name Role Phone Tequila Rodriguez MD Primary Care Provider Source Comments [facility],non-owned Affiliates and Associated Physician Practices is amultiple site organization consisting of ambulatory clinics and hospital sitesin [place], [place], [place] and [place]. This disclosure is being madepursuant to the Care Everywhere program and may not contain all information available regarding this patient. Last updated 17.[facility] [employer] Allergies Active Allergy Reactions Criticality Noted Date [...] Active vitamin D, ergocalciferol, (DRISDOL) 1.25 MG (17957 UT) capsule TAKE 1 CAPSULE BY MOUTH [...] Encounters Date Type Department Care Team Description 08/19/2024 Telephone [facility] - Rheumatology [address] [place] [phone] Rishi Carlos MD Follow-up 08/16/2024 Telephone [facility]ology [address] [place] [phone] Rishi Carlos MD Follow-up 08/08/2024 Orders Only [facility] [address] [place] [phone] Reynaldo Carlos, DO from Last 3 Months Immunizations Immunization Administration Dates Next Due FLU VACCINE TRI IIV3 SPLIT IM (FLUVIRIN) 019,02/27/2015 FLU VACCINE TRI IIV3 SPLIT PF IM (FLUVIRIN) 10/0 11/2016 INFLUENZA VACCINE, QUADR. 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 Gender Identity Not on file Sexual Orientation Not on file Last Filed Vital Signs Vital Sign Reading Time Taken Comments Blood Pressure 115/76 01/30/2024 2:13 PM MINT WAFER DEPOSITOR Pulse 60 01/30/2024 2:13 PM MINT WAFER DEPOSITOR Temperature 36.5 C (97.7 F) 01/30/2024 2:13 PM MINT WAFER DEPOSITOR Respiratory Rate 16 12/26/2016 1:10 PM CDT Oxygen Saturation 97% 01/30/2024 2:13 PM MINT WAFER DEPOSITOR Inhaled Oxygen Concentration - - Weight 66.2 kg (146 lb) 01/30/2024 2:13 PM MINT WAFER DEPOSITOR Height 163.8 cm (5' 4.5) 01/30/2024 2:13 PM MINT WAFER DEPOSITOR Body Mass Index 24.67 01/30/2024 2:13 PM MINT WAFER DEPOSITOR Plan of Treatment Health Maintenance Due Date Last Done Comments COLOGUARD (AGES 45-75) - COLON CA SCREENING 1960 COLON MONITORING 1960 COLONOSCOPY - COLON CA SCREENING 1960 CT COLONOGRAPHY - COLON CA SCREENING 1960 Colorectal Cancer Screening 1960 FIT - COLON CA SCREENING 1960 FLEX SIG - COLON CA SCREENING 1960 MAMMOGRAM 1960 HIV SCREENING 1976 DTAP/TDAP/TD VACCINES (1 - Tdap) 1980 PAP SMEAR 1982 PAP with HPV 12/09/1991 PNEUMOCOCCAL VACCINE 50+ (1 of 1 - PCV) 12/09/2011 ZOSTER VACCINE (1 of 2) 12/09/2011 COVID-19 VACCINE ( season) 2023 05/18/2021, 06/18/2020, 05/28/2020 DEPRESSION SCREENING [...] YELLOW [facility] Appearance CLEAR CLEAR [facility] Specific Mobile UA 1.006 1.001 - 1.035 [facility] pH [...] elements seen were reported. Test Performed at: [facility] [address] RYAN SHANE MD 08/08/2024 12:4 9 PM CDT 08/08/2024 12:50 PM CDT Reynaldo Carlos DO LAB - URINALYSIS ORDERABLES Final Result Performing Organization Address [facility] Co de Phone Number [address] [address] * C-REACTIVE PROTEIN (08/08/2024 12:49 PM CDT) C-Reactive Protein <5.0 <8.0 mg/L [facility] Comment: Test Performed at: [facility] [address] RYAN SHANE MD 08/08/2024 12:4 9 PM CDT 08/08/2024 12:50 PM CDT us Reynaldo Carlos DO LAB - CHEMISTRY ORDERABLES F inal Result Performing Organization Address [facility] Co de Phone Number [address] [address] * ERYTHROCYTE SEDIMENTATION RATE (08/08/2024 12:49 PM CDT) Erythrocyte Sedimentation Rate Westergren 5 < OR = 30 mm/h [facility] Comment: Test Performed at: [facility] [address] RYAN SHANE MD 08/08/2024 12:4 9 PM CDT 08/08/2024 12:50 PM CDT Reynaldo Carlos DO LAB - HEMATOLOGY ORDERABLES Final Result Performing Organization Address [facility] de Phone Number [address] [address] * (ABNORMAL) CBC W/O DIFFERENTIAL (08/08/2024 12:49 PM CDT) White Blood Cell Count 3.1(L) 3.8 - [...] 12.5 fL [facility] Comment: Test Performed at: [facility] [address] RYAN SHANE MD 08/08/2024 12:4 9 PM CDT 08/08/2024 12:50 PM CDT Reynaldo Carlos DO LAB - HEMATOLOGY ORDERABLES Final Result Performing Organization Address [facility] de Phone Number [address] [address] * CK BLOOD (08/08/2024 12:49 PM CDT) Pathologist [facility] CK 91 20 - 243 U/L [facility] Comment: Test Performed at: [facility] [address] [place] [address] RYAN SHANE MD 08/08/2024 12:4 9 PM CDT 08/08/2024 12:50 PM CDT Reynaldo Carlos DO LAB - CHEMISTRY ORDERABLES F inal Result Performing Organization Address [facility] Co de Phone Number [facility] [address] [place] [address] * HEPATITIS C ANTIBODY (06/26/2014 3:02 PM CDT) Hepatitis C Antibody NON-REACTI VE NON-REACT MEGHNA [facility] ([facility]) Signal/Cutoff 0.01 <1.00 [facility] ([facility]) Comment: Test Performed at: [facility] [address] [place] [address] WALLACE TAYLOR DO,MPH Blood specimen (specimen) BLOOD SPECIMEN / Unknown 06/26/2014 3:02 PM CDT 06/26/2014 3:03 PM CDT Narrative [facility] ([facility]) - 06/30/2014 12:00 PM CDT Copy to patient Copy to PCP, Amy Sky, fax:[phone] Mayra Hurt MD LAB - CHEMISTRY ORDERABLES Ed ited Result - Final Performing Organization Address [facility] Co de Phone Number [facility] (U) [address] from Last 3 Months or Most Recently Relevant to Health Maintenance [place] [address] [place] [address] [facility] Care Teams Osha Inspector Relationship Specialty Start Date End Date Tequila Rodriguez MD [address] [place] [address] PCP - General 02/08/22
== END 2024-08-29 12:56 | disposition home or self-care (01) ==
PROVIDERS: PCP Family Medicine; Visit Provider Nurse Practitioner Family
DX: I87.8 Other specified disorders of veins (principal); K44.9 Diaphragmatic hernia without obstruction or gangrene
CPT/HCPCS: 74177; Q9967

== ENCOUNTER 2024-09-06 12:46 | Outpatient (CLI) | payer OTHER, SELFPAY ==
--- NOTE | 2024-09-06 12:53 | ECHO_ITS ---
Patient Info Name: Sarah Quintana Age: 63 years : 1960 Gender: Female Ht: 64 in Wt: 143 lbs BSA: 1.72 m2 HR: 66 bpm BP: 113 / 63 mmHg Technical Quality: Good Exam Date: 09/06/2024 1:15 PM Patient Status: O Admit Date: 09/06/2024 Exam Type: CA echo doppler color flow Complete two-dimensional, color flow and Doppler transthoracic echocardiogram is performed. Supportability Engineer: Tigist León Attending Provider: Krishna Marino DO Summary 1. Complete two-dimensional, color flow and Doppler transthoracic echocardiogram is performed. 2. Left ventricular chamber dimension is normal. 3. Left ventricular systolic function is normal, estimated at 65-70. 4. The left ventricular diastolic function is normal. 5. E/e' 8 is minimally elevated. 6. There is mild mitral valve regurgitation. 7. No pulmonary hypertension, estimated pulmonary arterial systolic pressure is 24 mmHg. Left Ventricle E/e' 8 is minimally elevated. Left ventricular chamber dimension is normal. Left ventricular systolic function is normal, estimated at 65-70. The left ventricular diastolic function is normal. Right Ventricle Right ventricular chamber dimension is normal. Right ventricular systolic function is normal. Left Atria Left atrial chamber dimension is normal. Right Atria Right atrial chamber dimension is normal. Aortic Valve The aortic valve is trileaflet. There is no aortic valve stenosis. There is no aortic valve regurgitation. Pulmonic Valve There is no pulmonic regurgitation. Mitral Valve There is no mitral valve stenosis. There is mild mitral valve regurgitation. Tricuspid Valve There is no tricuspid valve regurgitation. No pulmonary hypertension, estimated pulmonary arterial systolic pressure is 24 mmHg. Pericardium/Pleural There is no pericardial effusion. Inferior Vena Cava Normal inferior vena cava with >50% collapse upon inspiration consistent with normal right atrial pressure, 5 mmHg. Aorta The aortic root size at the sinus of Valsalva is normal. Left Ventricular Outflow Tract Name Value Normal LVOT 2D LVOT Diameter 2.0 cm LVOT Doppler LVOT Peak Velocity 98 cm/s LVOT Peak Gradient 4 mmHg LVOT Mean Gradient 2 mmHg LVOT VTI 22 cm LVOT VTI/AV VTI Ratio 0.7 LVOT Stroke Volume 72 ml LVOT CO 4.8 l/min LVOT CI 2.8 l/min/m2 Pulmonic Valve Name Value Normal RVOT Doppler RVOT Peak Velocity 59 cm/s RVOT Peak Gradient 1 mmHg PV Doppler PV Peak Velocity 91 cm/s PV Peak Gradient 3 mmHg Mitral Valve Name Value Normal MV Diastolic Function MV E Peak Velocity 92 cm/s MV A Peak Velocity 58 cm/s MV E/A 1.6 MV Decel Time (PW) 177 ms Tricuspid Valve Name Value Normal TV Regurgitation Doppler TR Peak Velocity 219 cm/s TR Peak Gradient 19 mmHg Estimated PAP/RSVP RA Pressure 5 mmHg <=5 PA Systolic Pressure 24 mmHg <36 RV Systolic Pressure 24 mmHg <36 Aorta Name Value Normal Ascending Aorta Ao Root Diameter (MM) 2.6 cm Ao Root Diam Index (MM) 1.5 cm/m2 Aortic Valve Name Value Normal AV Doppler AV Peak Velocity 132 cm/s AV Peak Gradient 7 mmHg AV Mean Gradient 4 mmHg AV VTI 30 cm AV Area (Cont Eq VTI) 2.4 cm2 >=3.0 AV Area (Cont Eq Chidi) 2.4 cm2 AV DI (Chidi) 0.74 AV Regurgitation 2D LVOT Area 3.2 cm2 Ventricles Name Value Normal LV Dimensions 2D/MM IVS Diastolic Thickness (2D) 0.9 cm 0.6-1.0 IVS Diastole Thickness (MM) 0.7 cm 0.6-0.9 LVID Diastole (2D) 3.5 cm 3.8-5.2 LVID Diastole (MM) 4.3 cm 3.8-5.2 LVIW Diastolic Thickness (2D) 1.1 cm 0.6-0.9 LVIW Diastolic Thickness (MM) 0.8 cm 0.6-0.9 LVID Systole (2D) 1.8 cm 2.2-3.5 LVID Systole (MM) 2.3 cm 2.2-3.5 LVOT Diameter 2.0 cm LV Mass (2D Cubed) 98.32 g 67.00-162.00 LV Mass Index (2D Cubed) 57 g/m2 43-95 Relative Wall Thickness (2D) 0.61 <=0.42 LV Mass (MM Cubed) 96.38 g 67.00-162.00 LV Mass Index (MM Cubed) 56 g/m2 43-95 Relative Wall Thickness (MM) 0.39 LV Fractional Shortening/Ejection Fraction 2D/MM LV Fractional Shortening (2D) 48 % 27-45 LV Fractional Shortening (MM) 47 % 27-45 LV EF (MM Teichholz) 78 % LV EF (2D Teichholz) 80 % LV Diastolic Volume (4C MOD) 59 ml LV EF (4C MOD) 69 % LV Diastolic Volume (2C MOD) 58 ml LV EF (2C MOD) 72 % LV Diastolic Volume (BP MOD) 58 ml 46-106 LV Diastolic Volume Index (BP MOD) 34 ml/m2 29-61 LV Systolic Volume (BP MOD) 17 ml 14-42 LV Systolic Volume Index (BP MOD) 10 ml/m2 8-24 LV EF (BP MOD) 71 % 54-74 LV Diastolic Length (4C) 7.2 cm LV Systolic Length (4C) 5.7 cm LV Stroke Volume (4C MOD) 41 ml Atria Name Value Normal LA Dimensions LA Dimension (MM) 2.9 cm 2.7-3.8 LA Volume (4C A-L) 31 ml LA Volume (BP A-L) 38 ml RA Dimensions RA Systolic Major [place] Length (4C) 4.7 cm 2.2-2.8 RA Area (4C) 15.5 cm2 <=18.0 Report Signatures
== END 2024-09-06 12:47 | disposition home or self-care (01) ==
LOC: ANHCARD 12:48
PROVIDERS: PCP Family Medicine; Visit Provider Internal Medicine Cardiovascular Disease
DX: I34.0 Nonrheumatic mitral (valve) insufficiency (principal); R06.09 Other forms of dyspnea
CPT/HCPCS: 93306

== ENCOUNTER 2024-09-16 12:04 | Outpatient (CLI) | payer OTHER, SELFPAY ==
--- NOTE | ~2024-09-16 | XR_ITS ---
Thoracic spine: Clinical Indication: Radiculopathy AP and lateral views were performed. No fracture is seen. There is S-shaped scoliosis of the thoracolumbar spine. The intervertebral disc spaces are relatively well-preserved. Paravertebral soft tissues appear normal. Impression: S-shaped scoliosis. Reviewed, dictated and finalized at location . Impression: S-shaped scoliosis.
--- OUTSIDE RECORDS SUMMARY | 2024-09-16 12:07 | XMS_ITS | Clinical Summary ---
Author Organization [facility] Address [address], [address] [address] Phone Care Team Providers Care Jewelry Store Manager Name Role Phone Pedro Byrnes MD Primary Care Provider [phone] Medications polyethylene glycol (MIRALAX) Powder Mix the entire bottle with 64 oz of a clear liquid. Use as directed by the office for colonoscopy prep. 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
--- OUTSIDE RECORDS SUMMARY | 2024-09-16 12:07 | XMS_ITS | Clinical Summary ---
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
--- OUTSIDE RECORDS SUMMARY | 2024-09-16 12:07 | XMS_ITS | Clinical Summary ---
Author Organization [facility] Address [address] [place] [address] Care Team Providers Care Lead Manufacturing Engineer Name Role Phone Tequila Rodriguez MD Primary Care Provider Source Comments [facility],non-owned Affiliates and Associated Physician Practices is amultiple site organization consisting of ambulatory clinics and hospital sitesin [place], [place] and [place]. This disclosure is being madepursuant to the Care Everywhere program and may not contain all information available regarding this patient. Last updated 17.[facility] [employer] Allergies Active Allergy Reactions Criticality Noted Date [...] Active vitamin D, ergocalciferol, (DRISDOL) 1.25 MG (30559 UT) capsule TAKE 1 CAPSULE BY MOUTH [...] 08/19/2024 Telephone [facility] - Rheumatology [address] [place] [phone] Rishi Carlos MD Follow-up 08/16/2024 Telephone [facility] - Rheumatology [address] [place] [phone] Rishi Carlos MD Follow-up 08/08/2024 Orders Only [facility] - Rheumatology [address] [place] [phone] Reynaldo aCrlos, DO from Last 3 Months Immunizations Immunization [...] on file 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 Gender Identity Not on file Sexual Orientation Not on file Last Filed Vital Signs Vital Sign Reading Time Taken Comments Blood Pressure 115/76 01/30/2024 2:13 PM INNER TUBE TUBER MACHINE OPERATOR Pulse 60 01/30/2024 2:13 PM INNER TUBE TUBER MACHINE OPERATOR Temperature 36.5 C (97.7 F) 01/30/2024 2:13 PM INNER TUBE TUBER MACHINE OPERATOR Respiratory Rate 16 12/26/2016 1:10 PM CDT Oxygen Saturation 97% 01/30/2024 2:13 PM INNER TUBE TUBER MACHINE OPERATOR Inhaled Oxygen Concentration - - Weight 66.2 kg (146 lb) 01/30/2024 2:13 PM INNER TUBE TUBER MACHINE OPERATOR Height 163.8 cm (5' 4.5) 01/30/2024 2:13 PM INNER TUBE TUBER MACHINE OPERATOR Body Mass Index 24.67 01/30/2024 2:13 PM INNER TUBE TUBER MACHINE OPERATOR Plan of Treatment Health Maintenance Due Date [...] (1 - Tdap) 1980 PAP SMEAR 1982 PNEUMOCOCCAL VACCINE 50+ (1 of 1 - [...] YELLOW [facility] Appearance CLEAR CLEAR [facility] Specific [place]way UA 1.006 1.001 - 1.035 [facility] pH [...] elements seen were reported. Test Performed at: [facility] [address] [address] RYAN SHANE MD 08/08/2024 12:4 9 PM CDT 08/08/2024 12:50 PM CDT Reynaldo Carlos DO LAB - URINALYSIS ORDERABLES Final Result Performing Organization Address [email or web address] de Phone Number [address] [address] * C-REACTIVE PROTEIN (08/08/2024 12:49 PM CDT) C-Reactive Protein <5.0 <8.0 mg/L [facility] Comment: Test Performed at: [facility] [address] [address] RYAN SHANE MD 08/08/2024 12:4 9 PM CDT 08/08/2024 12:50 PM CDT Reynaldo Carlos DO LAB - CHEMISTRY ORDERABLES F inal Result Performing Organization Address [facility] [[email or web address]] de Phone Number [address] [address] * ERYTHROCYTE SEDIMENTATION RATE (08/08/2024 12:49 PM CDT) Erythrocyte Sedimentation Rate Westergren 5 < OR = 30 mm/h [facility] Comment: Test Performed at: [facility] [address] [address] RYAN SHANE MD 08/08/2024 12:4 9 PM CDT 08/08/2024 12:50 PM CDT Reynaldo Carlos DO LAB - HEMATOLOGY ORDERABLES Final Result Performing Organization Address [facility] [[email or web address]] de Phone Number [address] [address] * (ABNORMAL) CBC W/O DIFFERENTIAL (08/08/2024 12:49 [...] 12.5 fL [facility] Comment: Test Performed at: [facility] [address] [address] RYAN SHANE MD 08/08/2024 12:4 9 PM CDT 08/08/2024 12:50 PM CDT Reynaldo Carlos DO LAB - HEMATOLOGY ORDERABLES Final Result Performing Organization Address [facility] [[email or web address]] de Phone Number [address] [address] * CK BLOOD (08/08/2024 12:49 PM CDT) Pathologist [facility] CK 91 20 - 243 U/L [facility] Comment: Test Performed at: [facility] [address] [address] RYAN SHANE MD 08/08/2024 12:4 9 PM CDT 08/08/2024 12:50 PM CDT Reynaldo Carlos DO LAB - CHEMISTRY ORDERABLES F inal Result Performing Organization Address [facility] [[email or web address]] de Phone Number [facility] [address] [place] [address] * HEPATITIS C ANTIBODY (06/26/2014 3:02 PM CDT) Hepatitis C Antibody NON-REACTI VE NON-REACT MEGHNA [facility] ([facility]) Signal/Cutoff 0.01 <1.00 [facility] ([facility]) Comment: Test Performed at: [facility] [id number] [place] [address] WALLACE TAYLOR DO,MPH Blood specimen (specimen) BLOOD SPECIMEN / Unknown 06/26/2014 3:02 PM CDT 06/26/2014 3:03 PM CDT Narrative [facility] ([facility]) - 06/30/2014 12:00 PM CDT Copy to patient Copy to PCP, Amy Sky, fax:[phone] us Mayra Hurt MD LAB - CHEMISTRY ORDERABLES Ed ited Result - Final Performing Organization Address [facility] Co de Phone Number [facility] ([facility]) [address] from Last 3 Months or Most Recently Relevant to Health Maintenance Insurance [facility] Care Teams Lead Manufacturing Engineer Relationship Specialty Start Date End Date Tequila Rodriguez MD [address] [place] [phone] PCP - General 02/08/22
--- OUTSIDE RECORDS SUMMARY | 2024-09-16 12:07 | XMS_ITS | Referral Summary ---
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
== END 2024-09-16 12:05 | disposition home or self-care (01) ==
LOC: ANHASCIMG 12:06
PROVIDERS: PCP Family Medicine; Visit Provider Family Medicine
DX: M41.9 Scoliosis, unspecified (principal); M54.14 Radiculopathy, thoracic region
CPT/HCPCS: 72072

== ENCOUNTER 2024-10-02 10:07 | Outpatient (CLI) | payer OTHER, SELFPAY ==
--- OUTSIDE RECORDS SUMMARY | 2024-10-02 10:20 | XMS_ITS | Referral Summary ---
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 Care Teams Flatware Maker Relationship Specialty Start Date End Date Tequila Rodriguez MD PCP - General Family Practice 12/14/21
--- OUTSIDE RECORDS SUMMARY | 2024-10-02 10:20 | XMS_ITS | Clinical Summary ---
Author Organization [facility] Address [address], [address] [address] Phone Care Team Providers Care Head Sawyer Name Role Phone Pedro Byrnes MD Primary Care Provider [phone] Medications polyethylene glycol (MIRALAX) Powder Mix the entire bottle with 64 oz of a clear liquid. Use as directed by the office for colonoscopy prep. 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
--- OUTSIDE RECORDS SUMMARY | 2024-10-02 10:20 | XMS_ITS | Clinical Summary ---
Author Organization [facility] Address [address] [place] [address] Care Team Providers Care Counter Caser Name Role Phone Tequila Rodriguez MD Primary Care Provider Source Comments [facility],non-owned Affiliates and Associated Physician Practices is amultiple site organization consisting of ambulatory clinics and hospital sitesin [place], [place], [place] and [place]. This disclosure is being madepursuant to the Care Everywhere program and may not contain all information available regarding this patient. Last updated 17.[facility] [employer] Allergies Active Allergy Reactions Criticality Noted Date [...] Active vitamin D, ergocalciferol, (DRISDOL) 1.25 MG (67635 UT) capsule TAKE 1 CAPSULE BY MOUTH [...] 08/19/2024 Telephone [facility] [address] [place] [phone] Rishi Carlos MD Follow-up 08/16/2024 Telephone [facility] [address] [place] [phone] Rishi Carlos MD Follow-up 08/08/2024 Orders Only [facility] [address] [place] [phone] Reynaldo Carlos, DO from Last 3 Months [...] on file 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 Gender Identity Not on file Sexual Orientation Not on file Last Filed Vital Signs Vital Sign Reading Time Taken Comments Blood Pressure 115/76 01/30/2024 2:13 PM ANODE MACHINE OPERATOR Pulse 60 01/30/2024 2:13 PM ANODE MACHINE OPERATOR Temperature 36.5 C (97.7 F) 01/30/2024 2:13 PM ANODE MACHINE OPERATOR Respiratory Rate 16 12/26/2016 1:10 PM CDT Oxygen Saturation 97% 01/30/2024 2:13 PM ANODE MACHINE OPERATOR Inhaled Oxygen Concentration - - Weight 66.2 kg (146 lb) 01/30/2024 2:13 PM ANODE MACHINE OPERATOR Height 163.8 cm (5' 4.5) 01/30/2024 2:13 PM ANODE MACHINE OPERATOR Body Mass Index 24.67 01/30/2024 2:13 PM ANODE MACHINE OPERATOR Plan of Treatment Health Maintenance [...] DEPRESSION SCREENING 03/20/2024 10/04/2022, 10/06/19 INFLUENZA VACCINE (#1) 2024 2, 11/12/2019, 11/09/2018, Additional history exists Respiratory Syncytial [...] YELLOW [facility] Appearance CLEAR CLEAR [facility] Specific [place] UA 1.006 1.001 - 1.035 [facility] pH [...] elements seen were reported. Test Performed at: [facility] [address] RYAN SHANE MD 08/08/2024 12:4 9 PM CDT 08/08/2024 12:50 PM CDT Reynaldo Carlos DO LAB - URINALYSIS ORDERABLES Final Result Performing Organization Address [facility] de Phone Number [address] [address] * C-REACTIVE PROTEIN (08/08/2024 12:49 PM CDT) C-Reactive Protein <5.0 <8.0 mg/L [facility] Comment: Test Performed at: [facility] [address] RYAN SHANE MD 08/08/2024 12:4 9 PM CDT 08/08/2024 12:50 PM CDT Reynaldo Carlos DO LAB - CHEMISTRY ORDERABLES F inal Result Performing Organization Address [facility] de Phone Number [address] [address] * ERYTHROCYTE SEDIMENTATION RATE (08/08/2024 12:49 PM CDT) Erythrocyte Sedimentation Rate Westergren 5 < OR = 30 mm/h [facility] Comment: Test Performed at: [facility] [address] RYAN SHANE MD 08/08/2024 12:4 9 PM CDT 08/08/2024 12:50 PM CDT Reynaldo Carlos DO LAB - HEMATOLOGY ORDERABLES Final Result Performing Organization Address [facility] de Phone Number [address] [address] * (ABNORMAL) CBC W/O DIFFERENTIAL (08/08/2024 12:49 [...] 12.5 fL [facility] Comment: Test Performed at: [facility] [address] RYAN SHANE MD 08/08/2024 12:4 9 PM CDT 08/08/2024 12:50 PM CDT Reynaldo Carlos DO LAB - HEMATOLOGY ORDERABLES Final Result Performing Organization Address [facility] de Phone Number [address] [address] * CK BLOOD (08/08/2024 12:49 PM CDT) Pathologist [facility] CK 91 20 - 243 U/L [facility] Comment: Test Performed at: [facility] [address] RYAN SHANE MD 08/08/2024 12:4 9 PM CDT 08/08/2024 12:50 PM CDT Reynaldo Carlos DO LAB - CHEMISTRY ORDERABLES F inal Result Performing Organization Address [facility] de Phone Number [facility] [address] [place] [address] * HEPATITIS C ANTIBODY (06/26/2014 3:02 PM CDT) Hepatitis C Antibody NON-REACTI VE NON-REACT MEGHNA [facility] ([facility]) Signal/Cutoff 0.01 <1.00 [facility] ([facility]) Comment: Test Performed at: [facility] [id number] [place] [phone] WALLACE TAYLOR DO,MPH Blood specimen (specimen) BLOOD SPECIMEN / Unknown 06/26/2014 3:02 PM CDT 06/26/2014 3:03 PM CDT Narrative [facility] ([facility]) - 06/30/2014 12:00 PM CDT Copy to patient Copy to PCP, Amy Sky, fax:[phone] us Mayra Hurt MD LAB - CHEMISTRY ORDERABLES Ed ited Result - Final Performing Organization Address [facility] Co de Phone Number [facility] ([place]) [address] from Last 3 Months or Most Recently Relevant to Health Maintenance Insurance [facility] Care Teams Counter Caser Relationship Specialty Start Date End Date Tequila Rodriguez MD [address] [place] [phone] PCP - General 02/08/22
--- OUTSIDE RECORDS SUMMARY | 2024-10-02 10:20 | XMS_ITS | Clinical Summary ---
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
[2024-10-02 11:20] LABS: Hematocrit 38.0 % (37.0-47.0); Hemoglobin 12.7 g/dL (12.0-15.0); Mean Corpuscular HGB Conc 33.4 g/dl (32-36); Mean Corpuscular Hemoglobin 31.5 pg (26-34); Mean Corpuscular Volume 94.3 fl (80-100); Platelet Count Result 251 k/mm3 (150-375); Red Blood Count 4.03 M/mm3 (4.2-5.4); White Blood Count 3.9 K/mm3 (4.5-10.0)
[2024-10-02 11:35] LABS: Alanine Aminotransferase 22 U/L (6-35); Albumin Level 4.2 g/dL (3.5-5.1); Alkaline Phosphatase 38 U/L (38-126); Anion Gap 4 mmol/L (4-12); Aspartate Amino Transferase 38 U/L (14-36); Bilirubin,Total 0.4 mg/dL (0.2-1.3); Blood Urea Nitrogen 10 mg/dL (7-17); CRP < 0.5 mg/dL (<1.0); Calcium 9.8 mg/dL (8.4-10.2); Carbon Dioxide 29 mmol/L (22-30); Chloride 102 mmol/L (98-107); Estimated Glomerular Filt Rate > 60; Glucose 75 mg/dL (65-110); Lipase 84 U/L (23-300); Potassium 4.0 mmol/L (3.4-5.0); Sodium 135 mmol/L (137-145); Total Protein 7.2 g/dL (6.3-8.2)
== END 2024-10-02 10:08 | disposition home or self-care (01) ==
LOC: ANHLAB 10:09
PROVIDERS: PCP Family Medicine; Visit Provider Nurse Practitioner Family
DX: K52.9 Noninfective gastroenteritis and colitis, unspecified (principal); K21.9 Gastro-esophageal reflux disease without esophagitis
CPT/HCPCS: 36415; 80053; 83690; 85027; 85652; 86140

== ENCOUNTER 2024-10-21 13:12 | Outpatient (CLI) | payer OTHER, SELFPAY ==
--- OUTSIDE RECORDS SUMMARY | 2024-10-21 13:18 | XMS_ITS | Clinical Summary ---
Author Organization [facility] Address [address] [facility] [place] [address] Care Team Providers Care Thread Trimmer Name Role Phone Tequila Rodriguez MD Primary Care Provider Source Comments [facility],non-owned Affiliates and Associated Physician Practices is amultiple site organization consisting of ambulatory clinics and hospital sitesin [place], [place] and [place]. This disclosure is being madepursuant to the Care Everywhere program and may not contain all information available regarding this patient. Last updated 17.[facility] [email or web address] Allergies Active Allergy Reactions Criticality Noted Date [...] Active vitamin D, ergocalciferol, (DRISDOL) 1.25 MG (60131 UT) capsule TAKE 1 CAPSULE BY MOUTH [...] 08/19/2024 Telephone [facility] [address] [place] [phone] Rishi Carlos MD Follow-up 08/16/2024 Telephone [facility] [address] [place] [phone] Rishi Carlos MD Follow-up 08/08/2024 Orders Only [facility] [address] [place] [phone] Reynaldo Carlos, DO from Last 3 Months [...] on file Legal Sex Female 6:28 AM [facility] Gender Identity Not on file Sexual Orientation Not on file Last Filed Vital Signs Vital Sign Reading Time Taken Comments Blood Pressure 115/76 01/30/2024 2:13 PM [facility] Pulse 60 01/30/2024 2:13 PM [facility] Temperature 36.5 C (97.7 F) 01/30/2024 2:13 PM [facility] Respiratory Rate 16 12/26/2016 1:10 PM CDT Oxygen Saturation 97% 01/30/2024 2:13 PM [facility] Inhaled Oxygen Concentration - - Weight 66.2 kg (146 lb) 01/30/2024 2:13 PM [facility] Height 163.8 cm (5' 4.5) 01/30/2024 2:13 PM [facility] Body Mass Index 24.67 01/30/2024 2:13 PM [facility] Plan of Treatment Health Maintenance Due Date [...] YELLOW [facility] Appearance CLEAR CLEAR [facility] Specific [place] UA 1.006 1.001 - 1.035 [facility] pH [...] elements seen were reported. Test Performed at: [facility] [address] RYAN SHANE MD 08/08/2024 12:4 9 PM CDT 08/08/2024 12:50 PM CDT Reynaldo Carlos DO LAB - URINALYSIS ORDERABLES Final Result Performing Organization Address [facility] de Phone Number [address] [address] * C-REACTIVE PROTEIN (08/08/2024 12:49 PM CDT) C-Reactive Protein <5.0 <8.0 mg/L [facility] Comment: Test Performed at: [facility] [address] RYAN SHANE MD 08/08/2024 12:4 9 PM CDT 08/08/2024 12:50 PM CDT Reynaldo Carlos DO LAB - CHEMISTRY ORDERABLES F inal Result Performing Organization Address [facility] de Phone Number [address] [address] * ERYTHROCYTE SEDIMENTATION RATE (08/08/2024 12:49 PM CDT) Erythrocyte Sedimentation Rate Westergren 5 < OR = 30 mm/h [facility] Comment: Test Performed at: [facility] [address] RYAN SHANE MD 08/08/2024 12:4 9 PM CDT 08/08/2024 12:50 PM CDT Reynaldo Carlos DO LAB - HEMATOLOGY ORDERABLES Final Result Performing Organization Address [facility] de Phone Number [address] [address] * (ABNORMAL) CBC W/O DIFFERENTIAL (08/08/2024 12:49 [...] 12.5 fL [facility] Comment: Test Performed at: [facility] [address] RYAN SHANE MD 08/08/2024 12:4 9 PM CDT 08/08/2024 12:50 PM CDT Reynaldo Carlos DO LAB - HEMATOLOGY ORDERABLES Final Result Performing Organization Address [facility] de Phone Number [address] [address] * CK BLOOD (08/08/2024 12:49 PM CDT) Pathologist [facility] CK 91 20 - 243 U/L [facility] Comment: Test Performed at: [facility] [address] RYAN SHANE MD 08/08/2024 12:4 9 PM CDT 08/08/2024 12:50 PM CDT Reynaldo Carlos DO LAB - CHEMISTRY ORDERABLES F inal Result Performing Organization Address [facility] de Phone Number [facility] [address] [place] [address] * HEPATITIS C ANTIBODY (06/26/2014 3:02 PM CDT) Hepatitis C Antibody NON-REACTI VE NON-REACT MEGHNA [facility] ([facility]) Signal/Cutoff 0.01 <1.00 [facility] ([facility]) Comment: Test Performed at: [facility] [id number] [place] [phone] WALLACE TAYLOR DO,MPH Blood specimen (specimen) BLOOD SPECIMEN / Unknown 06/26/2014 3:02 PM CDT 06/26/2014 3:03 PM CDT Narrative [facility] ([facility]) - 06/30/2014 12:00 PM CDT Copy to patient Copy to PCP, Amy Sky, fax:[phone] us Mayra Hurt MD LAB - CHEMISTRY ORDERABLES Ed ited Result - Final Performing Organization Address [facility] Co de Phone Number [facility] ([facility]) [address] from Last 3 Months or Most Recently Relevant to Health Maintenance Insurance [facility] Care Teams Thread Trimmer Relationship Specialty Start Date End Date Tequila Rodriguez MD [address] [place] [phone] PCP - General 02/08/22
--- OUTSIDE RECORDS SUMMARY | 2024-10-21 13:18 | XMS_ITS | Clinical Summary ---
Author Organization [facility] Address [address], [address] [address] Phone Care Team Providers Care Manager Shift Name Role Phone Pedro Byrnes MD Primary Care Provider [phone] Medications polyethylene glycol (MIRALAX) Powder Mix the entire bottle with 64 oz of a clear liquid. Use as directed by the office for colonoscopy prep. 255 g 8 Active Social History Tobacco Use Types Packs/Day Years Used Date Smoking Tobacco: Never Assessed Comments Unknown Sex and Gender Information Value Date Recorded Sex Assigned at Not on file Legal Sex Female 2:30 PM LEGAL RECOVERY SPECIALIST Gender Identity Not on file Sexual Orientation Not on file Plan of Treatment Health Maintenance Due Date Last Done Comments Hepatitis C Virus (HCV) Screening 1961 TdaP Immunization 1961 Pap Smear 1982 Cervical Cancer Screening (CCS) 12/09/1991 HPV/Cotest 12/09/1991 Cologuard 2006 Immunochemical Fecal Occult Blood 2006 Pneumococcal Immunization (5 0+ years) (1 of 1 - PCV) 12/09/2011 Zoster Immunization (1 of 2) 12/09/2011 Colonoscopy 08/09/2022 08/09/2017 Colorectal Cancer Screening 08/09/2022 SARS-COV-2 Immunization ( - season) 2023 Influenza Immunization (#1) 2024 Respiratory Syncytial Virus (RSV) Immunization (Adult) (1 - 1-dose 75+ series) 2036 Hepatitis B Immunization Aged Out No longer eligible based on patient's age to complete this topic Human Papillomavirus (HPV) Immunization Aged Out No longer eligible b ased on patient's age to complete this topic [...] Insurance [employer] Care Teams Manager Shift Relationship Specialty Start Date End Date Pedro Byrnes MD [address] [place] [address] PCP - General Family Medicine 05/03/17
--- OUTSIDE RECORDS SUMMARY | 2024-10-21 13:18 | XMS_ITS | Referral Summary ---
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
--- OUTSIDE RECORDS SUMMARY | 2024-10-21 13:18 | XMS_ITS | Clinical Summary ---
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
[2024-10-23 13:09] LABS: Pancreatic Elastase, Fecal >800 (>200)
[2024-10-24 14:08] LABS: Calprotectin, Fecal 91 ug/g (0-120)
== END 2024-10-21 13:13 | disposition home or self-care (01) ==
LOC: ANHLAB 13:12
PROVIDERS: PCP Family Medicine; Visit Provider Nurse Practitioner Family
DX: K52.9 Noninfective gastroenteritis and colitis, unspecified (principal); R14.0 Abdominal distension (gaseous); K21.9 Gastro-esophageal reflux disease without esophagitis
CPT/HCPCS: 82653; 83993; 87045; 87427; 87493

== ENCOUNTER 2024-11-04 01:19 | Day surgery (SDC) | payer OTHER, SELFPAY ==
[2024-10-18 12:26] VITALS: BMI 24.4
--- OUTSIDE RECORDS SUMMARY | 2024-11-04 01:21 | XMS_ITS | Clinical Summary ---
Author Organization [facility] Address [address], [address] [address] Phone Care Team Providers Care Nuisance Wildlife Control Operator Name Role Phone Pedro Byrnes MD Primary Care Provider Medications polyethylene glycol (MIRALAX) Powder Mix the entire bottle with 64 oz of a clear liquid. Use as directed by the office for colonoscopy prep. 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
--- OUTSIDE RECORDS SUMMARY | 2024-11-04 01:21 | XMS_ITS | Clinical Summary ---
Author Organization [facility] Address [address] [place] [address] Care Team Providers Care Scouring Machine Tender Name Role Phone Tequila Rodriguez MD Primary Care Provider Source Comments [facility],non-owned Affiliates and Associated Physician Practices is amultiple site organization consisting of ambulatory clinics and hospital sitesin [place], [place], [place] and [place]. This disclosure is being madepursuant to the Care Everywhere program and may not contain all information available regarding this patient. Last updated 17.[facility] Allergies Active Allergy Reactions Criticality Noted Date [...] Active vitamin D, ergocalciferol, (DRISDOL) 1.25 MG (04109 UT) capsule TAKE 1 CAPSULE BY MOUTH [...] 08/19/2024 Telephone [facility] [address] [place] [phone] Rishi Carlos MD Follow-up 08/16/2024 Telephone [facility] [address] [place] [phone] Rishi Carlos MD Follow-up 08/08/2024 Orders Only [facility] [address] [place] [phone] Reynaldo Carlos, DO from Last 3 Months [...] on file 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 Gender Identity Not on file Sexual Orientation Not on file Last Filed Vital Signs Vital Sign Reading Time Taken Comments Blood Pressure 115/76 01/30/2024 2:13 PM GRAPHITE GRINDER Pulse 60 01/30/2024 2:13 PM GRAPHITE GRINDER Temperature 36.5 C (97.7 F) 01/30/2024 2:13 PM GRAPHITE GRINDER Respiratory Rate 16 12/26/2016 1:10 PM CDT Oxygen Saturation 97% 01/30/2024 2:13 PM GRAPHITE GRINDER Inhaled Oxygen Concentration - - Weight 66.2 kg (146 lb) 01/30/2024 2:13 PM GRAPHITE GRINDER Height 163.8 cm (5' 4.5) 01/30/2024 2:13 PM GRAPHITE GRINDER Body Mass Index 24.67 01/30/2024 2:13 PM GRAPHITE GRINDER Plan of Treatment Health Maintenance Due Date [...] YELLOW [facility] Appearance CLEAR CLEAR [facility] Specific [place] UA 1.006 1.001 - 1.035 [facility] pH [...] elements seen were reported. Test Performed at: [facility] [address] RYAN SHANE MD 08/08/2024 12:4 9 PM CDT 08/08/2024 12:50 PM CDT Reynaldo Carlos DO LAB - URINALYSIS ORDERABLES Final Result Performing Organization Address [facility] de Phone Number [address] [address] * C-REACTIVE PROTEIN (08/08/2024 12:49 PM CDT) C-Reactive Protein <5.0 <8.0 mg/L [facility] Comment: Test Performed at: [facility] [address] RYAN SHANE MD 08/08/2024 12:4 9 PM CDT 08/08/2024 12:50 PM CDT Reynaldo Carlos DO LAB - CHEMISTRY ORDERABLES F inal Result Performing Organization Address [facility] de Phone Number [address] [address] * ERYTHROCYTE SEDIMENTATION RATE (08/08/2024 12:49 PM CDT) Erythrocyte Sedimentation Rate Westergren 5 < OR = 30 mm/h [facility] Comment: Test Performed at: [facility] [address] RYAN SHANE MD 08/08/2024 12:4 9 PM CDT 08/08/2024 12:50 PM CDT Reynaldo Carlos DO LAB - HEMATOLOGY ORDERABLES Final Result Performing Organization Address [facility] de Phone Number [address] [address] * (ABNORMAL) CBC W/O DIFFERENTIAL (08/08/2024 12:49 [...] 12.5 fL [facility] Comment: Test Performed at: [facility] [address] RYAN SHANE MD 08/08/2024 12:4 9 PM CDT 08/08/2024 12:50 PM CDT Reynaldo Carlos DO LAB - HEMATOLOGY ORDERABLES Final Result Performing Organization Address [facility] de Phone Number [address] [address] * CK BLOOD (08/08/2024 12:49 PM CDT) Pathologist [facility] CK 91 20 - 243 U/L [facility] Comment: Test Performed at: [facility] [address] RYAN SHANE MD 08/08/2024 12:4 9 PM CDT 08/08/2024 12:50 PM CDT Reynaldo Carlos DO LAB - CHEMISTRY ORDERABLES F inal Result Performing Organization Address [facility] de Phone Number [facility] [address] [place] [address] * HEPATITIS C ANTIBODY (06/26/2014 3:02 PM CDT) Hepatitis C Antibody NON-REACTI VE NON-REACT MEGHNA [facility] ([facility]) Signal/Cutoff 0.01 <1.00 [facility] ([facility]) Comment: Test Performed at: [facility] [id number] [place] [id number] WALLACE TAYLOR DO,MPH Blood specimen (specimen) BLOOD SPECIMEN / Unknown 06/26/2014 3:02 PM CDT 06/26/2014 3:03 PM CDT Narrative [facility] ([facility]) - 06/30/2014 12:00 PM CDT Copy to patient Copy to PCP, Amy Sky, fax:[phone] us Mayra Hurt MD LAB - CHEMISTRY ORDERABLES Ed ited Result - Final Performing Organization Address [facility] Co de Phone Number [facility] ([facility]) [address] from Last 3 Months or Most Recently Relevant to Health Maintenance Insurance [facility] Care Teams Scouring Machine Tender Relationship Specialty Start Date End Date Tequila Rodriguez MD [address] [place] [phone] PCP - General 02/08/22
--- OUTSIDE RECORDS SUMMARY | 2024-11-04 01:21 | XMS_ITS | Clinical Summary ---
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
--- NOTE | 2024-11-04 12:50 | P.PNAN_ITS ---
Anes - Initial Pre Proc Eval Procedure: Operation Date: 11/04/24 14:15 Proposed Procedures p EGD & Diagnostic Colonoscopy - Donnie Osorio MD Date/Time: 11/04/24 12:50 Surgeon: Donnie Osorio MD Pre Op Diagnosis: Gastro-esophageal reflux disease without esophagit Patient Data Age: 63 Gender: F Height: 1.63 m Weight: 64.5 kg Allergies Allergy/AdvReac Type Severity Reaction Status Date / Time progesterone Allergy Unknown shortness Verified 10/18/24 12:19 of breath alendronate sodium AdvReac Mild Itching Verified 10/18/24 12:19 prednisolone AdvReac Mild Anxiety Verified 10/18/24 12:19 Home Medications ?Medication ?Instructions ?Recorded ?Confirmed ?Type loratadine 10 mg tablet (Claritin) 10 mg PO DAILY 07/02/20 10/18/24 History calcium 600 mg (as carbonate)-vit 1 tablet PO BID #180 tabs 11/24/22 10/18/24 Rx D3 20 mcg (800 unit) chewable tablet (Caltrate plus D) shower chair #1 ea 02/27/24 10/18/24 Rx methocarbamol 750 mg tablet See Rx Instructions .Route 05/17/24 10/18/24 Rx .COMPLEX #90 tabs amitriptyline 25 mg tablet 25 mg PO QHS #60 tabs 06/24/24 10/18/24 Rx pregabalin 75 mg capsule 75 mg PO TID #90 caps 06/24/24 10/18/24 Rx magnesium oxide 400 mg (241.3 mg See Rx Instructions .Route 06/25/24 10/18/24 Rx magnesium) tablet .COMPLEX #90 ea fluticasone propionate 50 1 spray intranasal DAILY PRN 08/08/24 10/18/24 Rx mcg/actuation nasal allergy symptoms #16 grams spray,suspension (Flonase Allergy Relief) diclofenac sodium 75 mg 75 mg PO BID 09/16/24 10/18/24 History tablet,delayed release omeprazole 20 mg capsule,delayed 20 mg PO BID 1 month #60 caps 10/02/24 10/18/24 Rx release ezetimibe 10 mg tablet See Rx Instructions .Route 10/09/24 10/18/24 Rx .COMPLEX #90 tabs rosuvastatin 40 mg tablet See Rx Instructions .Route 10/09/24 10/18/24 Rx .COMPLEX #90 tabs benzonatate 100 mg capsule 100 mg PO HS PRN cough 10/18/24 10/18/24 History ezetimibe 10 mg tablet (Zetia) 10 mg PO DAILY 10/18/24 10/18/24 History Patient hx anesthesia problems: none Family hx anesthesia problems: none Results Review: All pre-operative results and documents have been reviewed as part of the pre- operative evaluation. [facility] Past Medical History Medical History Hiatal hernia Epigastric pain Colitis Peripheral neuropathy GERD without esophagitis Seasonal allergies Adenomatous colon polyp Pelvic congestion syndrome Chronic hip pain, bilateral Chronic neck and back pain Fibromyalgia Mixed hyperlipidemia Osteoporosis Primary osteoarthritis, unspecified site Surgical History Surgical History History of cervical spinal surgery 2003 Family History Family History Father Hypertension Cerebrovascular accident Other Family history of coronary artery disease Family history of elevated blood lipids Social History Social History Social History: Caffeine- daily Smoking packs per day: 0 Smoking cigarettes per day: 0.0 Years smoked: 0 Smoking pack-years: 0.00 Smoking status: Never smoker Second hand tobacco smoke exposure: No Alcohol intake: never Substance use: never Substance use type: does not use Do You Feel Safe in your Home?: Yes Lack of Transportation: No Lack of Food: Sometimes True Current Housing: I Have Housing Concerned About Future Housing: Decline to Answer Difficulty Paying Gas/Electric Bills: No Difficulty Paying for Meds: Decline to Answer Currently Unemployed: Decline to Answer Education: Decline to Answer Difficulty w/ Childcare or Family Care: No Living arrangements: alone Gender identity (if verbalized by the patient): Female Spiritual care concerns: No Anes - Eval Final PreProcedure Day of Procedure 11/04/24 12:50 Patient weight: normal Heart: regular rate and rhythm Lungs: clear to auscultation Airway: Mallampati scale class II Neurological: alert and oriented Last oral intake: >/= 8 hours ASA classification: III Emergent: no Anesthetic plan: proceed Anesthesia type and monitoring: general GIVS and standard monitoring Results Review: All pre-operative results and documents have been reviewed as part of the pre- operative evaluation. Informed Consent: The patient's anesthetic plan and its attendant risks and benefits were discussed with the patient/family/POA. Questions were solicited and answers provided to the satisfaction of the patient/family/POA.
[2024-11-04 13:03] VITALS: BP 119/51; PULSE 63; RESP 18; TEMP 36.4; O2SAT 100
[2024-11-04] MEDS: LACTATED RINGERS 1,000 ML 150 ML IV CONT (13:07)
[2024-11-04] MEDS: SIMETHICONE ORAL SUSPENSION 20 MG/0.3 ML 30 ML BOTTLE 1.8 ML PO (13:13)
--- NOTE | 2024-11-04 13:31 | PM.IMHP ---
H&P: HPI History of Present Illness Date/Time: 11/04/24 13:31 Chief Complaint: GERD-history of colon polyps Narrative: the patient has a longstanding history of GERD, partially controlled. Her last EGD was in 2021, finding a Schatzki ring which was dilated. She currently endorses occasional dysphagia. In addition, her last colonoscopy was in January 2022, at the same time of her EGD, no polyps were found. Because of a history of polyps, she was recommended to have a colonoscopy in 5 years and she is currently with referred for EGD and colonoscopy. Review of Systems Review of Systems: All systems reviewed & are unremarkable except as noted in HPI and below PMFSH Past Medical History Medical History Hiatal hernia Epigastric pain Colitis Peripheral neuropathy GERD without esophagitis Seasonal allergies Adenomatous colon polyp Pelvic congestion syndrome Chronic hip pain, bilateral Chronic neck and back pain Fibromyalgia Mixed hyperlipidemia Osteoporosis Primary osteoarthritis, unspecified site Surgical History Surgical History History of cervical spinal surgery 2003 Family History Family History Father Hypertension Cerebrovascular accident Other Family history of coronary artery disease Family history of elevated blood lipids Social History Social History Social History: Caffeine- daily Smoking packs per day: 0 Smoking cigarettes per day: 0.0 Years smoked: 0 Smoking pack-years: 0.00 Smoking status: Never smoker Second hand tobacco smoke exposure: No Alcohol intake: never Substance use: never Substance use type: does not use Do You Feel Safe in your Home?: Yes Lack of Transportation: No Lack of Food: Sometimes True Current Housing: I Have Housing Concerned About Future Housing: Decline to Answer Difficulty Paying Gas/Electric Bills: No Difficulty Paying for Meds: Decline to Answer Currently Unemployed: Decline to Answer Education: Decline to Answer Difficulty w/ Childcare or Family Care: No Living arrangements: alone Gender identity (if verbalized by the patient): Female Spiritual care concerns: No Meds Home Medications and Allergies Home Medications ?Medication ?Instructions ?Recorded ?Confirmed ?Type loratadine 10 mg tablet (Claritin) 10 mg PO DAILY 07/02/20 11/04/24 History calcium 600 mg (as carbonate)-vit 1 tablet PO BID #180 tabs 11/24/22 11/04/24 Rx D3 20 mcg (800 unit) chewable tablet (Caltrate plus D) shower chair #1 ea 02/27/24 10/18/24 Rx methocarbamol 750 mg tablet See Rx Instructions .Route 05/17/24 11/04/24 Rx .COMPLEX #90 tabs amitriptyline 25 mg tablet 25 mg PO QHS #60 tabs 06/24/24 11/04/24 Rx pregabalin 75 mg capsule 75 mg PO TID #90 caps 06/24/24 11/04/24 Rx magnesium oxide 400 mg (241.3 mg See Rx Instructions .Route 06/25/24 11/04/24 Rx magnesium) tablet .COMPLEX #90 ea fluticasone propionate 50 1 spray intranasal DAILY PRN 08/08/24 10/18/24 Rx mcg/actuation nasal allergy symptoms #16 grams spray,suspension (Flonase Allergy Relief) diclofenac sodium 75 mg 75 mg PO BID 09/16/24 11/04/24 History tablet,delayed release omeprazole 20 mg capsule,delayed 20 mg PO BID 1 month #60 caps 10/02/24 11/04/24 Rx release ezetimibe 10 mg tablet See Rx Instructions .Route 10/09/24 11/04/24 Rx .COMPLEX #90 tabs rosuvastatin 40 mg tablet See Rx Instructions .Route 10/09/24 11/04/24 Rx .COMPLEX #90 tabs benzonatate 100 mg capsule 100 mg PO HS PRN cough 10/18/24 10/18/24 History ezetimibe 10 mg tablet (Zetia) 10 mg PO DAILY 10/18/24 11/04/24 History Allergies Allergy/AdvReac Type Severity Reaction Status Date / Time progesterone Allergy Unknown shortness Verified 11/04/24 13:01 of breath alendronate sodium AdvReac Mild Itching Verified 11/04/24 13:01 prednisolone AdvReac Mild Anxiety Verified 11/04/24 13:01 Vital Signs Vital Signs - 24 hr 11/04/24 13:03 Temperature 97.6 F Pulse Rate 63 Respiratory Rate 18 Blood Pressure 119/51 L Pulse Oximetry 100 Oxygen Delivery Room Air Exam Const: General: cooperative and healthy appearing Resp: Effort & Inspection: normal respiratory effort and able to speak in complete sentences Auscultation: clear to auscultation bilaterally Cardio: Rate: regular rate Rhythm: regular rhythm GI: Inspection: normal to inspection GI Palp: No No hepatosplenomegaly present Auscultation: normal bowel sounds Rectal Exam: deferred Skin: General skin exam: normal color Psych: Appearance: grossly normal Mental Status: mental status grossly normal Assessment and Plan Assessment and plan (1) Hiatal hernia: Code(s): K44.9 - Diaphragmatic hernia without obstruction or gangrene Status: Acute Assessment and Plan: The patient is deemed a good candidate for the procedures. Consent signed. Will proceed. (2) History of colonic polyps: Code(s): Z86.0100 - Personal history of colon polyps, unspecified Status: Acute
--- NOTE | 2024-11-04 13:52 | SUR.OPER ---
EGD end 1347 COLONOSCOPY START 1357
--- NOTE | 2024-11-04 13:59 | S_PTH ---
PATIENT: Sarah Quintana LOC: [facility] U#:[id number] AGE/SX: 63/F ROOM: RE11/04/[address]: Donnie Osorio MD : 1960 BED: DIS: 11/04/2024 SPEC #: [id number] RECD: 11/05/24 08:06 STATUS: ANN REAve #: [id number] KHAI: 11/04/24 13:[address]: Donnie Osorio DEPT: [facility] Surgical RECD BY: Alberto Khan ENTERED: 11/05/24 08:07 SP TYPE: Surgical OTHR DR: Tequila Rodriguez MD Tissues: A - Gastric Biopsy B - Gastric Biopsy Procedures: Hematoxylin and Eosin Stain Gross and Microscopic Level 4
[2024-11-04 14:08] VITALS: BP 89/47; PULSE 63; RESP 16; O2SAT 100
[2024-11-04 14:18] VITALS: BP 92/52; PULSE 63; RESP 17; O2SAT 99
[2024-11-04 14:28] VITALS: BP 115/65; PULSE 60; RESP 17; O2SAT 100
== END 2024-11-04 14:52 | disposition home or self-care (01) ==
PROVIDERS: PCP Family Medicine; Visit Provider Internal Medicine Gastroenterology
PROC: 0DJ08ZZ Inspection of Upper Intestinal Tract, Via Natural or Artificial Opening Endoscopic (ICD-10-PCS; CPT 45378; principal; 2024-11-04 14:15)
DX: Z12.11 Encounter for screening for malignant neoplasm of colon (principal); K21.9 Gastro-esophageal reflux disease without esophagitis; K64.8 Other hemorrhoids; K44.9 Diaphragmatic hernia without obstruction or gangrene; K29.30 Chronic superficial gastritis without bleeding; M79.7 Fibromyalgia; E78.2 Mixed hyperlipidemia; M81.0 Age-related osteoporosis without current pathological fracture; M19.91 Primary osteoarthritis, unspecified site; G89.29 Other chronic pain; M25.552 Pain in left hip; M25.551 Pain in right hip; Z86.0100 Personal history of colon polyps, unspecified; Z98.1 Arthrodesis status; Z82.49 Family history of ischemic heart disease and other diseases of the circulatory system
CPT/HCPCS: 43239; 45378; 88305; J2003; J2704; J7120

== ENCOUNTER 2025-01-17 15:43 | Outpatient (CLI) | payer OTHER, SELFPAY ==
--- NOTE | ~2025-01-17 | MM_ITS ---
EXAMINATION: MM screening indra BI w ciara HISTORY: Screening TECHNIQUE: Craniocaudal and mediolateral oblique 3-D tomosynthesis images were obtained and synthetic 2-D images were generated. CAD analysis was submitted and interpreted. COMPARISON: Comparison to multiple prior studies sequentially, with oldest reviewed study dated , 05/14/2010 BREAST PARENCHYMAL COMPOSITION: The breasts are heterogeneously dense, which may obscure small masses. FINDINGS: There is no evidence of suspicious mass, calcification, or architectural distortion to suggest malignancy in either breast. IMPRESSION: 1. No mammographic evidence of malignancy. 2. Recommend routine screening mammography in one year. BI-RADS Category 1: Negative Reviewed, dictated and finalized at location B. [facility]
== END 2025-01-17 15:44 | disposition home or self-care (01) ==
LOC: ANHFOHIMG 15:51
PROVIDERS: PCP Family Medicine; Visit Provider Family Medicine
DX: Z12.31 Encounter for screening mammogram for malignant neoplasm of breast (principal)
CPT/HCPCS: 77063; 77067

== ENCOUNTER 2025-02-21 16:43 | Emergency (ER) | payer OTHER, SELFPAY ==
--- NOTE | ~2025-02-21 | CT_ITS ---
EXAMINATION: CT brain wo con DATE: 02/21/2025 19:08 INDICATION: Headache TECHNIQUE: Computed tomography (CT) of the head was performed without intravenous contrast. The dose-length product was 605.33 mGy-cm. COMPARISON: MRI brain dated 05/12/2012 FINDINGS: Mild atrophy, commensurate with age. There are scattered mild periventricular and subcortical white matter changes, most likely related to small vessel ischemic disease (microangiopathy). No ventriculomegaly or midline shift. Basilar cisterns are patent. There is intracranial atherosclerosis. Paranasal sinuses and mastoids are pneumatized. No acute hemorrhage, infarction, mass or mass effect. IMPRESSION: 1. No acute intracranial abnormality. Reviewed, dictated and finalized at location I. [employer]
--- OUTSIDE RECORDS SUMMARY | 2025-02-21 16:47 | XMS_ITS | Clinical Summary ---
Author Organization [facility] Address [address] [place] [address] Care Team Providers Care Parks Recreation Director Name Role Phone Tequila Rodriguez MD Primary Care Provider Source Comments [facility],non-owned Affiliates and Associated Physician Practices is amultiple site organization consisting of ambulatory clinics and hospital sitesin [place], [place]. This disclosure is being madepursuant to the Care Everywhere program and may not contain all information available regarding this patient. 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 Gender Identity Not on file Sexual Orientation Not on file Last Filed Vital Signs Vital Sign Reading Time Taken Comments Blood Pressure 115/76 01/30/2024 2:13 PM MULTIMEDIA SERVICES COORDINATOR Pulse 60 01/30/2024 2:13 PM MULTIMEDIA SERVICES COORDINATOR Temperature 36.5 C (97.7 F) 01/30/2024 2:13 PM MULTIMEDIA SERVICES COORDINATOR Respiratory Rate 16 12/26/2016 1:10 PM CDT Oxygen Saturation 97% 01/30/2024 2:13 PM MULTIMEDIA SERVICES COORDINATOR Inhaled Oxygen Concentration - - Weight 66.2 kg (146 lb) 01/30/2024 2:13 PM MULTIMEDIA SERVICES COORDINATOR Height 163.8 cm (5' 4.5) 01/30/2024 2:13 PM MULTIMEDIA SERVICES COORDINATOR Body Mass Index 24.67 01/30/2024 2:13 PM MULTIMEDIA SERVICES COORDINATOR Plan of Treatment Health Maintenance Due Date Last Done Comments COLOGUARD (AGES 45-75) - COLON CA SCREENING 1960 COLON MONITORING 1961 COLONOSCOPY - COLON CA SCREENING 1961 CT COLONOGRAPHY - COLON CA SCREENING 1960 Colorectal Cancer Screening 1960 FIT - COLON CA SCREENING 1961 FLEX SIG - COLON CA SCREENING 1961 MAMMOGRAM 1961 HIV SCREENING 1976 DTAP/TDAP/TD VACCINES (1 - Tdap) 1980 Cervical Cancer Screening 1982 PAP SMEAR 1982 PAP with HPV 12/09/1991 PNEUMOCOCCAL VACCINE 50+ (1 of 1 - PCV) 12/09/2011 ZOSTER VACCINE (1 of 2) 12/09/2011 DEPRESSION SCREENING 03/20/2024 10/04/2022, 10/06/19 22 COVID-19 VACCINE ( - 2024- season) 2024 05/18/2021, 06/18/2020, 05/28/2020 INFLUENZA VACCINE (#1) 2024 2, 11/12/2019, 11/09/2018, [...] Procedure Name Priority Date/Time Associated Diagnosis Comments HEPATITIS C ANTIBODY Routine 06/26/2014 3:02 PM CDT from Last 3 Months or Most Recently Relevant to Health Maintenance Results * HEPATITIS C ANTIBODY (06/26/2014 3:02 PM CDT) Hepatitis C Antibody NON-REACTI VE NON-REACT [facility] Signal/Cutoff 0.01 <1.00 [facility] Comment: Test Performed at: [facility] [address] [place] [address] WALLACE TAYLOR DO,MPH Blood specimen (specimen) BLOOD SPECIMEN / Unknown 06/26/2014 3:02 PM CDT 06/26/2014 3:03 PM CDT Narrative [facility] - 06/30/2014 12:00 PM CDT Copy to patient Copy to PCP, Amy Sky, fax:[phone] [facility] - CHEMISTRY ORDERABLES Ed ited Result - Final [facility] [id number] from Last 3 Months or Most Recently Relevant to Health Maintenance Insurance [facility] SELF PAY NO INSURANCE Member Subscriber Plan / Payer (Ef fective for All Dates) Name:Sarah Pendleton Member ID:Not on file Relation to Subscriber:Not on file Name:SARAH PENDLETON Subscriber ID:Not on file (Home) Address: [address] [place] [id number] Payer ID:Not on file Group ID:Not on file Type:Self Pay Address: [place], [place] Care Teams Parks Recreation Director Relationship Specialty Start Date End Date Tequila Rodriguez MD [address] [place] [address] PCP - General 02/08/22
--- OUTSIDE RECORDS SUMMARY | 2025-02-21 16:47 | XMS_ITS | Clinical Summary ---
Author Organization [facility] Address [address], [address] [address] Phone Care Team Providers Care Hospice Liaison Name Role Phone Pedro Byrnes MD Primary Care Provider [phone] Medications polyethylene glycol (MIRALAX) Powder Mix the entire bottle with 64 oz of a clear liquid. Use as directed by the office for colonoscopy prep. 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
--- OUTSIDE RECORDS SUMMARY | 2025-02-21 16:47 | XMS_ITS | Clinical Summary ---
Author Organization [facility] [place] [facility] Address [address] [place] [address] Care Team Providers Care Inset Cutter Name Role Phone Tequila Rodriguez MD Primary Care Provider Allergies Active Allergy Reactions Criticality Noted Date Comments Atorvastatin Other (See comments) Low 01/15/2018 Progesterone Shortness of breath High 12/23/2021 Medications loratadine 10 mg capsule Take by mouth Active diclofenac DR (VOLTAREN) 75 mg EC tablet Take 75 mg by mouth 2 (two) times a day Active pregabalin (LYRICA) 50 mg capsule Take 50 mg by mouth 3 (three) times a day Active gabapentin (NEURONTIN) 100 mg capsule Take by mouth 3 (three) times a day Active methocarbamoL (ROBAXIN) 750 mg tablet Take 750 mg by mouth 4 (four) times a day Active dicyclomine (BENTYL) 10 mg capsule Take 10 mg by mouth 4 (four) times a day before meals and nightly Active ergocalciferol (VITAMIN D) 50,000 unit capsule TAKE 1 CAPSULE BY MOUTH once weekly DIRECTED 2 Active benzonatate (TESSALON) 100 mg capsule TAKE 1 CAPSULE BY MOUTH TWICE A DAY NEEDED FOR COUGH Active omeprazole (PriLOSEC) 20 mg capsule TAKE 1 CAPSULE BY MOUTH TWICE A DAY FOR 1 MONTH 5 Active amitriptyline (ELAVIL) 25 mg tablet 5 Active rosuvastatin (CRESTOR) 40 mg tabletIndication s:Familial hypercholesterol emia, unspecified type Take 1 tablet (40 mg total) by mouth daily 30 tablet 11 01/07/20 Active ezetimibe (ZETIA) 10 mg tabletIndication s:Familial hypercholesterol emia, unspecified type Take 1 tablet (10 mg total) by mouth daily 30 tablet 01/07/20 Active alirocumab 75 mg/mL pen injectorIndicati ons:hypercholest erolemia Inject 75 mg under the skin every 14 (fourteen) days 2 mL 02/06/20 Active Problems Problem Noted Date Diagnosed Date Familial hypercholesterolemia 01/02/2025 Assessment & Plan (01/03/2025 7:20 PM CDT): 64 y.o. female with dyslipidemia, including severe hypercholesterolemia (LDL-C 194 and 238 mg/dL) currently taking lipid-lowering therapies Rosuvastatin (Crestor) 40 mg/day + Ezetimibe (Zetia) 10 mg/day; most recent lipid profile reviewed. History of statin intolerance = Yes, statin myopathy or associated muscle symptoms (GARTH) 10-year risk of future ASCVD = intermediate risk (7.5-<20%) CT coronary calcium score = N/A Latest lipid panel: No results found for: POCCHOL, POCTRIG, POCHDL, POCLDL Lab Results Component Value Date CHOL 291 (H) 01/02/2025 TRIG 167 (H) 01/02/2025 HDL 66 01/02/2025 LDLCALC 194 (H) 01/02/2025 No results found for: LDLDIRECT No results found for: LIPOA No results found for: APOB Lab Results Component Value Date CRPHS 0.57 01/02/2025 LDL-C = 194(H) [ref. range: <= 129 mg/dL] - Primary hypercholesterolemia (LDL-C 160-189 mg/dL constitutes a risk enhancing factor; TG = 167(H) [ref. range: <= 149 mg/dL] - Persistently elevated, primary hypertriglyceridemia ( >=175 mg/dl) constitutes a risk enhancing factor Lp(a) = pending [ref. range: <= 75 nmol/L] - Lp(a) >= 50 mg/dL or >=125 nmol/L constitutes a risk enhancing factor ApoB = pending [ref. range: <= 90 mg/dL] - ApoB level >= 130 mg/dL corresponds to an LDL-C >=160 mg/dL and constitutes a risk enhancing factor Given severe hypercholesterolemia (LDL-C >=190 mg/dL) + first-degree relative with premature ASCVD = probable FH diagnosis Plan: 1) Repeat lipid panel at least annually; check direct LDL-C, Lp(a), ApoB, and hs-CRP as indicated 2) Weight control, exercise, diet (low saturated fat and sugar), smoking cessation (if applicable) 3) Continue statin (for both LDL-C & TG reduction) CONTINUE Rosuvastatin (Crestor) 40 mg/day + Ezetimibe (Zetia) 10 mg/day 4) Consider adding other non-statin LDL-C lowering agents (if LDL-C remains > 70 mg/dl for primary prevention, on maximally tolerated statin) Bempedoic acid (NEXLETOL) 180 mg PO daily Bempedoic acid may raise uric acid levels, use cautiously in patients with recurrent gout 5) Consider adding PCSK9 inhibitor (for Lpa reduction and/or if LDL-C remains > 70 mg/dl for primary prevention on maximally tolerated statin) Discussed high burden of therapy (ie, cost, subcutaneous injections) START Alirocumab (Praluent) 75 mg SC q 2 weeks -or - Evolocumab (Repatha) 140 mg SC q 2 weeks 6) No indications for adding other TG-lowering agents 7) Consider CT coronary artery calcium (CAC) scan, if not already assessed 8) Consider genetic testing for pathogenic variant(s) of LDLR, APOB, or PCSK9 genes Pure hypercholesterolemia 08/06/2023 Pelvic congestion 01/05/2022 Assessment [...] plan in regards to degenerative disc disease. Encounters Date Type Department Care Team Description 01/09/2025 Telephone [facility] Medicine Endocrinology Metabolism and Lipid [address] [facility] [address] [place] [address] [place] [address] Marline Jim, RN Med Management 01/03/2025 Orders Only [facility] Endocrinology Metabolism and Lipid [address] [facility] [address] [place] [address] [place] [address] Asad Harvey MD PhD 01/02/2025 8:10 PM CDT Lab [facility] ([facility]) [address] [place] [address] Familial hypercholesterolemia , unspecified type 01/02/2025 3:00 PM CDT Office Visit [facility] Endocrinology Metabolism and Lipid [address] [facility] [address] [place] [address] [place] [address] Asad Harvey MD PhD Familial hypercholesterolemia , unspecified type (Primary Dx) from Last 3 Months Immunizations Immunization Administration Dates Next Due Influenza, [...] Packs/Day Years Used Date Smoking Tobacco: Former Tobacco Cessation:Counseling Given: Not Answered Comments Unknown Sex and Gender Information Value Date Recorded Sex Assigned at Not on file 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 Gender Identity Not on file Sexual Orientation Not on file Last Filed Vital Signs Vital Sign Reading Time Taken Comments Blood Pressure 116/72 01/02/2025 2:59 PM CDT Pulse 67 01/02/2025 2:59 PM CDT Temperature 37 C (98.6 F) 01/02/2025 2:59 PM CDT Respiratory Rate - - Oxygen Saturation 97% 07/04/2012 3:03 PM CDT Inhaled Oxygen Concentration - - Weight 64.9 kg (143 lb) 01/02/2025 2:59 PM CDT Height 162.6 cm (5' 4) 01/02/2025 2:59 PM CDT Body Mass Index 24.55 01/02/2025 2:59 PM CDT Plan of Treatment Health Maintenance Due Date Last Done Comments Breast Cancer Screening-Mammogram 1961 Cervical Cancer Screening 1961 Colon Cancer Screening-Colonoscopy 1961 Depression Screening 1961 Hepatitis C Screening 1961 DTaP/Tdap/Td Vaccine (1 - Tdap) 1972 Hepatitis B Screening 12/09/1979 Regular Well Visit/Exam 18-64 12/09/1979 Zoster Vaccine (1 of 2) 12/09/2011 Covid-19 Vaccine ( season) 2024 05/18/2021, 06/18/2020, 05/28/2020 Influenza Vaccine (#1) 2024 2, 11/12/2019, 11/09/2018, Additional history exists Pneumococcal vaccine <65 Aged Out No longer eligible based on patient's age to complete this topic Procedures Procedure Name Priority Date/Time Associated Diagnosis Comments EGFR Routine 01/02/2025 4:50 PM CDT Familial hypercholesterolemi a, unspecified type LIPOPROTEIN A (LPA) Routine 01/02/2025 4 :50 PM CDT Familial hypercholesterolemi a, unspecified type APOLIPOPROTEIN B Routine 01/02/2025 4:50 PM CDT Familial hypercholesterolemi a, unspecified type CRP, HIGH SENSITIVITY Routine 01/02/2025 4:50 PM CDT Familial hypercholesterolemi a, unspecified type LIPID PANEL Routine 01/02/2025 4:50 PM CDT Familial hypercholesterolemi a, unspecified type COMPREHENSIVE METABOLIC PANEL Routine 01/02/2025 4:50 PM CDT Familial hypercholesterolemi a, unspecified type HEMOGLOBIN A1C Routine 01/02/2025 4:50 PM CDT Familial hypercholesterolemi a, unspecified type C-PEPTIDE Routine 01/02/2025 4:50 PM CDT Familial hypercholesterolemi a, unspecified type from Last 3 Months Results * eGFR (01/02/2025 4:50 PM CDT) eGFR >90 >=60 mL/min/1. 73 m2 Comment: Interpretive Data Reference Interval Normal >/= 90 mL/min/1.73m2 Mildly decreased* 60 - 89 mL/min/1.73m2 Mildly to moderately decreased 45 - 59 mL/min/1.73m2 Moderately to severely decreased 30 - 44 mL/min/1.73m2 Severely decreased 15 - 29 mL/min/1.73m2 Kidney Failure < 15 mL/min/1.73m2 *Relative to young adult level Estimated glomerular filtration rate is determined by the 2020 CKD-EPI equation recommended by the National Kidney Foundation (A Unifying Approach to GFR Estimation: Recommendations of the NKF-ASK Task Force on Reassessing the Inclusion of Race in Diagnosing Kidney Disease, JASN 2020). The CKD-EPI equation should not be used for patients with unstable renal function and has not been validated in children and those over 70. Current interpretive data was last reviewed 2021. Blood 01/02/2025 4:50 PM CDT 01/02/2025 5:36 PM CDT us Asad Harvey MD PhD LAB BLOOD ORDERABLES Fin al Result [facility] [place] [address] * (ABNORMAL) Apolipoprotein B, serum (01/02/2025 4:50 PM CDT) Apolipoprotein B 136(H) mg/dL [place] [facility] Comment: REFERENCE VALUE Desirable: <90 Above Desirable: 90-99 Borderline high: 100-119 High: 120-139 Very high: > or = 140 Test Performed by: [address] [address] Pelletizer Operator: Lucia Acevedo Ph.D.; CLIA# [id number] Blood 01/02/2025 4:50 PM CDT 01/02/2025 5:53 PM CDT Asad Harvey MD PhD LAB BLOOD ORDERABLES Fin al Result [facility] [place] [address] [facility] Lab * Lipoprotein a (LPa) (01/02/2025 4:50 PM CDT) Pathologist [facility] Lipoprotein A <7 <75 nmol/L [place] [facility] Comment: ADDITIONAL INFORMATION Please notice that Lp(a) values are reported in molar units (nmol/L). These units are recommended by professional society guidelines and expert opinion statements. Measured results and risk thresholds are higher than those generated using mass units (mg/dL). Cardiovascular risk increases starting at 75 nmol/L. Lp(a) >=125 nmol/L is considered a risk enhancing factor by the [place] [employer]. This test has been modified from the safety risk lead's instructions. Its performance characteristics were determined by [facility] in a manner consistent with CLIA requirements. This test has not been cleared or approved by the U.S. Food and Drug Administration. Test Performed by: [address] [address] Pelletizer Operator: Lucia Acevedo Ph.D.; CLIA# [id number] Blood 01/02/2025 4:50 PM CDT 01/02/2025 5:54 PM CDT Asad Harvey MD PhD LAB BLOOD ORDERABLES Fin al Result Performing Organization Address City/[facility] Co de Phone Number [facility] [place] [address] [place] [facility] * C-peptide (01/02/2025 4:50 PM CDT) Pathologist [facility] C-peptide 2.17 1.10 - 4.40 ng/mL Blood 01/02/2025 4:50 PM CDT 01/02/2025 5:19 PM CDT Asad Harvey MD PhD LAB BLOOD ORDERABLES Fin al Result Performing Organization Address [facility] [place] [address] * CRP (cardiac risk) (01/02/2025 4:50 PM CDT) [facility] hsCRP 0.57 mg/L Comment: Interpretive data Adult only - values greater than or equal to 10 mg/L are consistent with infection or inflammation. Individuals with evidence of active infection, systemic inflammatory processes, or trauma should not be tested until these conditions have abated. When using HS CRP to assess cardiovascular risk, two measurements should be taken, two weeks apart (averaging results). The CDC/AHA recommended the following HS CRP cut off points (tertiles) for CVD assessment. Adult low risk <1.0 mg/L Average risk 1.0 - 3.0 mg/L High Risk >3.0 mg/L Current interpretive data was last revised on 2017. Blood 01/02/2025 4:50 PM CDT 01/02/2025 5:19 PM CDT Asad Harvey MD PhD LAB BLOOD ORDERABLES Fin al Result Performing Organization Address [facility] de Phone Number [facility] [place] [address] * Hemoglobin A1c (01/02/2025 4:50 PM CDT) Hgb A1C 5.4 4.0 - 5.6 % Estimated Average Glucose 108 mg/dL [facility] Comment: The ADA recommends reporting an estimated Average Glucose (eAG) with all Hemoglobin A1c results using the equation derived from a study of 507 normal and diabetic adults. Minority populations were underrepresented and children were not included. (Diabetes Care 2020; 43(S1): S66-S76). The eAG is not equivalent to a fasting glucose. Blood 01/02/2025 4:50 PM CDT 01/02/2025 5:19 PM CDT Result [facility] Asad Harvey MD PhD LAB BLOOD ORDERABLES Fin al Result Performing Organization Address [facility] de Phone Number [facility] [place] [address] * (ABNORMAL) Lipid panel (01/02/2025 4:50 PM CDT) Cholesterol 291(H) 30 - 199 mg/dL Comment: Interpretive Data Ages < or = 19 years Acceptable: <170 mg/dL Borderline high: 170-199 mg/dL High: >or= 200 mg/dL Ages > or = 20 years Desirable: <200 mg/dL Borderline high: 200-239 mg/dL High: >or= 240 mg/dL Literature References: 1. Expert Panel on Integrated Guidelines for Cardiovascular Health and Risk Reduction in Children and Adolescents. Pediatrics 2011;128:S213 2. NCEP Expert Panel. Circulation 2004;110:227 Current Interpretive Data was last revised on 2017. Triglycerides 167(H) <=149 mg/dL [facility] Comment: Interpretive Data Ages < or = 9 years Acceptable: <75 mg/dL Borderline high: 75-99 mg/dL High: >or= 100 mg/dL Ages 10 to 20 years Acceptable: <90 mg/dL Borderline high: 90-129 mg/dL High: >or= 130 mg/dL Ages > or = 20 years Desirable: <150 mg/dL Borderline high: 150-199 mg/dL High: 200-499 mg/dL Very high: >or= 499 mg/dL Literature References: 1. Expert Panel on Integrated Guidelines for Cardiovascular Health and Risk Reduction in Children and Adolescents. Pediatrics 2011;128:S213 2. NCEP Expert Panel. Circulation 2004;110:227 Current Interpretive Data was last revised on 2017. HDL 66 >=40 mg/dL [facility] Comment: Interpretive Data Ages < or = 19 years Acceptable: >45 mg/dL Borderline low: 40-45 mg/dL Low: <40 mg/dL Ages > or = 20 years Desirable: >or= 60 mg/dL Low: <40 mg/dL Literature References: 1. Expert Panel on Integrated Guidelines for Cardiovascular Health and Risk Reduction in Children and Adolescents. Pediatrics 2011;128:S213 2. NCEP Expert Panel. Circulation 2004;110:227 Current Interpretive Data was last revised on 2017. LDL, calculated 194(H) <=129 mg/dL [facility] Comment: Interpretive Data Ages < or = 19 years Acceptable: <110 mg/dL Borderline high: 110-129 mg/dL High: >or= 130 mg/dL Ages > or = 20 years Optimal: <100 mg/dL Near optimal: 100-129 mg/dL Borderline high: 130-159 mg/dL High: >160 mg/dL Calculated using the Raphael LDL-C estimating equation. This equation was implemented on 2023. Prior to this date LDL-C was estimated using the Friedewald equation. Literature References: 1. Expert Panel on Integrated Guidelines for Cardiovascular Health and Risk Reduction in Children and Adolescents. Pediatrics 2011;128:S213 2. NCEP Expert Panel. Circulation 2004;110:227 3. Raphael Pichardo al. THERESA Cardiol. 2020 July 18;5(5):540-548. doi: 10.1001/jamacardio.2020.0013 Current Interpretive Data was last revised on 2023. Non-HDL Cholesterol 225 mg/dL [facility] Comment: Interpretive Data Ages < or = 19 years Acceptable: <120 mg/dL Borderline high: 120-144 mg/dL High: >145 mg/dL Ages > or = 20 years When triglycerides are >200 mg/dL, Non-HDL cholesterol is a secondary target of therapy with treatment goals that are 30 mg/dL greater than the LDL cholesterol target. Literature References: 1. Expert Panel on Integrated Guidelines for Cardiovascular Health and Risk Reduction in Children and Adolescents. Pediatrics 2011;128:S213 2. NCEP Expert Panel. Circulation 2004;110:227 Current Interpretive Data was last revised on 2017. Chol/HDL ratio 4 [facility] Blood 01/02/2025 4:50 PM CDT 01/02/2025 5:19 PM CDT Narrative [facility] - 01/02/2025 6:33 PM CDT These lab test should be done fasting. This means do not eat or drink for at least 12 hours prior to getting your blood drawn. us Asad Harvey MD PhD LAB BLOOD ORDERABLES Fin al Result [facility] [place] [address] * (ABNORMAL) Comprehensive metabolic panel (01/02/2025 4:50 PM CDT) Sodium 142 135 - 145 mmol/L Potassium, pl 3.9 3.3 - 4.9 mmol/L [facility] Chloride 100 97 - 110 mmol/L [facility] CO2 32 22 - 32 mmol/L [facility] Anion gap 10 2 - 15 mmol/L [facility] BUN 9 6 - 25 mg/dL [facility] Creatinine 0.73 0.60 - 1.10 mg/dL [facility] Glucose 111 70 - 199 mg/dL [facility] Comment: Interpretive Data Fasting glucose >/= 126 mg/dl is diagnostic for diabetes. Fasting is defined as no caloric intake for at least 8 hours. Fasting glucose between 100 mg/dl to 125 mg/dl is diagnostic of prediabetes. In a patient with classic symptoms of hyperglycemia or hyperglycemic crisis, a random glucose >/= 200 mg/dl is diagnostic for diabetes. In the absence of unequivocal hyperglycemia, results should be confirmed by repeat testing. The classification and Diagnosis of Diabetes Diabetes Care 2021; 46: S19-S40. Current interpretive data was last revised 2022. Calcium 10.4(H) 8.5 - 10.3 mg/dL [facility] Bilirubin, total 0.4 0.1 - 1.2 mg/dL [facility] Protein, pl 8.1 6.5 - 8.5 g/dL [facility] Albumin 4.5 3.5 - 5.0 g/dL [facility] Alk phos 64 40 - 130 Units/L [facility] ALT 28 7 - 45 Units/L [facility] AST 33 10 - 45 Units/L [facility] Blood 01/02/2025 4:50 PM CDT 01/02/2025 5:19 PM CDT Asda Harvey MD PhD LAB BLOOD ORDERABLES Fin al Result [facility] [place] [address] from Last 3 Months Insurance [facility] Care Teams Inset Cutter Relationship Specialty Start Date End Date Tequila Rodriguez MD PCP - General Family Practice 12/14/21
--- OUTSIDE RECORDS SUMMARY | 2025-02-21 16:47 | XMS_ITS | Encounter Summary ---
Author Organization 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 Gender Identity Not on file Sexual Orientation Not on file documented as of this encounter Plan of Treatment Not on file documented as of this encounter Procedures Procedure Name Priority Date/Time Associated Diagnosis Comments SCAN - RADIOLOGY/IMAGING 08/29/2024 documented in this encounter Results * SCAN - RADIOLOGY/IMAGING (08/29/2024) Anatomical Region Laterality Modality Other us Provider Scanning Final Result documented in this encounter Visit Diagnoses Not on filedocumented in this encounter Care Teams Aromatherapist Relationship Specialty Start Date End Date Tequila Rodriguez MD PCP - General Family Practice 12/14/21 documented as of this encounter
--- NOTE | 2025-02-21 17:51 | ED.URI ---
HPI - URI/Sore Throat General Chief Complaint: Upper Respiratory Infection Stated Complaint: ear pain Time Seen by Provider: 02/21/25 17:50 Source: patient Mode of arrival: ambulatory Limitations: no limitations History of Present Illness HPI Narrative: 64 YEARS OLD WHITE FEMALE CAME TO THE ED COMPLAINING OF PAIN INSIDE THE RIGHT EAR, SHARP AND THROBBING STEADY STARTED ROUGHLY 5 DAYS AGO SUBSEQUENTLY STARTED HAVING PAIN ON THE RIGHT FACE AND RIGHT SIDE OF THE HEAD AND RIGHT SOME MANDIBULAR LYMPH NODES AND RIGHT SIDE SORE THROAT AND DEVELOPED RASH AT THE RIGHT SIDE OF THE FACE AND BLISTERS AT THE RIGHT SIDE OF THE LOWER LIP. DENIES ANY FEVER OR CHILLS OR NAUSEA OR VOMITING, WAS SEEN BY HER FAMILY PHYSICIAN YESTERDAY AND STARTED ON AUGMENTIN. PATIENT'S SYMPTOMS ARE GETTING WORSE. Related Data Home Medications ?Medication ?Instructions ?Recorded ?Confirmed ?Last Taken ?Type loratadine 10 mg tablet (Claritin) 10 mg PO DAILY 07/02/20 02/20/25 11/04/24 History diclofenac sodium 75 mg 75 mg PO BID 09/16/24 02/20/25 11/04/24 History tablet,delayed release ezetimibe 10 mg tablet 10 mg PO QHS 02/20/25 02/20/25 Unknown History rosuvastatin 40 mg tablet 40 mg PO QHS 02/20/25 02/20/25 Unknown History Allergies Allergy/AdvReac Type Severity Reaction Status Date / Time progesterone Allergy Unknown shortness Verified 02/20/25 11:41 of breath alendronate sodium AdvReac Mild Itching Verified 02/20/25 11:41 amitriptyline AdvReac Mild Swelling Verified 02/20/25 11:41 prednisolone AdvReac Mild Anxiety Verified 02/20/25 11:41 Review of Systems Review of Systems: All systems reviewed & are unremarkable except as noted in HPI and below PMFSH Past Medical History Medical History Hiatal hernia Epigastric pain Colitis Peripheral neuropathy GERD without esophagitis Seasonal allergies Adenomatous colon polyp Pelvic congestion syndrome Chronic hip pain, bilateral Chronic neck and back pain Fibromyalgia Mixed hyperlipidemia Osteoporosis Primary osteoarthritis, unspecified site Surgical History Surgical History History of root canal procedure History of cervical spinal surgery 2003 Family History Family History Father Hypertension Cerebrovascular accident Other Family history of coronary artery disease Family history of elevated blood lipids Social History Social History Social History: Caffeine- daily Smoking packs per day: 0 Smoking cigarettes per day: 0.0 Years smoked: 0 Smoking pack-years: 0.00 Smoking status: Never smoker Second hand tobacco smoke exposure: No Alcohol intake: never Substance use: never Substance use type: does not use Lack of Transportation: No Lack of Food: Sometimes True Current Housing: I Have Housing Concerned About Future Housing: Decline to Answer Difficulty Paying Gas/Electric Bills: No Difficulty Paying for Meds: Decline to Answer Currently Unemployed: Decline to Answer Education: Decline to Answer Difficulty w/ Childcare or Family Care: No Living arrangements: alone Gender identity (if verbalized by the patient): Female Spiritual care concerns: No Exam Narrative: GENERAL APPEARANCE: WELL-DEVELOPED, WELL-NOURISHED SKIN: NORMAL COLOR RIGHT SIDE OF FACE SHOWING PATCHES OF ERYTHEMA, SLIGHTLY TENDER TO TOUCH, NO OBVIOUS BLISTERS, TENDER RIGHT SIDE OF THE SCALP WITH POSSIBLE RASH UNDER THE HAIR, RIGHT EAR WARM, SLIGHTLY ERYTHEMATOUS, DIFFUSELY TENDER, NO BLISTERS, SLIGHT RIGHT FACIAL DROOPING, MULTIPLE BLISTERS IN HER SIDE OF THE RIGHT LOWER LIP HEAD: NORMOCEPHALIC, NONTRAUMATIC EYES: CLEAR CONJUNCTIVA ENT: OROPHARYNX NORMAL, EARS NORMAL, NOSE NORMAL NECK: SUPPLE, NONTENDER CHEST AND RESPIRATORY: AIRWAY PATENT, NO RESPIRATORY DISTRESS, NO ACCESSORY MUSCLE USE HEART: REGULAR RATE/RHYTHM ABDOMEN: SOFT, NONTENDER, NO ORGANOMEGALY, QUIET BOWEL SOUNDS MUSCULOSKELETAL: NORMAL RANGE OF MOTION, NONTENDER BACK NEUROLOGIC: ALERT AND ORIENTED ?3, RIGHT FACIAL PARESIS WEAKNESS AND DROOPING ON THE RIGHT SIDE OF FACE, DROOLING RIGHT EYEBROW SLIGHT DIFFICULTY CLOSING THE RIGHT EYE, ALTERED SENSATION ON THE RIGHT SPACE Course Vital Signs Vital signs: Vital Signs Temperature 36.8 C 02/21/25 19:33 Pulse Rate 62 02/21/25 19:33 Respiratory Rate 22 H 02/21/25 19:33 Blood Pressure 136/72 02/21/25 19:33 Pulse Oximetry 98 02/21/25 19:33 Oxygen Delivery Room Air 02/21/25 19:33 Temperature 36.8 C 02/21/25 19:33 Pulse Rate 62 02/21/25 19:33 Respiratory Rate 22 H 02/21/25 19:33 Blood Pressure 136/72 02/21/25 19:33 Pulse Oximetry 98 02/21/25 19:34 Oxygen Delivery Room Air 02/21/25 19:34 MDM MDM Narrative Medical decision making narrative: PATIENT PRESENTS WITH SEVERE PAIN RIGHT EAR, RIGHT FACE, RIGHT FACIAL RASH, STARTED 5 DAYS AGO, STARTED ON AUGMENTIN YESTERDAY WITHOUT ANY IMPROVEMENT, SYMPTOMS ARE WORSENING VITAL SIGNS PHYSICAL EXAMINATION ABOVE DIFFERENTIAL DIAGNOSIS INCLUDE RIGHT FACIAL PAIN, DEE CONTE SYNDROME BLOOD WORKUP TODAY INCLUDES CBC, CMP, SED RATE SHOWED CT HEAD WITHOUT CONTRAST SHOWED NO ACUTE ABNORMALITY Patient is allergic to prednisone Diagnosis Dee Conte dental and ocular syndrome Discharged on Valtrex, [place]. The pt was discharged to home.the pt,s condition upon discharge was fair,education was provided to the pt in reference to the final impression,discharge study results,treatment,prognosis and need for follow up . Differential Diagnosis Differential Diagnosis: As above Medical Records I have reviewed the following patient records and this information was taken into consideration when formulating the assessment and plan.: previous labs, previous ER visits, previous hospitalizations and previous clinic visits Lab Data 02/21/25 19:16 02/21/25 19:16 Labs: Lab Results 02/21/25 Range/Units 19:16 WBC 3.1 L (4.5-10.0) K/mm3 RBC 4.41 (4.2-5.4) M/mm3 Hgb 13.9 (12.0-15.0) g/dL Hct 40.5 (37.0-47.0) % MCV 91.8 (80-100) fl MCH 31.5 (26-34) pg MCHC 34.3 (32-36) g/dl RDW 11.7 (11.5-14.5) % Plt Count 245 (150-375) k/mm3 MPV 9.0 (7.4-10.4) fl Immature Gran % (Auto) 0.3 (0-0.5) % Neut % (Auto) 50.7 (45.5-73.1) % Lymph % (Auto) 34.7 (18.3-44.2) % Fergus % (Auto) 11.4 H (2.6-8.5) % Eos % (Auto) 1.6 (0-4.4) % Baso % (Auto) 1.3 H (0.2-1.2) % Lymph # (Auto) 1.07 (0.9-3.2) K/mm3 Fergus # (Auto) 0.4 (0.1-0.6) K/mm3 Eos # (Auto) 0.1 (0-0.3) K/mm3 Baso # (Auto) 0.0 (0.0-0.1) K/mm3 Abs Immat Gran (auto) 0.01 (0.00-0.031) K/mm3 Absolute Neuts (auto) 1.6 (1.3-6.7) K/mm3 Absolute Nucleated RBC 0.000 (0.0-0.012) K/mm3 Nucleated RBC % 0.0 (0.0-0.2) % ESR 12 (0-20) mm/hr Sodium 134 L (137-145) mmol/L Potassium 3.7 (3.4-5.0) mmol/L Chloride 101 (98-107) mmol/L Carbon Dioxide 26 (22-30) mmol/L Anion Gap 7 (4-12) mmol/L BUN 11 (7-17) mg/dL Creatinine 0.67 L (0.7-1.0) mg/dL Estim Creat Clear Calc 64 ml/min Estimated GFR > 60 (59 - ) Glucose 81 (65-110) mg/dL Calcium 9.6 (8.4-10.2) mg/dL Total Bilirubin 0.5 (0.2-1.3) mg/dL AST 44 H (14-36) U/L ALT 34 (6-35) U/L Alkaline Phosphatase 76 (38-126) U/L Total Protein 8.5 H (6.3-8.2) g/dL Albumin 4.9 (3.5-5.1) g/dL Imaging Data Radiologist's impression: ITS Impressions Head CT 02/21/25 19:10 IMPRESSION: 1. No acute intracranial abnormality. 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 Continue home medications Patient Language: Mohawk Prescriptions: New hydrocodone-acetaminophen 5-325 mg tablet 1 tablet PO Q4H Qty: 20 0RF valacyclovir [Valtrex] 1 gram tablet 1,000 mg PO Q8H Qty: 21 0RF No Action loratadine [Claritin] 10 mg tablet 10 mg PO DAILY Caltrate 600 plus D 600 mg-20 mcg (800 unit) tablet,chewable 1 tablet PO BID Qty: 180 1RF diclofenac sodium 75 mg tablet,delayed release (DR/EC) 75 mg PO BID ezetimibe 10 mg tablet 10 mg PO QHS rosuvastatin 40 mg tablet 40 mg PO QHS amoxicillin-pot clavulanate 875-125 mg tablet 1 tablet PO Q12H Qty: 20 0RF (DME) shower chair See Rx Instructions .Route .MEDSUPPLY Qty: 1 0RF Rx Instructions: As directed omeprazole 20 mg capsule,delayed release(DR/EC) 20 mg PO BID 30 Days Qty: 60 3RF methocarbamol 750 mg tablet See Rx Instructions .ROUTE .COMPLEX Qty: 90 5RF Dose Instruction: TAKE ONE TABLET (750MG) BY MOUTH UP TO THREE TIMES A DAY NEEDED Rx Instructions: TAKE ONE TABLET (750MG) BY MOUTH UP TO THREE TIMES A DAY NEEDED magnesium oxide 400 mg (241.3 mg magnesium) tablet See Rx Instructions .ROUTE .COMPLEX Qty: 90 1RF Dose Instruction: TAKE ONE TABLET (400 MG) ORALLY DAILY WITH A MEAL DIRECTED Rx Instructions: TAKE ONE TABLET (400 MG) ORALLY DAILY WITH A MEAL DIRECTED fluticasone propionate [Flonase Allergy Relief] 50 mcg/actuation spray,suspension 1 spray intranasal DAILY PRN (Reason: allergy symptoms) Qty: 16 2RF Rx Instructions: administer into each nostril benzonatate 100 mg capsule 100 mg PO BID PRN (Reason: cough) Qty: 60 1RF pregabalin 50 mg capsule 50 mg PO QHS Qty: 90 1RF pregabalin 75 mg capsule 75 mg PO QAM Qty: 90 1RF Follow-up/Referrals: Shital Rodriguez MD [Primary Care Provider, Family Practice]
--- OUTSIDE RECORDS SUMMARY | 2025-02-21 18:50 | XMS_ITS | Encounter Summary ---
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
--- OUTSIDE RECORDS SUMMARY | 2025-02-21 18:50 | XMS_ITS | Clinical Summary ---
Author Organization [facility] Address [address], [address] [address] Phone Care Team Providers Care Assistant To The Ceo Name Role Phone Pedro Byrnes MD Primary Care Provider [phone] Medications polyethylene glycol (MIRALAX) Powder Mix the entire bottle with 64 oz of a clear liquid. Use as directed by the office for colonoscopy prep. 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
--- OUTSIDE RECORDS SUMMARY | 2025-02-21 18:51 | XMS_ITS | Clinical Summary ---
Author Organization [facility] Address [address] [address] Care Team Providers Care Corporate Concierge Name Role Phone Tequila Rodriguez MD Primary Care Provider Source Comments [facility],non-owned Affiliates and Associated Physician Practices is amultiple site organization consisting of ambulatory clinics and hospital sitesin [place], [place], [place] and [place]. This disclosure is being madepursuant to the Care Everywhere program and may not contain all information available regarding this patient. 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 Gender Identity Not on file Sexual Orientation Not on file Last Filed Vital Signs Vital Sign Reading Time Taken Comments Blood Pressure 115/76 01/30/2024 2:13 PM CORPORATE AIRCRAFT MECHANIC Pulse 60 01/30/2024 2:13 PM CORPORATE AIRCRAFT MECHANIC Temperature 36.5 C (97.7 F) 01/30/2024 2:13 PM CORPORATE AIRCRAFT MECHANIC Respiratory Rate 16 12/26/2016 1:10 PM CDT Oxygen Saturation 97% 01/30/2024 2:13 PM CORPORATE AIRCRAFT MECHANIC Inhaled Oxygen Concentration - - Weight 66.2 kg (146 lb) 01/30/2024 2:13 PM CORPORATE AIRCRAFT MECHANIC Height 163.8 cm (5' 4.5) 01/30/2024 2:13 PM CORPORATE AIRCRAFT MECHANIC Body Mass Index 24.67 01/30/2024 2:13 PM CORPORATE AIRCRAFT MECHANIC Plan of Treatment Health Maintenance Due Date [...] <1.00 [facility] Comment: Test Performed at: [facility] [address] [place] [address] WALLACE TAYLOR DO,MPH Blood specimen (specimen) BLOOD SPECIMEN / Unknown 06/26/2014 3:02 PM CDT 06/26/2014 3:03 PM CDT Narrative [facility] - 06/30/2014 12:00 PM CDT Copy to patient Copy to PCP, Amy Sky, fax:[phone] [facility] - CHEMISTRY ORDERABLES Ed ited Result - Final [facility] [id number] from Last 3 Months or Most Recently Relevant to Health Maintenance Insurance [facility] SELF PAY NO INSURANCE Member Subscriber Plan / Payer (Ef fective for All Dates) Name:Sarah Pendleton Member ID:Not on file Relation to Subscriber:Not on file Name:SARAH PENDLETON Subscriber ID:Not on file (Home) Address: [address] [place] [id number] Payer ID:Not on file Group ID:Not on file Type:Self Pay Address: [place], [place] Care Teams Corporate Concierge Relationship Specialty Start Date End Date Tequila Rodriguez MD [address] [place] [address] PCP - General 02/08/22
[2025-02-21] MEDS: IBUPROFEN 400 MG TABLET 800 MG PO (19:26)
[2025-02-21] MEDS: HYDROcodone/acetaminophen (*CRX) 5-325 MG TABLET 1 TAB PO (19:27)
[2025-02-21 19:29] LABS: Hematocrit 40.5 % (37.0-47.0); Hemoglobin 13.9 g/dL (12.0-15.0); Immature Granulocyte Percent A 0.3 % (0-0.5); Lymphocytes Absolute Auto 1.07 K/mm3 (0.9-3.2); Mean Corpuscular HGB Conc 34.3 g/dl (32-36); Mean Corpuscular Hemoglobin 31.5 pg (26-34); Mean Corpuscular Volume 91.8 fl (80-100); Nucleated Red Blood Cells Absolute Auto 0.000 K/mm3 (0.0-0.012); Nucleated Red Blood Cells Perc 0.0 % (0.0-0.2); Platelet Count Result 245 k/mm3 (150-375); Red Blood Count 4.41 M/mm3 (4.2-5.4); White Blood Count 3.1 K/mm3 (4.5-10.0)
[2025-02-21 19:33] VITALS: BP 136/72; PULSE 62; RESP 22; TEMP 36.8; O2SAT 98
[2025-02-21 19:34] VITALS: O2SAT 98
[2025-02-21 19:54] LABS: Alanine Aminotransferase 34 U/L (6-35); Albumin Level 4.9 g/dL (3.5-5.1); Alkaline Phosphatase 76 U/L (38-126); Anion Gap 7 mmol/L (4-12); Aspartate Amino Transferase 44 U/L (14-36); Bilirubin,Total 0.5 mg/dL (0.2-1.3); Blood Urea Nitrogen 11 mg/dL (7-17); Calcium 9.6 mg/dL (8.4-10.2); Carbon Dioxide 26 mmol/L (22-30); Chloride 101 mmol/L (98-107); Estimated CRCL calculation 64 ml/min; Estimated Glomerular Filt Rate > 60; Glucose 81 mg/dL (65-110); Potassium 3.7 mmol/L (3.4-5.0); Sodium 134 mmol/L (137-145); Total Protein 8.5 g/dL (6.3-8.2)
== END 2025-02-21 21:01 | disposition home or self-care (01) ==
PROVIDERS: Emergency Provider Emergency Medicine; PCP Family Medicine
DX: B02.21 Postherpetic geniculate ganglionitis (principal); E78.2 Mixed hyperlipidemia; G62.9 Polyneuropathy, unspecified; M81.0 Age-related osteoporosis without current pathological fracture; M19.90 Unspecified osteoarthritis, unspecified site; M79.7 Fibromyalgia; K21.9 Gastro-esophageal reflux disease without esophagitis; Z86.0101 Personal history of adenomatous and serrated colon polyps
CPT/HCPCS: 36415; 70450; 80053; 85025; 85652; 99284; A9270